=== PATIENT | female | born 1950 | race Caucasian/White ===

== ENCOUNTER 2018-02-02 15:39 | Emergency (ER) | payer MEDICARE, SELFPAY ==
[2018-02-02 15:49] VITALS: BP 154/82; PULSE 78; RESP 16; TEMP 37; O2SAT 98; BMI 29.5
--- NOTE | 2018-02-02 15:56 | DI.RAD.S_ITS ---
PROCEDURE: XR WRIST LT MIN 3V INDICATIONS: injury to left forearm TECHNIQUE: 3 views of the wrist were acquired. COMPARISON: None. FINDINGS: Bones: There is a lucency in the distal radial metaphysis. No dislocations. Severe triscaphe joint degeneration. No suspicious bony lesions. Scaphoid view: Scaphoid is intact. Soft tissues: No suspicious soft tissue calcifications. IMPRESSION: A lucency in the distal radial metaphysis may be displaced fracture or artifact. Dictated by: Roberto Lui M.D. on 02/02/2018 at 16:14 Approved by: Roberto Lui M.D. on 02/02/2018 at 16:17
--- NOTE | 2018-02-02 17:51 | ED.UPPEXIN ---
HPI - Extremity Injury (Upper) <ASHLIE Jewell - Last Filed: 02/02/18 23:13> General Chief Complaint: Extremity Injury, Upper Stated Complaint: ARM MAY BE BROKEN Time Seen by Provider: 02/02/18 17:51 Source: patient Mode of arrival: ambulatory Limitations: no limitations History of Present Illness HPI narrative: 59-year-old female here for complaint of pain into her left arm. She states she got her arm stuck between a open elevated and a railing earlier today. She complains of pain into her left wrist area. She reports increased pain with motion of the left wrist. She reports having slight swelling to the area. She denies any other injuries or concerns at this time. She reports holding her wrist still reduced pain. Related Data Home Medications Medication Instructions Recorded Confirmed CYANOCOBALAMIN (#VITAMIN B12) 25 mcg PO Q DAY #0 06/16/11 VITAMIN D (Vitamin D3) 1,000 unit PO QDAY #0 06/16/11 Previous Rx's Medication Instructions Recorded prednisone 10 mg PO SEE INSTRUCTIONS #30 tab 05/03/16 levothyroxine 12.5 mcg PO SEE INSTRUCTIONS #90 05/10/16 tab diazepam 5 mg PO Q8HP PRN #20 tab 06/08/16 hydrocodone-acetaminophen 1 tab PO Q6HP PRN #20 tab 06/08/16 hydrocodone-acetaminophen [[place]] 1 tab PO Q4-6H PRN #10 tab 02/02/18 Allergies Allergy/AdvReac Type Severity Reaction Status Date / Time fluoxetine [FLUOXETINE] Allergy Severe FACIAL Unverified 02/02/18 15:49 SWELLING sertraline [SERTRALINE] AdvReac Severe SHAKES Unverified 02/02/18 15:49 epinephrine [EPINEPHRINE] AdvReac Unknown SENSITIVE Unverified 02/02/18 15:49 Review of Systems <ASHLIE Jewell - Last Filed: 02/02/18 23:13> Constitutional Denies chills, Denies fever(s), Denies lethargy and Denies weakness Eyes Denies change in vision, Denies eye discharge, Denies irritation and Denies loss of vision ENT Ears, Nose, Mouth, and Throat: Denies change in voice, Denies neck pain and Denies sore throat Cardiovascular Denies chest pain, Denies irregular heart rhythm, Denies lightheadedness, Denies palpitations, Denies dyspnea, Denies dyspnea on exertion and Denies orthopnea Respiratory Denies cough, Denies dyspnea, Denies dyspnea on exertion and Denies wheezing Gastrointestinal Gastrointestinal: Denies abdominal pain, Denies change in bowel habits, Denies diarrhea, Denies nausea and Denies vomiting Genitourinary Denies hematuria, Denies flank pain, Denies urinary incontinence and Denies urinary urgency Musculoskeletal Denies neck pain Comments: Left wrist pain Neurologic Denies loss of vision and Denies weakness Endocrine Denies palpitations Allergic/Immunologic Denies wheezing Exam <ASHLIE Jewell - Last Filed: 02/02/18 23:13> Initial Vital Signs Initial Vital Signs: Vital Signs Temperature 98.6 F 02/02/18 15:49 Pulse Rate 78 02/02/18 15:49 Respiratory Rate 16 02/02/18 15:49 Blood Pressure 154/82 H 02/02/18 15:49 Pulse Oximetry 98 02/02/18 15:49 Const General: cooperative and well developed Nutritional Appearance: well nourished Orientation: alert, awake, oriented x3 and not confused [facility] Mouth: oral mucosae normal and moist mucous membranes Eyes Conjunctivae: conjunctivae normal Sclera: sclerae normal Pupils: PERRL EOM: EOM intact bilaterally Resp Effort & Inspection: normal respiratory effort, able to speak in complete sentences, no respiratory distress and no use of accessory muscles Auscultation: clear to auscultation bilaterally, no rales, no rhonchi and no wheezes Cardio Rate: regular rate Rhythm: regular rhythm Heart Sounds: no click, no gallops, no murmurs and no rubs Skin General: no rashes or lesions noted, No jaundice and No petechiae Neuro General: alert, oriented x3, gait normal and no focal motor deficits Speech: speech normal Extrem Other: Left wrist with no deformities. Slight amount of swelling. No ecchymosis. Distal sensation is intact. Distal range of motion is intact. Distal pulses are intact. <Evan Upton MD - Last Filed: 02/03/18 04:55> Initial Vital Signs Initial Vital Signs: Vital Signs Temperature 98.6 F 02/02/18 15:49 Pulse Rate 78 02/02/18 15:49 Respiratory Rate 16 02/02/18 15:49 Blood Pressure 154/82 H 02/02/18 15:49 Pulse Oximetry 98 02/02/18 15:49 Procedures <ASHLIE Jewell - Last Filed: 02/02/18 23:13> Orthopedic Splinting/Casting Injury #1: Side: left Upper Extremity Injury Location: wrist Upper Extremity Immobilizer: sugar tong splint Additional Comments: Sugar tong splint applied to left wrist by nursing staff. Applied appropriately. Distal CMS was intact after application. Course <ASHLIE Jewell - Last Filed: 02/02/18 23:13> Orders Ordered: Discontinued Medications Hydrocodone Bitart/Acetaminophen (Vicodin Prepack) 1 bottle MISC SEEINSTR ONE Stop: 02/02/18 19:22 Last Admin: 02/02/18 19:48 Dose: 1 bottle Vital Signs - 8 hr 02/02/18 15:49 02/02/18 19:56 Temperature 98.6 F 98.2 F Pulse Rate 78 99 H Respiratory Rate 16 16 Blood Pressure 154/82 H 144/68 H Pulse Oximetry 98 98 <Evan Upton MD - Last Filed: 02/03/18 04:55> Orders Ordered: Discontinued Medications Hydrocodone Bitart/Acetaminophen (Vicodin Prepack) 1 bottle MISC SEEINSTR ONE Stop: 02/02/18 19:22 Last Admin: 02/02/18 19:48 Dose: 1 bottle Vital Signs - 8 hr 02/02/18 15:49 02/02/18 19:56 Temperature 98.6 F 98.2 F Pulse Rate 78 99 H Respiratory Rate 16 16 Blood Pressure 154/82 H 144/68 H Pulse Oximetry 98 98 MDM - Extremity Injury (Upper) <ASHLIE Jewell - Last Filed: 02/02/18 23:13> Imaging Data wrist: Radiologist's impression: PROCEDURE: XR WRIST LT MIN 3V INDICATIONS: injury to left forearm TECHNIQUE: 3 views of the wrist were acquired. COMPARISON: None. FINDINGS: Bones: There is a lucency in the distal radial metaphysis. No dislocations. Severe triscaphe joint degeneration. No suspicious bony lesions. Scaphoid view: Scaphoid is intact. Soft tissues: No suspicious soft tissue calcifications. IMPRESSION: A lucency in the distal radial metaphysis may be non-displaced fracture or artifact. Dictated by: Roberto Lui M.D. on 02/02/2018 at 16:14 Approved by: Roberto Lui M.D. on 02/02/2018 at 16:17 ADDENDUM: Voice recognition errors corrected (underlined). Dictated by: Roberto Lui M.D. on 02/02/2018 at 16:18 Approved by: Roberto Lui M.D. on 02/02/2018 at 16:19 Addendum Dictated By: Brianna Lui M.D. Addendum Signed By: Addendum Cosigned By: DD/ /17/1620 TD/TT: 02/02/1810/17/1620 PROCEDURE: XR WRIST LT MIN 3V INDICATIONS: injury to left forearm TECHNIQUE: 3 views of the wrist were acquired. COMPARISON: None. FINDINGS: Bones: There is a lucency in the distal radial metaphysis. No dislocations. Severe triscaphe joint degeneration. No suspicious bony lesions. Scaphoid view: Scaphoid is intact. Soft tissues: No suspicious soft tissue calcifications. IMPRESSION: A lucency in the distal radial metaphysis may be displaced fracture or artifact. Dictated by: Roberto Lui M.D. on 02/02/2018 at 16:14 Approved by: Roberto Lui M.D. on 02/02/2018 at 16:17 [facility] Narrative Medical decision making narrative: X-ray the left wrist was obtained and shows possible lucency to the distal radius indicating possible fracture. She is placed in sugar-tong splint for comfort and support. [id number] Tylenol or Motrin as needed for any discomfort. Ice and elevation help with any swelling. Follow up with Orthopedics office call the number and number provided to schedule follow-up appointment. For any breakthrough pain not covered by Tylenol Motrin use [place] as prescribed return emergency room for any worsening symptoms. Discharge Plan Departure Patient Disposition: Home, Self-Care Clinical Impression: Fracture of wrist Discharge Date/Time: 02/02/18 19:57 Interventions: ED Discharge Assessment Last Done: 02/02/18 19:56 Instructions: DI for Wrist Fracture Activity Restrictions/Additional Instructions: X-ray the left wrist was obtained and shows possible fracture to the distal radius. You have been placed in a splint for comfort and support use as directed. [id number] Tylenol or Motrin as needed for any discomfort. Ice and elevation help with any swelling. Follow up with Orthopedics office call the number and number provided to schedule follow-up appointment. For any breakthrough pain not covered by Tylenol Motrin use [place] as prescribed return emergency room for any worsening symptoms. Prescriptions: New hydrocodone-acetaminophen [[place]] 5-325 mg tablet 1 tab PO Q4-6H PRN (Reason: pain) Qty: 10 RF: 0 No Action VITAMIN D (Vitamin D3) 1,000 unit PO QDAY Qty: 0 RF: 0 CYANOCOBALAMIN (#VITAMIN B12) 25 mcg PO Q DAY Qty: 0 RF: 0 prednisone 10 MG tablet 10 mg PO SEE INSTRUCTIONS Qty: 30 RF: 0 levothyroxine 25 MCG tablet 12.5 mcg PO SEE INSTRUCTIONS Qty: 90 RF: 4 hydrocodone-acetaminophen 5 MG/325 MG tablet 1 tab PO Q6HP PRNQty: 20 RF: 0 diazepam 5 MG tablet 5 mg PO Q8HP PRNQty: 20 RF: 0 Referrals: Trino Adhikari MD [Physician] - Khushboo Jenkins DO [Primary Care Provider] - <Evan Upton MD - Last Filed: 02/03/18 04:55> [facility] Att[facility]: I was available in the ER for verbal consultation, or to evaluate the patient directly if needed. I agree with the evaluation and the treatment plan.
--- NOTE | 2018-02-02 18:11 | ED_ITS ---
HPI - Extremity Injury (Upper) <ASHLIE Jewell - Last Filed: 02/02/18 23:13> General Chief Complaint: Extremity Injury, Upper Stated Complaint: ARM MAY BE BROKEN Time Seen by Provider: 02/02/18 17:51 Source: patient Mode of arrival: ambulatory Limitations: no limitations History of Present Illness HPI narrative: 59-year-old female here for complaint of pain into her left arm. She states she got her arm stuck between a open elevated and a railing earlier today. She complains of pain into her left wrist area. She reports increased pain with motion of the left wrist. She reports having slight swelling to the area. She denies any other injuries or concerns at this time. She reports holding her wrist still reduced pain. Related Data Home Medications Medication Instructions Recorded Confirmed CYANOCOBALAMIN (#VITAMIN B12) 25 mcg PO Q DAY #0 06/16/11 VITAMIN D (Vitamin D3) 1,000 unit PO QDAY #0 06/16/11 Previous Rx's Medication Instructions Recorded prednisone 10 mg PO SEE INSTRUCTIONS #30 tab 05/03/16 levothyroxine 12.5 mcg PO SEE INSTRUCTIONS #90 05/10/16 tab diazepam 5 mg PO Q8HP PRN #20 tab 06/08/16 hydrocodone-acetaminophen 1 tab PO Q6HP PRN #20 tab 06/08/16 hydrocodone-acetaminophen [[place]] 1 tab PO Q4-6H PRN #10 tab 02/02/18 Allergies Allergy/AdvReac Type Severity Reaction Status Date / Time fluoxetine [FLUOXETINE] Allergy Severe FACIAL Unverified 02/02/18 15:49 SWELLING sertraline [SERTRALINE] AdvReac Severe SHAKES Unverified 02/02/18 15:49 epinephrine [EPINEPHRINE] AdvReac Unknown SENSITIVE Unverified 02/02/18 15:49 Review of Systems <ASHLIE Jewell - Last Filed: 02/02/18 23:13> Constitutional Denies chills, Denies fever(s), Denies lethargy and Denies weakness Eyes Denies change in vision, Denies eye discharge, Denies irritation and Denies loss of vision ENT Ears, Nose, Mouth, and Throat: Denies change in voice, Denies neck pain and Denies sore throat Cardiovascular Denies chest pain, Denies irregular heart rhythm, Denies lightheadedness, Denies palpitations, Denies dyspnea, Denies dyspnea on exertion and Denies orthopnea Respiratory Denies cough, Denies dyspnea, Denies dyspnea on exertion and Denies wheezing Gastrointestinal Gastrointestinal: Denies abdominal pain, Denies change in bowel habits, Denies diarrhea, Denies nausea and Denies vomiting Genitourinary Denies hematuria, Denies flank pain, Denies urinary incontinence and Denies urinary urgency Musculoskeletal Denies neck pain Comments: Left wrist pain Neurologic Denies loss of vision and Denies weakness Endocrine Denies palpitations Allergic/Immunologic Denies wheezing Exam <ASHLIE Jewell - Last Filed: 02/02/18 23:13> Initial Vital Signs Initial Vital Signs: Vital Signs Temperature 98.6 F 02/02/18 15:49 Pulse Rate 78 02/02/18 15:49 Respiratory Rate 16 02/02/18 15:49 Blood Pressure 154/82 H 02/02/18 15:49 Pulse Oximetry 98 02/02/18 15:49 Const General: cooperative and well developed Nutritional Appearance: well nourished Orientation: alert, awake, oriented x3 and not confused [facility] Mouth: oral mucosae normal and moist mucous membranes Eyes Conjunctivae: conjunctivae normal Sclera: sclerae normal Pupils: PERRL EOM: EOM intact bilaterally Resp Effort & Inspection: normal respiratory effort, able to speak in complete sentences, no respiratory distress and no use of accessory muscles Auscultation: clear to auscultation bilaterally, no rales, no rhonchi and no wheezes Cardio Rate: regular rate Rhythm: regular rhythm Heart Sounds: no click, no gallops, no murmurs and no rubs Skin General: no rashes or lesions noted, No jaundice and No petechiae Neuro General: alert, oriented x3, gait normal and no focal motor deficits Speech: speech normal Extrem Other: Left wrist with no deformities. Slight amount of swelling. No ecchymosis. Distal sensation is intact. Distal range of motion is intact. Distal pulses are intact. <Evan Upton MD - Last Filed: 02/03/18 04:55> Initial Vital Signs Initial Vital Signs: Vital Signs Temperature 98.6 F 02/02/18 15:49 Pulse Rate 78 02/02/18 15:49 Respiratory Rate 16 02/02/18 15:49 Blood Pressure 154/82 H 02/02/18 15:49 Pulse Oximetry 98 02/02/18 15:49 Procedures <ASHLIE Jewell - Last Filed: 02/02/18 23:13> Orthopedic Splinting/Casting Injury #1: Side: left Upper Extremity Injury Location: wrist Upper Extremity Immobilizer: sugar tong splint Additional Comments: Sugar tong splint applied to left wrist by nursing staff. Applied appropriately. Distal CMS was intact after application. Course <ASHLIE Jewell - Last Filed: 02/02/18 23:13> Orders Ordered: Discontinued Medications Hydrocodone Bitart/Acetaminophen (Vicodin Prepack) 1 bottle MISC SEEINSTR ONE Stop: 02/02/18 19:22 Last Admin: 02/02/18 19:48 Dose: 1 bottle Vital Signs - 8 hr 02/02/18 15:49 02/02/18 19:56 Temperature 98.6 F 98.2 F Pulse Rate 78 99 H Respiratory Rate 16 16 Blood Pressure 154/82 H 144/68 H Pulse Oximetry 98 98 <Evan Upton MD - Last Filed: 02/03/18 04:55> Orders Ordered: Discontinued Medications Hydrocodone Bitart/Acetaminophen (Vicodin Prepack) 1 bottle MISC SEEINSTR ONE Stop: 02/02/18 19:22 Last Admin: 02/02/18 19:48 Dose: 1 bottle Vital Signs - 8 hr 02/02/18 15:49 02/02/18 19:56 Temperature 98.6 F 98.2 F Pulse Rate 78 99 H Respiratory Rate 16 16 Blood Pressure 154/82 H 144/68 H Pulse Oximetry 98 98 MDM - Extremity Injury (Upper) <ASHLIE Jewell - Last Filed: 02/02/18 23:13> Imaging Data wrist: Radiologist's impression: PROCEDURE: XR WRIST LT MIN 3V INDICATIONS: injury to left forearm TECHNIQUE: 3 views of the wrist were acquired. COMPARISON: None. FINDINGS: Bones: There is a lucency in the distal radial metaphysis. No dislocations. Severe triscaphe joint degeneration. No suspicious bony lesions. Scaphoid view: Scaphoid is intact. Soft tissues: No suspicious soft tissue calcifications. IMPRESSION: A lucency in the distal radial metaphysis may be non-displaced fracture or artifact. Dictated by: Roberto Lui M.D. on 02/02/2018 at 16:14 Approved by: Roberto Lui M.D. on 02/02/2018 at 16:17 ADDENDUM: Voice recognition errors corrected (underlined). Dictated by: Roberto Lui M.D. on 02/02/2018 at 16:18 Approved by: Roberto Lui M.D. on 02/02/2018 at 16:19 Addendum Dictated By: Brianna Lui M.D. Addendum Signed By: Addendum Cosigned By: DD/ /17/1620 TD/TT: 02/02/1810/17/1620 PROCEDURE: XR WRIST LT MIN 3V INDICATIONS: injury to left forearm TECHNIQUE: 3 views of the wrist were acquired. COMPARISON: None. FINDINGS: Bones: There is a lucency in the distal radial metaphysis. No dislocations. Severe triscaphe joint degeneration. No suspicious bony lesions. Scaphoid view: Scaphoid is intact. Soft tissues: No suspicious soft tissue calcifications. IMPRESSION: A lucency in the distal radial metaphysis may be displaced fracture or artifact. Dictated by: Roberto Lui M.D. on 02/02/2018 at 16:14 Approved by: Roberto Lui M.D. on 02/02/2018 at 16:17 [facility] Narrative Medical decision making narrative: X-ray the left wrist was obtained and shows possible lucency to the distal radius indicating possible fracture. She is placed in sugar-tong splint for comfort and support. Demn-[id number] Tylenol or Motrin as needed for any discomfort. Ice and elevation help with any swelling. Follow up with Orthopedics office call the number and number provided to schedule follow-up appointment. For any breakthrough pain not covered by Tylenol Motrin use [place] as prescribed return emergency room for any worsening symptoms. Discharge Plan Departure Patient Disposition: Home, Self-Care Clinical Impression: Fracture of wrist Discharge Date/Time: 02/02/18 19:57 Interventions: ED Discharge Assessment Last Done: 02/02/18 19:56 Instructions: DI for Wrist Fracture Activity Restrictions/Additional Instructions: X-ray the left wrist was obtained and shows possible fracture to the distal radius. You have been placed in a splint for comfort and support use as directed. [id number] Tylenol or Motrin as needed for any discomfort. Ice and elevation help with any swelling. Follow up with Orthopedics office call the number and number provided to schedule follow-up appointment. For any breakthrough pain not covered by Tylenol Motrin use [place] as prescribed return emergency room for any worsening symptoms. Prescriptions: New hydrocodone-acetaminophen [[place]] 5-325 mg tablet 1 tab PO Q4-6H PRN (Reason: pain) Qty: 10 RF: 0 No Action VITAMIN D (Vitamin D3) 1,000 unit PO QDAY Qty: 0 RF: 0 CYANOCOBALAMIN (#VITAMIN B12) 25 mcg PO Q DAY Qty: 0 RF: 0 prednisone 10 MG tablet 10 mg PO SEE INSTRUCTIONS Qty: 30 RF: 0 levothyroxine 25 MCG tablet 12.5 mcg PO SEE INSTRUCTIONS Qty: 90 RF: 4 hydrocodone-acetaminophen 5 MG/325 MG tablet 1 tab PO Q6HP PRNQty: 20 RF: 0 diazepam 5 MG tablet 5 mg PO Q8HP PRNQty: 20 RF: 0 Referrals: Trino Adhikari MD [Physician] - Khushboo Jenkins DO [Primary Care Provider] - <Evan Upton MD - Last Filed: 02/03/18 04:55> [facility]: I was available in the ER for verbal consultation, or to evaluate the patient directly if needed. I agree with the evaluation and the treatment plan.
[2018-02-02] MEDS: HYDROCODONE/ACET 5/325 PREPACK 1 BOTTLE MISC (19:48)
[2018-02-02 19:56] VITALS: BP 144/68; PULSE 99; RESP 16; TEMP 36.8; O2SAT 98
== END 2018-02-02 19:57 | disposition home or self-care (01) ==
PROVIDERS: Emergency Provider Nurse Practitioner Family; PCP Family Medicine
DX: S62.109A Fracture of unspecified carpal bone, unspecified wrist, initial encounter for closed fracture (principal); X58.XXXA Exposure to other specified factors, initial encounter
CPT/HCPCS: 29125; 29240; 73110; 99283

== ENCOUNTER 2018-04-25 14:30 | Outpatient (RCR) | payer MEDICARE, SELFPAY ==
--- NOTE | 2018-04-25 16:10 | OT.OP.EVAL ---
Visit Care Team Role Provider Type Khushboo Jenkins DO Primary Care Provider Physician Specialty: Family Practice Address: [address] [place] [address], [id number] Email: [email or web address] Sandra Sapp PA-C Attending Provider Physician Specialty: Orthopedic Surgery Address: [address] [place] [address], [phone] Fax: Email: Occupational Therapy Initial Evaluation OT Outpatient Adult Evaluation Start: 04/25/18 15:34 Freq: Status: Active Protocol: Document 04/17/18 15:37 AMS (Rec: 04/25/18 16:10 AMS [email or web address]) General Information Visit Start Time 15:30 Visit Stop Time 16:18 Total Visit Minutes 48 Visit Number 07/[id number] Plan of Care Dates 04/17/18-07/10/18 Insurance Information Medicare; g-codes required Treatment Setting Outpatient Care Note Type Initial Evaluation Referring Physician PATEL Hernandez Reason for Referral Closed fracture of distal end of left radius w/ routine healing Precautions Treatment description: Occupational therapist to evaluate and treat. Home exercise program. Range of motion. Strengthening exercises. Weight bearing status. Massage therapy. Protocol: ROM, strengthening, ultrasound , TENS, edema control for after left wrist fracture Identification Confirmed Yes: Medical chart Patient Goals Return to PLOF Medical History PMH: Medical History form completed and placed in paper chart. Significant for arthritis; back pain; PD Previous Therapy/Therapies N/A Therapy Pain Assessment When Pain Assessed pre-treat Pain Present Pain Reported Left Distal Arm Intensity 4 Scale Used Numeric (1 - 10) Patient Questionnaires Quick Dash UE Score 40 Quick Dash UE Impairment 40 to 59% Impaired (Score 40- 59) Observations Severity Mild Goals Treatment Instructed in HEP. Pt denied questions. Short Term Goals 1. Patient will be mod I with home edema program. 2. 4+/5 MMT L wrist UD. 3. 4+/[address] Assisted Goals 1. Patient will be mod I with home exercise program utilizing provided written and visual instructions. 2. Patient will be able to actively incorporate left upper extremity/hand in daily life without complaints of pain or discomfort, as evidenced by obtaining a score of <10.0 on the QuickDASH UE Outcome Measure. 3. Patient will be able to actively incorporate the left upper extremity/hand in daily life d/t reduction in pain and discomfort, as evidenced by indication of 1 or less out of 10 on the Pain Assessment Grid scale. Assessment/Plan Patient Response Good Rehabilitation Potential Good Impairments Identified Flexibility Functional Activities Motor Function Pain Weakness Range of Motion Recreational Activities Meaningful Activities Stiffness Tremors Swelling Soft Tissue Mobility Motor Planning Treatment Assessment Pt is a 67 year-old female referred to outpt OT for treatment following closed fracture of distal end of left radius w/ routine healing. Physician overseeing care provided the following treatment/protocol recommendations: Occupational therapist to dotty and maia. HEP. Range of motion. Strengthening exercises. Weight bearing status. Massage therapty. ROM, strengthening, ultrasound, TENS, edema control for after left wrist fracture. PMH: arthritis; back pain; parkinson's disease (pt reports L UE affected more than R UE). PLOF: mod I w/ basic and instrumental ADLS . Evaluation findings: R hand dominant female; report of Parkinson's disease affecting L UE > R UE; mild swelling; pain of distal R UE d/t fracture; decreased pain-free AROM; decreased distal L UE strength; decreased weight bearing tolerance; decreased functional abilities; increased reliance on R UE. Outpt OT is recommended to address these areas in order to maximize pt's functional independence and success w/ engagement in meaningful activities on daily basis w/ active incorporation of non- dominant L UE. Reviewed with Patient Home Exercise Program Patient Understanding Good Comment 12 weeks Treatment Frequency Twice a Week Therapeutic Contents Active Range of Motion Client Education Functional Activities Home Exercise Program Joint Protection Manual Therapy Education Neuromuscular Re-Education Self-Care Stretching/Flexibility Activities Therapeutic Activities Therapeutic Exercises Modalities Sensory Re-education Modalities As Needed As Prescribed Types of Modalities Contrast Bath E-Stim Ice Massage TENS Placement/Application Ultrasound Patient Instruction Home Exercise Program Plan of Care Questions/Concerns Occupational Therapy Assessment OT Outpatient Range of Motion Start: 04/25/18 15:34 Freq: Status: Active Protocol: Document 04/17/18 15:37 AMS (Rec: 04/25/18 16:10 AMS [email or web address]) ROM - Wrist Wrist Range of Motion Measured in Degrees Left ROM Testing Position Sitting Wrist Flex AROM (degrees) 55 Wrist Ext AROM Fingers Open (degrees) 70 Ulnar Deviation AROM (degrees) 30 Radial Deviation AROM (degrees) 15 Wrist ROM WFL No Right ROM Testing Position Sitting Wrist Flex AROM (degrees) 70 Wrist Ext AROM Fingers Open (degrees) 70 Ulnar Deviation AROM (degrees) 35 Radial Deviation AROM (degrees) 20 Wrist ROM WFL Yes ROM Limitations Wrist ROM Limitations Pain Swelling Other Occupational Therapy Assessment OT Outpatient Muscle Testing Start: 04/25/18 15:34 Freq: Status: Active Protocol: Document 04/17/18 15:37 AMS (Rec: 04/25/18 16:10 AMS [email or web address]) Wrist Strength Wrist Manual Muscle Testing Left Flexion (C7) 4+ Good+ Extension (C6) 4+ Good+ Ulnar Deviation 3+ Fair+ Radial Deviation 3+ Fair+ Right Flexion (C7) 5 Normal Extension (C6) 5 Normal Ulnar Deviation 5 Normal Radial Deviation 5 Normal Sorority Mother/Hand Strength Sorority Mother/Hand Strength Left Sorority Mother Dynamometer II 23.0 Lateral Pinch Strengh (lbs) 16.0 Right Sorority Mother Dynamometer II 28.7 Lateral Pinch Strengh (lbs) 16
--- NOTE | 2018-04-26 12:54 | OT.OP.TRT ---
Visit Care Team Role Provider Type Khushboo Jenkins DO Primary Care Provider Physician Specialty: Family Practice Address: [address] [place] [address], [phone] Email: [email or web address] Sandra Sapp PA-C Attending Provider Physician Specialty: Orthopedic Surgery Address: [address] [place] [address], [address] Fax: Email: Occupational Therapy Treatment Note OT Outpatient Treatment Note - Adult Start: 04/25/18 15:34 Freq: Status: Active Protocol: Document 04/25/18 15:30 AMS (Rec: 04/26/18 12:54 AMS [email or web address]) OT Outpatient Adult Treatment Note Session Time Visit Start Time 14:30 Visit Stop Time 15:18 Total Visit Minutes 48 Visit Information Visit Number 08/[id number] Plan of Care Dates 04/17/18-07/10/18 Insurance Information Medicare; g-codes required Setting Treatment Setting Outpatient Care Visit Type Note Type Treatment Note General Information General Information Pt is a 67 year-old female referred to outpt OT for treatment following closed fracture of distal end of left radius w/ routine healing. Physician overseeing care provided the following treatment/protocol recommendations: Occupational therapist to eval and treat. HEP. Range of motion. Strengthening exercises. Weight bearing status. Massage therapty. ROM, strengthening, ultrasound, TENS, edema control for after left wrist fracture. PMH: arthritis; back pain; parkinson's disease (pt reports L UE affected more than R UE). PLOF: mod I w/ basic and instrumental ADLS . - Subjective Identification Type Name Identification Reconciled With Medical Record Observations I did all the exercises per Hattie. Chief Complaint(s) Restricts Patient/Caregiver Compliance with Home Good Exercise Program - Objective Objective Measurements (+) investment in personal edema distal UE glove; discussed fit of glove d/t concerns verbalized by pt. Increasing julio for WB; able to execute prayer pose without c /o pain/discomfort. Short Term Goals 1. Patient will be mod I with home edema program. 2. 4+/5 MMT L wrist UD. 3. 4+/[address] Senior Care Goals 1. Patient will be mod I with home exercise program utilizing provided written and visual instructions. 2. Patient will be able to actively incorporate left upper extremity/hand in daily life without complaints of pain or discomfort, as evidenced by obtaining a score of <10.0 on the QuickDASH UE Outcome Measure. 3. Patient will be able to actively incorporate the left upper extremity/hand in daily life d/t reduction in pain and discomfort, as evidenced by indication of 1 or less out of 10 on the Pain Assessment Grid scale. - Exercises 4 Descriptor HEP. Pt denied need for written and/or visual instructions. Recommended circumduction circles of wrist in both directions w/ elbow extended; use of green theraputty w/ strengthening w/ education re: avoidance of compensatory patterns and/or abnormal movement patterns; modified WB seated and w/ use of wall. Complexity Upgraded 3 Descriptor ROM exercises Complexity Upgraded 2 Descriptor Thumb strengthening Green theraputty Complexity Upgraded 1 Descriptor Weight bearing Progression to seated WB (L, R , forward, back) Progression to WB wall as tolerated Complexity Upgraded - Assessment Patient Response to Treatment Good Rehab Potential Good Impairments Identified ADLs Coordination/Dexterity Flexibility Functional Activities Motor Function Pain Weakness Range of Motion Recreational Activities Meaningful Activities Stiffness Tremors Swelling Soft Tissue Mobility Motor Planning Eye-Hand Coordination Assessment of Overall Progress Improving Assessment of Improvement Improving tolerance for weight bearing activities; improving pain-free active range of motion of wrist. Improving self-management of edema in the home (invested in personal edema glove); however, fit may be too large. Recommended contacting vision impaired teacher if it was originally too large vs. swelling reduction. Pt however , continues to present w/ decreased strength of the distal UE and decreased ability to actively engage in meaningful activities on daily basis w/ inclusion of non- dominant L hand. Thus, continued outpt OT recommended . Home Exercise Program Please refer to treatment section of note for specific details. Reviewed with Patient/Caregiver Goals Progress Being Made Home Exercise Program - Plan Therapy Recommendations Continue with Current Program Advance per Rehabilitation Protocol Occupational Therapy Assessment OT Outpatient Modality Start: 04/25/18 15:34 Freq: Status: Active Protocol: Document 04/25/18 15:30 AMS (Rec: 04/26/18 12:54 AMS [email or web address]) OT Outpatient Modality Treatment Left Forearm Name of Modality Ultrasound Duration (Minutes) 10 Body Position Sitting Parameters 20% duty cycle; 2.0 w/cm2 Comments Skin intact pre- and post- ultrasound treatment.
--- NOTE | 2018-06-05 12:49 | OT.OP.DC ---
Visit Care Team Role Provider Type Khushboo Jenkins DO Primary Care Provider Physician Address: [address] [place] [address], [address] Email: [email or web address] Sandra Sapp PA-C Attending Provider Physician Address: [address] [place] [address], [phone] Fax: Email: OT Outpatient OT Outpatient Adult Evaluation Start: 04/25/18 15:34 Freq: Status: Active Protocol: Document 04/17/18 15:37 AMS (Rec: 04/25/18 16:10 AMS [email or web address]) General Information Session Time Visit Start Time 15:30 Visit Stop Time 16:18 Total Visit Minutes 48 Visit Information Visit Number 07/11 Plan of Care Dates 04/17/18-07/10/18 Insurance Information Medicare; g-codes required Setting Treatment Setting Outpatient Care Visit Type Note Type Initial Evaluation Referral Referring Physician PATEL Hernandez Reason for Referral Closed fracture of distal end of left radius w/ routine healing Precautions Treatment description: Occupational therapist to evaluate and treat. Home exercise program. Range of motion. Strengthening exercises. Weight bearing status. Massage therapy. Protocol: ROM, strengthening, ultrasound , TENS, edema control for after left wrist fracture Identification Identification Confirmed Yes: Medical chart Patient Patient Goals Return to PLOF Medical Information Medical History PMH: Medical History form completed and placed in paper chart. Significant for arthritis; back pain; PD Previous Therapy Previous Therapy/Therapies N/A Therapy Pain Assessment Pain When Pain Assessed pre-treat Pain Present Pain Present Pain Reported Location Left Distal Arm Intensity 4 Scale Used Numeric (1 - 10) Patient Questionnaires Quick Dash- Upper Extremity Quick Dash UE Score 40 Quick Dash UE Impairment 40 to 59% Impaired (Score 40- 59) Observations Swelling Severity Mild Goals Treatment Treatment Instructed in HEP. Pt denied questions. Short Term Goals Short Term Goals 1. Patient will be mod I with home edema program. 2. 4+/5 MMT L wrist UD. 3. 4+/[address] Helpdesk Analyst Goals Helpdesk Analyst Goals 1. Patient will be mod I with home exercise program utilizing provided written and visual instructions. 2. Patient will be able to actively incorporate left upper extremity/hand in daily life without complaints of pain or discomfort, as evidenced by obtaining a score of <10.0 on the QuickDASH UE Outcome Measure. 3. Patient will be able to actively incorporate the left upper extremity/hand in daily life d/t reduction in pain and discomfort, as evidenced by indication of 1 or less out of 10 on the Pain Assessment Grid scale. Assessment/Plan Assessment Patient Response Good Rehabilitation Potential Good Impairments Identified Flexibility Functional Activities Motor Function Pain Weakness Range of Motion Recreational Activities Meaningful Activities Stiffness Tremors Swelling Soft Tissue Mobility Motor Planning Treatment Assessment Pt is a 67 year-old female referred to outpt OT for treatment following closed fracture of distal end of left radius w/ routine healing. Physician overseeing care provided the following treatment/protocol recommendations: Occupational therapist to eval and trat. HEP. Range of motion. Strengthening exercises. Weight bearing status. Massage therapty. ROM, strengthening, ultrasound, TENS, edema control for after left wrist fracture. PMH: arthritis; back pain; parkinson's disease (pt reports L UE affected more than R UE). PLOF: mod I w/ basic and instrumental ADLS . Evaluation findings: R hand dominant female; report of Parkinson's disease affecting L UE > R UE; mild swelling; pain of distal R UE d/t fracture; decreased pain-free AROM; decreased distal L UE strength; decreased weight bearing tolerance; decreased functional abilities; increased reliance on R UE. Outpt OT is recommended to address these areas in order to maximize pt's functional independence and success w/ engagement in meaningful activities on daily basis w/ active incorporation of non- dominant L UE. Reviewed with Patient Home Exercise Program Patient Understanding Good Plan Comment 12 weeks Treatment Frequency Twice a Week Therapeutic Contents Active Range of Motion Client Education Functional Activities Home Exercise Program Joint Protection Manual Therapy Education Neuromuscular Re-Education Self-Care Stretching/Flexibility Activities Therapeutic Activities Therapeutic Exercises Modalities Sensory Re-education Modalities As Needed As Prescribed Types of Modalities Contrast Bath E-Stim Ice Massage TENS Placement/Application Ultrasound Patient Instruction Home Exercise Program Plan of Care Questions/Concerns Sensory Assessment Sensory Profile2 Functional Wrist/Hand Scan Hand Side OT Outpatient Muscle Testing Start: 04/25/18 15:34 Freq: Status: Active Protocol: Document 04/25/18 15:30 AMS (Rec: 04/26/18 12:54 AMS [email or web address]) Wrist Strength Wrist Manual Muscle Testing Left Flexion (C7) 4+ Good+ Extension (C6) 4+ Good+ Ulnar Deviation 3+ Fair+ Radial Deviation 3+ Fair+ Right Flexion (C7) 5 Normal Extension (C6) 5 Normal Ulnar Deviation 5 Normal Radial Deviation 5 Normal Dope Heater/Hand Strength Dope Heater/Hand Strength Left Dope Heater Dynamometer II 23.0 Lateral Pinch Strengh (lbs) 16.0 Right Dope Heater Dynamometer II 28.7 Lateral Pinch Strengh (lbs) 16 OT Outpatient Range of Motion Start: 04/25/18 15:34 Freq: Status: Active Protocol: Document 04/25/18 15:30 AMS (Rec: 04/26/18 12:54 AMS [email or web address]) ROM - Wrist Wrist Range of Motion Measured in Degrees Left ROM Testing Position Sitting Wrist Flex AROM (degrees) 55 Wrist Ext AROM Fingers Open (degrees) 70 Ulnar Deviation AROM (degrees) 30 Radial Deviation AROM (degrees) 15 Wrist ROM WFL No Right ROM Testing Position Sitting Wrist Flex AROM (degrees) 70 Wrist Ext AROM Fingers Open (degrees) 70 Ulnar Deviation AROM (degrees) 35 Radial Deviation AROM (degrees) 20 Wrist ROM WFL Yes ROM Limitations Wrist ROM Limitations Pain Swelling Other OT Outpatient Treatment Note - Adult Start: 04/25/18 15:34 Freq: Status: Active Protocol: Document 06/05/18 12:47 AMS (Rec: 06/05/18 12:49 AMS [email or web address]) OT Outpatient Adult Treatment Note Visit Information Visit Number 08/11 Plan of Care Dates 04/17/18-07/10/18 Insurance Information Medicare; g-codes required Setting Treatment Setting Outpatient Care Visit Type Note Type Discharge Summary General Information General Information Pt is a 67 year-old female referred to outpt OT for treatment following closed fracture of distal end of left radius w/ routine healing. Physician overseeing care provided the following treatment/protocol recommendations: Occupational therapist to eval and treat. HEP. Range of motion. Strengthening exercises. Weight bearing status. Massage therapty. ROM, strengthening, ultrasound, TENS, edema control for after left wrist fracture. PMH: arthritis; back pain; parkinson's disease (pt reports L UE affected more than R UE). PLOF: mod I w/ basic and instrumental ADLS . - Subjective Observations Hattie has not been seen by outpt OT since April 25, 2018. Thus, patient to be discharged from outpatient OT at this time. - Objective Short Term Goals ALL GOALS DISCHARGED OF 06/05/18 1. Patient will be mod I with home edema program. 2. 4+/5 MMT L wrist UD. 3. 4+/[address] Helpdesk Analyst Goals ALL GOALS DISCHARGED OF 06/05/18 1. Patient will be mod I with home exercise program utilizing provided written and visual instructions. 2. Patient will be able to actively incorporate left upper extremity/hand in daily life without complaints of pain or discomfort, as evidenced by obtaining a score of <10.0 on the QuickDASH UE Outcome Measure. 3. Patient will be able to actively incorporate the left upper extremity/hand in daily life d/t reduction in pain and discomfort, as evidenced by indication of 1 or less out of 10 on the Pain Assessment Grid scale. - - Assessment Assessment of Improvement Hattie has not been seen by outpt OT since April 25, 2018. Thus, patient to be discharged from outpatient OT at this time. - Plan Therapy Recommendations Discharge from Occupational Therapy
== END 2018-06-27 11:47 ==
LOC: OT 14:30
PROVIDERS: PCP Family Medicine; Visit Provider Physician Assistant
DX: S52.502D Unspecified fracture of the lower end of left radius, subsequent encounter for closed fracture with routine healing (principal)
CPT/HCPCS: 97035; 97110; 97140; 97165

== ENCOUNTER 2018-05-28 12:12 | Day surgery (SDC) | payer MEDICARE, SELFPAY ==
[2018-05-28] MEDS: PROPARACAINE 0.5% OPHTH SOL 2 DROPS EYE-OP (13:25)
[2018-05-28 13:26] VITALS: BP 140/72; PULSE 67; RESP 16; TEMP 36.2; O2SAT 99; BMI 29.5
[2018-05-28] MEDS: CATARACT EYE COMPOUND (10 DROPS/SYRINGE) 3 DROPS EYE-OP (13:42)
--- NOTE | 2018-05-28 14:02 | PM.PREOP ---
Pre-operative Note Interval Note Changes: No
--- NOTE | 2018-05-28 14:03 | P.OP.PRE_ITS ---
Pre-operative Note Interval Note Changes: No
--- NOTE | 2018-05-28 14:03 | PM.OP.1 ---
Operative Date/Time/Diagnoses Pre-op diagnosis: Nuclear cataract right eye Procedure & Clinicians Procedure: Cataract Surgery Same procedure as scheduled: Yes Surgeon: Wili Diego Anesthesia Type: MAC +/- and Sedation Operative Notes Procedure in detail: Patient brought to the operating suite. Tetracaine drops placed in the right eye. The marking instrument was used to chicho the vertical and horizontal meridians. Patient was prepped and draped in sterile manner. Wire lid speculum was placed in the eye. Marking instrument was used to chicho the 80 degree meridian. Betadine drops were placed on the eye. This was irrigated. Lidocaine jelly was placed on the eye. A paracentesis port was created with a side-port blade. 0.1 mL 1% preservative free lidocaine was injected into the anterior chamber. The anterior chamber was deepened with viscoelastic. 2.6 mm keratome was used to create a temporal clear corneal incision. Cystotome and Utrata forceps were used to create continuous tear capsulorrhexis. Balanced salt solution was used to hydro dissect the nucleus. The phacoemulsification handpiece was inserted and the nucleus was removed using the stop and chop technique. The irrigation aspiration handpiece was inserted and the remaining cortex was removed. Anterior chamber was deepened with viscoelastic. An Baeza [id number] intraocular lens with a power of 20.5 was injected into the capsular bag. Irrigation aspiration handpiece was inserted and the remaining viscoelastic was removed. The lens was rotated to the 80 degree meridian. Incision was hydrated with balanced salt solution and found to be leak free with pressure with Weck-Carla sponges. 0.1 mL Vigamox injected anterior chamber. 0.3 mL Kenalog 10 mg was injected subconjunctivally. Lid speculum was removed. The patient left the operating room in excellent condition. Complications: none Condition: stable Disposition: same day surgery
[2018-05-28] MEDS: CHONDROIDTIN/SOD HYALURONATE 1.05 ML SYRINGE INTRAOCULA (14:15)
[2018-05-28] MEDS: PHENYLEPHRINE/LIDOCAINE VIAL (OR) 0.2 ML EYE-OP (14:15)
[2018-05-28] MEDS: MOXIFLOXACIN OPHTH DROPS 3 ML BOTTLE 2 DROPS INJ (14:15)
[2018-05-28] MEDS: TRIAMCINOLONE 50 MG/5 ML VIAL INJ (14:15)
[2018-05-28] MEDS: BALANCED SALT IRRIG SOLN NO.2 500 ML, EPINEPHrine 1 MG IRR (14:16)
[2018-05-28] MEDS: TETRACAINE 0.5% OPHTH DROPS 15 ML 2 DROPS EYE-RIGHT (14:16)
[2018-05-28] MEDS: LIDOCAINE JELLY 2% 5 ML 1 APPLIC TOP (14:17)
[2018-05-28 14:29] VITALS: BP 127/70; PULSE 67; RESP 16; TEMP 37.1; O2SAT 98
--- NOTE | 2018-05-28 14:51 | SUR.PHASEII ---
1449: Pt d\c'd from Phase in stable condition. D/C paperwork reviewed, IV out, Pt back to baseline and is driving her home. No questions at this time.
--- NOTE | 2018-05-28 14:53 | SUR.PHASEII ---
Anesthesia End time as [id number]
== END 2018-05-28 14:49 | disposition home or self-care (01) ==
PROVIDERS: PCP Family Medicine; Visit Provider Ophthalmology
DX: H25.11 Age-related nuclear cataract, right eye (principal); G20 Parkinson's disease; G43.909 Migraine, unspecified, not intractable, without status migrainosus
CPT/HCPCS: J0171; J2250; J3010; J3301; V2787

== ENCOUNTER 2018-06-11 10:43 | Day surgery (SDC) | payer MEDICARE, SELFPAY ==
[2018-06-11 11:06] VITALS: BP 141/74; PULSE 67; RESP 16; TEMP 36.5; O2SAT 98; BMI 29.5
[2018-06-11] MEDS: PROPARACAINE 0.5% OPHTH SOL 2 DROPS EYE-OP (11:21)
[2018-06-11] MEDS: CATARACT EYE COMPOUND (10 DROPS/SYRINGE) 3 DROPS EYE-OP (11:24)
--- NOTE | 2018-06-11 12:28 | P.OP.PRE_ITS ---
Pre-operative Note Interval Note Changes: No
--- NOTE | 2018-06-11 12:28 | PM.PREOP ---
Pre-operative Note Interval Note Changes: No
--- NOTE | 2018-06-11 12:28 | PM.OP.1 ---
Operative Date/Time/Diagnoses Pre-op diagnosis: Nuclear Cataract Left eye Post-op diagnosis: same Procedure & Clinicians Surgeon: Wili Diego Anesthesia Type: MAC +/- and Sedation Operative Notes Procedure in detail: Patient brought to the operating suite. Tetracaine drops placed in the left eye. Marking instrument was used to chicho the vertical and horizontal meridian. Patient was prepped and draped in sterile manner. Wire lid speculum was placed in the eye. Marking instrument was used to chicho the 100 degree meridian. Betadine drops were placed on the eye. This was irrigated. Lidocaine jelly was placed on the eye. A paracentesis port was created with a side-port blade. 0.1 mL 1% preservative free lidocaine was injected into the anterior chamber. The anterior chamber was deepened with viscoelastic. 2.6 mm keratome was used to create a temporal clear corneal incision. Cystotome and Utrata forceps were used to create continuous tear capsulorrhexis. Balanced salt solution was used to hydro dissect the nucleus. The phacoemulsification handpiece was inserted and the nucleus was removed using the stop and chop technique. The irrigation aspiration handpiece was inserted and the remaining cortex was removed. Anterior chamber was deepened with viscoelastic. An Baeza [id number] intraocular lens with a power of 21.0 was injected into the capsular bag. Irrigation aspiration handpiece was inserted and the remaining viscoelastic was removed. The lens was rotated to the 100 degree meridian. Incision was hydrated with balanced salt solution and found to be leak free with pressure with Weck-Carla sponges. 0.1 mL Vigamox injected anterior chamber. 0.3 mL Kenalog 10 mg was injected subconjunctivally. Lid speculum was removed. The patient left the operating room in excellent condition. Complications: none Condition: stable Disposition: same day surgery
[2018-06-11] MEDS: PHENYLEPHRINE/LIDOCAINE VIAL (OR) 0.2 ML EYE-OP (12:42)
[2018-06-11] MEDS: MOXIFLOXACIN OPHTH DROPS 3 ML BOTTLE 2 DROPS INJ (12:45)
[2018-06-11] MEDS: TRIAMCINOLONE 50 MG/5 ML VIAL INJ (12:46)
[2018-06-11] MEDS: CHONDROIDTIN/SOD HYALURONATE 1.05 ML SYRINGE INTRAOCULA (12:46)
[2018-06-11] MEDS: LIDOCAINE JELLY 2% 5 ML 1 APPLIC TOP (12:46)
[2018-06-11] MEDS: TETRACAINE 0.5% OPHTH DROPS 15 ML 2 DROPS EYE-LEFT (12:47)
[2018-06-11] MEDS: BALANCED SALT IRRIG SOLN NO.2 500 ML, EPINEPHrine 1 MG IRR (12:47)
[2018-06-11 13:03] VITALS: BP 152/76; PULSE 63; RESP 16; TEMP 36.2; O2SAT 97
--- NOTE | 2018-06-11 13:13 | SUR.PHASEII ---
delayed by errands, pt ready to go but needs to wait for to return, due to neck pain pt more comfortable laying than sitting so placed on stretcher, call light tin reach.
--- NOTE | 2018-06-11 13:21 | SUR.PHASEII ---
returned pt ready to go. left in stable condition.
== END 2018-06-11 13:21 ==
PROVIDERS: PCP Family Medicine; Visit Provider Ophthalmology
DX: H25.12 Age-related nuclear cataract, left eye (principal); G20 Parkinson's disease
CPT/HCPCS: J0171; J2250; J3010; J3301; V2787

== ENCOUNTER 2018-07-08 10:49 | Emergency (ER) | payer MEDICARE, SELFPAY ==
[2018-07-08 11:00] VITALS: BP 156/83; PULSE 75; RESP 16; TEMP 36.6; O2SAT 99; BMI 29.5
--- NOTE | 2018-07-08 12:39 | ED.NECK ---
HPI - Neck Pain/Injury <Zunilda Khoury PA-C - Last Filed: 07/08/18 21:57> General Chief Complaint: Neck Pain/Injury Stated Complaint: PINCHED NERVE IN NECK Time Seen by Provider: 07/08/18 12:39 Source: patient Mode of arrival: ambulatory Limitations: no limitations History of Present Illness HPI Narrative: This 67-year-old female complains of exacerbation of chronic neck pain. She states that this started over the holidays just due to decorating, shopping, etc, and has gotten progressively worse. Pain radiates from her neck down into the right shoulder and arm. She denies any acute weakness in her extremities, no paresthesia. She states that this is the typical pattern of her pain, exacerbated sometimes by the caller that she wears when it flares up because it puts pressure on the side of her neck and shoulder. She has a history of degenerative disc disease, and HNP as well as cervical fusion (level unknown). She states that typically her spine surgeon prescribed a Medrol Dosepak which works really well for her. She states she came here because unable to get an appointment with her PCP and would not prescribe this for her. She states that she had a couple of Davenport left from 2 years ago at home and took this but caused her to vomit. She has taken it before with some relief, but steroids work better. She states that she is unable to get in to see her surgeon without a current MRI because it has been a couple of years. She denies any acute injury, falls, or new qualities to her pain. Related Data Home Medications Medication Instructions Recorded Confirmed carbidopa-levodopa 1 tab PO Q12H 05/28/18 07/10/18 Previous Rx's Medication Instructions Recorded methylprednisolone [Medrol (Alistair)] See Label Instructions PO PER PKG 07/08/18 DIR #21 each ondansetron 4 mg PO Q6-8H PRN #10 tab 07/08/18 hydrocodone 5 mg-acetaminophen 325 1 tab PO Q4-6H PRN #30 tab 07/10/18 mg tablet Allergies Allergy/AdvReac Type Severity Reaction Status Date / Time fluoxetine [FLUOXETINE] Allergy Severe FACIAL Verified 07/10/18 13:28 SWELLING sertraline [SERTRALINE] AdvReac Severe SHAKES Verified 07/10/18 13:28 epinephrine [EPINEPHRINE] AdvReac Unknown SENSITIVE Verified 07/10/18 13:28 Review of Systems <Zunilda Khoury PA-C - Last Filed: 07/08/18 21:57> Review of Systems All systems reviewed & are unremarkable except as noted in HPI and below Exam <Zunilda Khoury PA-C - Last Filed: 07/08/18 21:57> Narrative Exam Narrative: GENERAL APPEARANCE: Patient appears somewhat uncomfortable, in NAD LUNGS: Clear to auscultation bilaterally. HEART: Rate and rhythm regular without murmur, normal S1 and S2, no S3 or S4. NEUROLOGIC: Patient is alert and oriented, sensation grossly intact through the upper extremity, head tremor noted MUSCULOSKELETAL: No cervical or upper thoracic spinal point tenderness. Some tenderness over the right lateral cervical musculature and upper traps. Reduced right lateral bend and rotation secondary to tenderness. Biceps, shoulder, wall cleaner strength 5/5 bilaterally Initial Vital Signs Initial Vital Signs: Vital Signs Temperature 97.9 F 07/08/18 11:00 Pulse Rate 75 07/08/18 11:00 Respiratory Rate 16 07/08/18 11:00 Blood Pressure 156/83 H 07/08/18 11:00 Pulse Oximetry 99 07/08/18 11:00 <Anel Weinstein DO - Last Filed: 07/12/18 08:05> Initial Vital Signs Initial Vital Signs: Vital Signs Temperature 97.9 F 07/08/18 11:00 Pulse Rate 75 07/08/18 11:00 Respiratory Rate 16 07/08/18 11:00 Blood Pressure 156/83 H 07/08/18 11:00 Pulse Oximetry 99 07/08/18 11:00 Course <Zunilda Khoury PA-C - Last Filed: 07/08/18 21:57> Additional Information: Orders Ordered: Discontinued Medications Hydrocodone Bitart/Acetaminophen (Davenport 5/325) 1 tab PO NOW ONE Stop: 07/08/18 12:55 Last Admin: 07/08/18 13:13 Dose: 1 tab Ondansetron HCl (Zofran Odt) 4 mg PO NOW ONE Stop: 07/08/18 12:55 Last Admin: 07/08/18 13:09 Dose: 4 mg Vital Signs - 8 hr 07/08/18 11:00 Temperature 97.9 F Pulse Rate 75 Respiratory Rate 16 Blood Pressure 156/83 H Pulse Oximetry 99 <Anel Botnick, DO - Last Filed: 07/12/18 08:05> Orders Ordered: Discontinued Medications Hydrocodone Bitart/Acetaminophen (Davenport 5/325) 1 tab PO NOW ONE Stop: 07/08/18 12:55 Last Admin: 07/08/18 13:13 Dose: 1 tab Ondansetron HCl (Zofran Odt) 4 mg PO NOW ONE Stop: 07/08/18 12:55 Last Admin: 07/08/18 13:09 Dose: 4 mg Vital Signs - 8 hr 07/08/18 11:00 Temperature 97.9 F Pulse Rate 75 Respiratory Rate 16 Blood Pressure 156/83 H Pulse Oximetry 99 Discharge Plan Departure Patient Disposition: Home Clinical Impression: Cervical radicular pain Discharge Date/Time: 07/08/18 13:26 Interventions: ED Discharge Assessment Last Done: 07/08/18 13:25 Instructions: DI for Cervical Radiculopathy Activity Restrictions/Additional Instructions: Please return if you have acute changes such as weakness in your arm or abrupt increase in your pain. Otherwise, please call your PCP office today to schedule a follow-up appointment. You may be able to see someone else in the office. Talk with them about scheduling an MRI for you or giving you an order so that you can get this done and follow up with your surgeon (you may need insurance authorization). In the interim, you can start the steroids again since they have helped you in the past. I have prescribed a few hydrocodone/acetaminophen with nausea pills for you to use while the steroids are starting to take effect if needed. Remember not to drive as those could make you sleepy. Prescriptions: New methylprednisolone [Medrol (Alistair)] 4 mg tablets,dose pack See Label Instructions PO PER PKG DIR Qty: 21 RF: 0 ondansetron 4 mg tablet,disintegrating 4 mg PO Q6-8H PRN (Reason: nausea with pain meds) Qty: 10 RF: 0 No Action hydrocodone-acetaminophen [Davenport] 5-325 mg tablet 1 tab PO Q4-6H PRN (Reason: acute neck pain) Qty: 30 RF: 0 carbidopa-levodopa 50-200 mg Tablet Extended Release 1 tab PO Q12H RF: 0 Referrals: Khushboo Jenkins DO [Primary Care Provider] - <Anel Weinstein DO - Last Filed: 07/12/18 08:05> Cosign ED Attending Cosmaverickature Attestation: I was immediately available in the department for consultation. Documentation has been reviewed. I agree with assessment and plan.
[2018-07-08] MEDS: ONDANSETRON 4 MG ODT PO (13:09)
[2018-07-08] MEDS: HYDROCODONE/ACET 5/325 TABLET 1 TAB PO (13:13)
[2018-07-08 13:25] VITALS: BP 140/72; PULSE 80; RESP 14; O2SAT 98
== END 2018-07-08 13:26 | disposition home or self-care (01) ==
PROVIDERS: Emergency Provider Internal Medicine; PCP Family Medicine
DX: M54.12 Radiculopathy, cervical region (principal)
CPT/HCPCS: 99282; 99283

== ENCOUNTER → 2020-07-27 10:40 | Outpatient (CLI) | payer MEDICARE, SELFPAY ==
--- NOTE | 2020-07-27 10:42 | DI.RAD.S_ITS ---
PROCEDURE: XR CHEST 2V INDICATIONS: upper back pain with chronic cough x2 yrs, worsening TECHNIQUE: 2 views of the chest were acquired. COMPARISON: [facility], , CHEST 2 VIEW, 11/19/2008, 9:57. FINDINGS: Surgical changes and devices: None. Lungs and pleura: Lungs are clear. No pleural effusions or pneumothorax. Mediastinum: Mediastinal contours are normal. Heart size is normal. Bones and chest wall: No suspicious bony abnormalities. Soft tissues appear unremarkable. IMPRESSION: No acute cardiopulmonary disease. Dictated by: Roberto Lui M.D. on 07/27/2020 at 11:03 Approved by: Roberto Lui M.D. on 07/27/2020 at 11:03
--- NOTE | 2020-07-27 10:42 | DI.RAD.S_ITS ---
PROCEDURE: XR THORACIC SPINE 3V INDICATIONS: upper back pain with chronic cough x2 yrs, worsening TECHNIQUE: 3 views of the thoracic spine were acquired. COMPARISON: [facility], [facility], CHEST 2 VIEW, 11/19/2008, 9:57. [facility], [facility], XR CHEST 2V, 07/27/2020, 10:48. FINDINGS: Bones: No fractures or dislocations. No suspicious bony lesions. 12 pairs of ribs are noted, and appear intact where visualized. The 12th pair of ribs are rudimentary. There is moderate degenerative disc disease in thoracic and upper lumbar spine. Note is made of fusion of C4-C5. Soft tissues: No paravertebral stripe thickening. IMPRESSION: Moderate degenerative disc disease in thoracic and upper lumbar spine. Dictated by: Roberto Lui M.D. on 07/27/2020 at 11:04 Approved by: Roberto Lui M.D. on 07/27/2020 at 11:08
== END ==
PROVIDERS: PCP Family Medicine; Referring Provider Physician Assistant; Visit Provider Physician Assistant
DX: R05 Cough (principal); M54.6 Pain in thoracic spine; M47.814 Spondylosis without myelopathy or radiculopathy, thoracic region; M47.816 Spondylosis without myelopathy or radiculopathy, lumbar region; Z98.1 Arthrodesis status
CPT/HCPCS: 71046; 72072

== ENCOUNTER → 2020-08-19 12:06 | Outpatient (CLI) | payer MEDICARE, SELFPAY ==
--- NOTE | 2020-08-19 12:07 | DI.CT.S_ITS ---
PROCEDURE: CT CHEST WO CON INDICATIONS: cough, long standing h/o second hand smoke TECHNIQUE: Noncontrast 5 mm thick sections acquired from the pulmonary apices to the posterior costophrenic angles. 1 mm lung window, 5 mm thick coronal and sagittal and 7 mm axial MIP reformats were then acquired. For radiation dose reduction, the following was used: automated exposure control, adjustment of mA and/or kV according to patient size. COMPARISON: None. FINDINGS: Image quality: Excellent. Lungs and pleura: No acute air space opacities. No pleural effusions or pneumothorax. Central and peripheral airways are patent and normal in caliber. Mediastinum: Heart size is normal. No pericardial effusion. No mediastinal adenopathy by size criteria. Thoracic aorta and central pulmonary arteries are normal in size. Esophagus is normal in caliber. No hiatal hernia. Bones and chest wall: No suspicious bony lesions. No vertebral body compression fractures. No axillary or supraclavicular adenopathy by size criteria. Thyroid gland is not well seen by this noncontrast technique. . Abdomen: Visualized upper abdominal solid organs and bowel loops appear normal in the absence of contrast. IMPRESSION: No pneumonia or neoplasm found. Source of persistent cough is not identified. No mediastinal or hilar adenopathy is seen. Dictated by: Manoj Lozano M.D. on 08/19/2020 at 13:53 Approved by: Manoj Lozano M.D. on 08/19/2020 at 13:54
== END ==
PROVIDERS: PCP Family Medicine; Referring Provider Family Medicine; Visit Provider Family Medicine
DX: R05 Cough (principal)
CPT/HCPCS: 71250

== ENCOUNTER → 2020-08-20 08:23 | Outpatient (CLI) | payer MEDICARE, SELFPAY ==
[2020-08-20 10:17] LABS: Cholesterol 220 mg/dL (140-199); HDL Cholesterol 72 mg/dL (40-60); LDL Cholesterol Calculated 126 mg/dL (<100); Triglycerides 108 mg/dL (35-150)
[2020-08-20 10:47] LABS: TSH w/ Reflex to FT4 0.69 uIU/mL (0.47-4.68)
== END ==
PROVIDERS: PCP Family Medicine; Referring Provider Family Medicine; Visit Provider Family Medicine
DX: E78.5 Hyperlipidemia, unspecified (principal)
CPT/HCPCS: 36415; 80061; 84443

== ENCOUNTER 2020-10-14 11:15 | Outpatient (RCR) | payer MEDICARE, SELFPAY ==
--- NOTE | 2020-09-24 12:27 | PT.OIE ---
Current Diagnoses Pain in thoracic spine (09/24/20) Muscle weakness (generalized) (09/24/20) Abnormal posture (09/24/20) Past Medical History (Last Updated 07/27/20 @ 10:32 by Kell Santiago PA-C) Back pain Cervical radiculopathy Chronic cough Depression (03/24/11) Herniated cervical disc Parkinson's disease (06/18/14) Seasonal allergies Past Surgical History (Last Reviewed 07/13/18 @ 12:05 by Khushboo Jenkins DO) S/P cervical spinal fusion Status post lumbar spinal fusion Visit Care Team Role Provider Type Khushboo Jenkins DO Attending Provider Physician Family Provider Primary Care Provider Referring Provider Specialty: [facility] Practice Address: [address] [place] [address], [address], [facility] Email: [email or web address] Physical Therapy Initial Evaluation PT-OP-A Visit Information Start: 09/17/20 18:56 Freq: Status: Active Protocol: Document 09/24/20 08:17 LRN (Rec: 09/24/20 11:16 LRN [id number]) Out-Patient Physical Therapy Visit Information Visit Information Visit Type Initial Evaluation Visit Start Time 08:17 Visit Stop Time 09:08 Total Visit Minutes 51 Visit Number 1 Evaluation Information Evaluation Date 09/24/20 Precautions Precautions C4-C5 and possibly other locations of neck fusion 3 lower back surgeries for discectomy. Parkinson's PT-OP-B Current Condition Start: 09/17/20 18:56 Freq: Status: Active Protocol: Document 09/24/20 08:17 LRN (Rec: 09/24/20 11:16 LRN [id number]) Current Condition History of Current Condition Onset Date 6 months ago Current Complaints Constant mid>upper thoracic region pain. History of Current Condition Pt has had pain for ~ 5 yrs that has worsened in the past 6 months. Has upper back constant burn, searing pain. Denies sharp jabbing pain. Neck doesn't hurt, but wears a collar around neck because it takes the weight of the head off the neck, relieving the back pain. Wears neck collar when she feels she needs it, sometimes all day, sometimes an hour. Wears driving and when on computer. Spouse carries groceries. She carries laundry and it causes back irritation. Does self traction of the neck ( towel roll behind the neck). Prior Treatments and Tests X-rays 07/27/20: DDD C. fusion of C4-C5, in 1992. Per pt intake form she reports 3 disc fusion. She states she had physical therapy before surgery. Back surgery 1989, 1992, 2002 for discectomy of lower back, at [facility] (Dr. Mikey Chin). Had therapy before the surgeries, but it made things worse. Does the exercises on occasion. Treatment Goals Patient/Caregiver Goals Pt goal is to avoid surgery, stretch out discs and back, take away the pain. Personal Factors Other Personal Factors That May Effect Parkinson's, fusion C5, C6 Therapy/Recovery PT-OP-C Subjective Start: 09/17/20 18:56 Freq: Status: Active Protocol: Document 09/24/20 08:17 LRN (Rec: 09/24/20 11:16 LRN [id number]) Patient Questionnaires Quick Dash- Upper Extremity Quick Dash UE Score 36.36 Quick Dash UE Impairment 20 to 39% Impaired (Score 20- 39) OP-PT Pain Assessment Pain Assessment Grid Paper Pain Assessment Grid Completed Yes Location Neck Pain Location Details Posterior lower neck to upper shoulders Intensity 6 Scale Used Numeric (0 - 10) Description Burning Frequency Intermittent Other Pain Aggravating Factors Neck collar. Pain Alleviating Factors Heat T/S Pain Location Details Mid back is the center, also entire upper back/posterior shoulders Intensity 6 Scale Used Numeric (0 - 10) Description Burning Frequency Constant Pain Alleviating Factors Heat,Medication Other Pain Alleviating Factors Neck collar. Comments Pain Comments Med - IBP, 800 mg 3x/day, for years. PT-OP-H Neuro Start: 09/17/20 18:56 Freq: Status: Active Protocol: Document 09/24/20 08:17 LRN (Rec: 09/24/20 11:16 LRN [id number]) Sensation Evaluation Gross Sensation Gross Sensation Left UE Impaired PT-OP-J Posture/Palpation/Skin Start: 09/17/20 18:56 Freq: Status: Active Protocol: Document 09/24/20 08:17 LRN (Rec: 09/24/20 11:16 LRN [id number]) Posture Evaluation Position Standing Head/C-Spine Posture Forward Head Shoulder Posture (L) Rounded,(R) Rounded,(L) Forward,(R) Forward Scapula Posture (R) Protracted,(L) Retracted,( R) Rotated Down,(L) Winged Arm Posture (L) Internally Rotated,(R) Internally Rotated Knee Posture (L) Genu Valgus,(R) Genu Valgus Palpation Assessment Location T/S Palpation Location Upper>Mid thoracic region Palpation Details R Rhomboids & Paraspinals are atrophied. Pain is not palpable in muscles. PA glide of T/S and pressure at facet joints, reproduces her burning pain with greatest area of pain at C7-T1, T1-T2. PT-OP-K Range of Motion Start: 09/17/20 18:56 Freq: Status: Active Protocol: Document 09/24/20 08:17 LRN (Rec: 09/24/20 11:16 LRN [id number]) Cervical Spine Range of Motion Cervical Spine Active Degrees Testing Position Sitting Flexion 33 Extension 25 Rotation Left 65 Rotation Right 65 Lateral Flexion Left 27 Lateral Flexion Right 24 ROM Limitations Soft Tissue Tightness Shoulder Goniometric Range of Motion Shoulder Right Active Shoulder ROM WFL No Testing Position Sitting Flexion 131 Abduction 105 Left Active Shoulder ROM WFL No Testing Position Sitting Flexion 137 Abduction 110 PT-OP-M Strength Start: 09/17/20 18:56 Freq: Status: Active Protocol: Document 09/24/20 08:17 LRN (Rec: 09/24/20 11:16 LRN [id number]) Cervical Spine Strength Cervical Spine Manual Muscle Testing Comments Generally 3/5 with pt able to move against gravity for short periods with transfers. Shoulder Strength Shoulder Manual Muscle Testing Right Comments Generally 5/5. Left Adduction 4- Good- External Rotation 4- Good- Internal Rotation 4- Good- Comments Generally 5/5 except as indicated above. PT-OP-Q Treatments Start: 09/17/20 18:56 Freq: Status: Active Protocol: Document 09/24/20 08:17 LRN (Rec: 09/24/20 11:16 LRN [id number]) Self-Care/Home Management Treatment Education Other Education Discussed results of evaluation, goals, plan of care, with pt agreeable. Activities Self-Care/Home Management Activities Pt I/S in supine chin tuck with gentle scapular pinches for HEP. PT-OP-T Assessment and Plan Start: 09/17/20 18:56 Freq: Status: Active Protocol: Document 09/24/20 08:17 LRN (Rec: 09/24/20 11:16 LRN [id number]) Physical Therapy Assessment Rehab Potential Rehabilitation Potential Excellent Evaluation Complexity Number of Personal Factors/Comorbidities 0 Impairments Impairments Activity Tolerance Goals Four Impairment Poor posture Short Term Goal (STG) Pt will be educated in strategies to improve posture of head on shoulder and upper back(dowagers hump) via improved postural awareness and external factors. STG Duration 10/08/20 Care Home Goal (LTG) Pt will demonstrate improved head on shoulders posturing. LTG Duration 12/23/20 Three Impairment Weakness of neck requiring use of cervical collar for pain management Short Term Goal (STG) Pt will be educated in isometric cervical strengthening ex's for HEP. STG Duration 10/08/20 Care Home Goal (LTG) Pt will be able to drive for distances in town and sit without her her cervical collar to use computer for short periods of 15-30' or less without onset of burning pain. LTG Duration 12/23/20 Two Impairment Constant burning pain in thoracic region. Short Term Goal (STG) Pt pain will be intermittent in nature. STG Duration 10/22/20 Inflated Pad Buffer Goal (LTG) Decrease pain intensity 50% with intermittent onset with use of UE's LTG Duration 12/23/20 One Impairment Pt lacks appropriate self care HEP. Short Term Goal (STG) Pt will be independent in a gentle HEP of thoracic and scapular ROM exercises. STG Duration 10/15/20 Inflated Pad Buffer Goal (LTG) Pt will be independent in a self care progressive HEP. LTG Duration 12/23/20 Assessment Summary Assessment Pt is a 70 yo female who presents with chronic upper thoracic pain radiating to neck/shoulders with arm use, weakness of neck ms & shoulders/scapular stabilizers , and decreased thoracic mobility due to pain. Pt fusion at C4-C5 will hinder her progress due to mobility limitations/restrictions at the neck resulting in increased strain at C7-T1, where most of her palpable pain appears to emanate from. The pt has general soreness with PA of the thoracic spine and general stiffness of spine . Pt will benefit from PT, over and extended period of time for her rehabilitation to promote improved painfree thoracic and neck mobility, improved thoracic region/neck/ shoulder strength and stability and improved functional ability. Physical Therapy Plan Frequency and Duration Frequency of Treatment 2x/Week Plan of Care Start Date 09/24/20 Plan of Care End Date 12/23/20 Therapeutic Interventions Therapeutic Interventions Aquatic Therapy,Home Exercise Program,Joint Mobilizations, Manual Therapy,Neuromuscular Re-education,Patient/Caregiver Education,Self-Care/Home Management,Soft Tissue Mobilization,Taping, Therapeutic Activities, Therapeutic Exercises Modalities Cold Pack/Ice Massage,Electric Stimulation,Hot Packs Next Visit Focus/Plan Next Note Type Treatment Note Next Visit Plan Review HEP: supine scapular pinches with chin tucked. GENTLE UE shoulder ROM to promote GENTLE thoracic ext, tio in upper thoracic spine ( sidelie, supine, sit: thoracic rotation), Pec stretches. Standing with toes on incline (recommend Earth shoes). Isometric neck strengthening. End with ice/IFES in upper thoracic spine, (reassess for contraindications to ESTIM - metal stays/rods, etc)
--- NOTE | 2020-09-24 12:28 | PT.OPPOC ---
Physical, Occupational & Speech Therapy [facility] Current Diagnoses Pain in thoracic spine (09/24/20) Muscle weakness (generalized) (09/24/20) Abnormal posture (09/24/20) Visit Care Team Role Provider Type Khushboo Jenkins DO Attending Provider Physician Family Provider Primary Care Provider Referring Provider Specialty: Family Practice Address: [address] [place] [address], [address], [facility] Email: [email or web address] Plan Of Care PT-OP-T Assessment and Plan Start: 09/17/20 18:56 Freq: Status: Active Protocol: Document 09/24/20 08:17 LRN (Rec: 09/24/20 11:16 LRN [id number]) Physical Therapy Assessment Rehab Potential Rehabilitation Potential Excellent Evaluation Complexity Number of Personal Factors/Comorbidities 0 Impairments Impairments Activity Tolerance Goals Four Impairment Poor posture Short Term Goal (STG) Pt will be educated in strategies to improve posture of head on shoulder and upper back(dowagers hump) via improved postural awareness and external factors. STG Duration 10/08/20 Area Plant Manager Goal (LTG) Pt will demonstrate improved head on shoulders posturing. LTG Duration 12/23/20 Three Impairment Weakness of neck requiring use of cervical collar for pain management Short Term Goal (STG) Pt will be educated in isometric cervical strengthening ex's for HEP. STG Duration 10/08/20 Detention Goal (LTG) Pt will be able to drive for distances in town and sit without her her cervical collar to use computer for short periods of 15-30' or less without onset of burning pain. LTG Duration 12/23/20 Two Impairment Constant burning pain in thoracic region. Short Term Goal (STG) Pt pain will be intermittent in nature. STG Duration 10/22/20 Detention Goal (LTG) Decrease pain intensity 50% with intermittent onset with use of UE's LTG Duration 12/23/20 One Impairment Pt lacks appropriate self care HEP. Short Term Goal (STG) Pt will be independent in a gentle HEP of thoracic and scapular ROM exercises. STG Duration 10/15/20 Area Plant Manager Goal (LTG) Pt will be independent in a self care progressive HEP. LTG Duration 12/23/20 Assessment Summary Assessment Pt is a 70 yo female who presents with chronic upper thoracic pain radiating to neck/shoulders with arm use, weakness of neck ms & shoulders/scapular stabilizers , and decreased thoracic mobility due to pain. Pt fusion at C4-C5 will hinder her progress due to mobility limitations/restrictions at the neck resulting in increased strain at C7-T1, where most of her palpable pain appears to emanate from. The pt has general soreness with PA of the thoracic spine and general stiffness of spine . Pt will benefit from PT, over and extended period of time for her rehabilitation to promote improved painfree thoracic and neck mobility, improved thoracic region/neck/ shoulder strength and stability and improved functional ability. Physical Therapy Plan Frequency and Duration Frequency of Treatment 2x/Week Plan of Care Start Date 09/24/20 Plan of Care End Date 12/23/20 Therapeutic Interventions Therapeutic Interventions Aquatic Therapy,Home Exercise Program,Joint Mobilizations, Manual Therapy,Neuromuscular Re-education,Patient/Caregiver Education,Self-Care/Home Management,Soft Tissue Mobilization,Taping, Therapeutic Activities, Therapeutic Exercises Modalities Cold Pack/Ice Massage,Electric Stimulation,Hot Packs Next Visit Focus/Plan Next Note Type Treatment Note Next Visit Plan Review HEP: supine scapular pinches with chin tucked. GENTLE UE shoulder ROM to promote GENTLE thoracic ext, tio in upper thoracic spine ( sidelie, supine, sit: thoracic rotation), Pec stretches. Standing with toes on incline (recommend Earth shoes). Isometric neck strengthening. End with ice/IFES in upper thoracic spine, (reassess for contraindications to ESTIM - metal stays/rods, etc) Plan of Care Dates Plan of Care Start Date 09/24/20 Plan of Care End Date 12/23/20 Electronically Signed by: Deya Navarro, PT 09/24/20 [id number] Please Sign and Return: I have reviewed this Plan of Care and certify that the skilled therapy services above are required to meet the patient?s needs. Physician Signature Date Printed Name and Credentials Clinical Instructor Signature Printed Name and Credentials
--- NOTE | 2020-09-24 12:30 | PT.OIE ---
Current Diagnoses Pain in thoracic spine (09/24/20) Muscle weakness (generalized) (09/24/20) Abnormal posture (09/24/20) Past Medical History (Last Updated 07/27/20 @ 10:32 by Kell Santiago PA-C) Back pain Cervical radiculopathy Chronic cough Depression (03/24/11) Herniated cervical disc Parkinson's disease (06/18/14) Seasonal allergies Past Surgical History (Last Reviewed 07/13/18 @ 12:05 by Khushboo Jenkins DO) S/P cervical spinal fusion Status post lumbar spinal fusion Visit Care Team Role Provider Type Khushboo Jenkins DO Attending Provider Physician Family Provider Primary Care Provider Referring Provider Specialty: [facility] Practice Address: [address] [place] [address], [address], [facility] Email: [email or web address] Physical Therapy Initial Evaluation PT-OP-A Visit Information Start: 09/17/20 18:56 Freq: Status: Active Protocol: Document 09/24/20 08:17 LRN (Rec: 09/24/20 11:16 LRN [id number]) Out-Patient Physical Therapy Visit Information Visit Information Visit Type Initial Evaluation Visit Start Time 08:17 Visit Stop Time 09:08 Total Visit Minutes 51 Visit Number 1 Evaluation Information Evaluation Date 09/24/20 Precautions Precautions C4-C5 and possibly other locations of neck fusion 3 lower back surgeries for discectomy. Parkinson's PT-OP-B Current Condition Start: 09/17/20 18:56 Freq: Status: Active Protocol: Document 09/24/20 08:17 LRN (Rec: 09/24/20 11:16 LRN [id number]) Current Condition History of Current Condition Onset Date 6 months ago Current Complaints Constant mid>upper thoracic region pain. History of Current Condition Pt has had pain for ~ 5 yrs that has worsened in the past 6 months. Has upper back constant burn, searing pain. Denies sharp jabbing pain. Neck doesn't hurt, but wears a collar around neck because it takes the weight of the head off the neck, relieving the back pain. Wears neck collar when she feels she needs it, sometimes all day, sometimes an hour. Wears driving and when on computer. Spouse carries groceries. She carries laundry and it causes back irritation. Does self traction of the neck ( towel roll behind the neck). Prior Treatments and Tests X-rays 07/27/20: DDD C. fusion of C4-C5, in 1992. Per pt intake form she reports 3 disc fusion. She states she had physical therapy before surgery. Back surgery 1989, 1992, 2002 for discectomy of lower back, at [facility] (Dr. Mikey Chin). Had therapy before the surgeries, but it made things worse. Does the exercises on occasion. Treatment Goals Patient/Caregiver Goals Pt goal is to avoid surgery, stretch out discs and back, take away the pain. Personal Factors Other Personal Factors That May Effect Parkinson's, fusion C5, C6 Therapy/Recovery PT-OP-C Subjective Start: 09/17/20 18:56 Freq: Status: Active Protocol: Document 09/24/20 08:17 LRN (Rec: 09/24/20 11:16 LRN [id number]) Patient Questionnaires Quick Dash- Upper Extremity Quick Dash UE Score 36.36 Quick Dash UE Impairment 20 to 39% Impaired (Score 20- 39) OP-PT Pain Assessment Pain Assessment Grid Paper Pain Assessment Grid Completed Yes Location Neck Pain Location Details Posterior lower neck to upper shoulders Intensity 6 Scale Used Numeric (0 - 10) Description Burning Frequency Intermittent Other Pain Aggravating Factors Neck collar. Pain Alleviating Factors Heat T/S Pain Location Details Mid back is the center, also entire upper back/posterior shoulders Intensity 6 Scale Used Numeric (0 - 10) Description Burning Frequency Constant Pain Alleviating Factors Heat,Medication Other Pain Alleviating Factors Neck collar. Comments Pain Comments Med - IBP, 800 mg 3x/day, for years. PT-OP-H Neuro Start: 09/17/20 18:56 Freq: Status: Active Protocol: Document 09/24/20 08:17 LRN (Rec: 09/24/20 11:16 LRN [id number]) Sensation Evaluation Gross Sensation Gross Sensation Left UE Impaired PT-OP-J Posture/Palpation/Skin Start: 09/17/20 18:56 Freq: Status: Active Protocol: Document 09/24/20 08:17 LRN (Rec: 09/24/20 11:16 LRN [id number]) Posture Evaluation Position Standing Head/C-Spine Posture Forward Head Shoulder Posture (L) Rounded,(R) Rounded,(L) Forward,(R) Forward Scapula Posture (R) Protracted,(L) Retracted,( R) Rotated Down,(L) Winged Arm Posture (L) Internally Rotated,(R) Internally Rotated Knee Posture (L) Genu Valgus,(R) Genu Valgus Palpation Assessment Location T/S Palpation Location Upper>Mid thoracic region Palpation Details R Rhomboids & Paraspinals are atrophied. Pain is not palpable in muscles. PA glide of T/S and pressure at facet joints, reproduces her burning pain with greatest area of pain at C7-T1, T1-T2. PT-OP-K Range of Motion Start: 09/17/20 18:56 Freq: Status: Active Protocol: Document 09/24/20 08:17 LRN (Rec: 09/24/20 11:16 LRN [id number]) Cervical Spine Range of Motion Cervical Spine Active Degrees Testing Position Sitting Flexion 33 Extension 25 Rotation Left 65 Rotation Right 65 Lateral Flexion Left 27 Lateral Flexion Right 24 ROM Limitations Soft Tissue Tightness Shoulder Goniometric Range of Motion Shoulder Right Active Shoulder ROM WFL No Testing Position Sitting Flexion 131 Abduction 105 Left Active Shoulder ROM WFL No Testing Position Sitting Flexion 137 Abduction 110 PT-OP-M Strength Start: 09/17/20 18:56 Freq: Status: Active Protocol: Document 09/24/20 08:17 LRN (Rec: 09/24/20 11:16 LRN [id number]) Cervical Spine Strength Cervical Spine Manual Muscle Testing Comments Generally 3/5 with pt able to move against gravity for short periods with transfers. Shoulder Strength Shoulder Manual Muscle Testing Right Comments Generally 5/5. Left Adduction 4- Good- External Rotation 4- Good- Internal Rotation 4- Good- Comments Generally 5/5 except as indicated above. PT-OP-Q Treatments Start: 09/17/20 18:56 Freq: Status: Active Protocol: Document 09/24/20 08:17 LRN (Rec: 09/24/20 11:16 LRN [id number]) Self-Care/Home Management Treatment Education Other Education Discussed results of evaluation, goals, plan of care, with pt agreeable. Activities Self-Care/Home Management Activities Pt I/S in supine chin tuck with gentle scapular pinches for HEP. PT-OP-T Assessment and Plan Start: 09/17/20 18:56 Freq: Status: Active Protocol: Document 09/24/20 08:17 LRN (Rec: 09/24/20 11:16 LRN [id number]) Physical Therapy Assessment Rehab Potential Rehabilitation Potential Good Evaluation Complexity Number of Personal Factors/Comorbidities 1-2 Number of Body Systems Impaired 4 or More Clinical Presentation at Evaluation Evolving Impairments Impairments Activity Tolerance,Pain, Posture,ROM,Soft Tissue Mobility,Strength Goals Four Impairment Poor posture Short Term Goal (STG) Pt will be educated in strategies to improve posture of head on shoulder and upper back(dowagers hump) via improved postural awareness and external factors. STG Duration 10/08/20 Fpc Goal (LTG) Pt will demonstrate improved head on shoulders posturing. LTG Duration 12/23/20 Three Impairment Weakness of neck requiring use of cervical collar for pain management Short Term Goal (STG) Pt will be educated in isometric cervical strengthening ex's for HEP. STG Duration 10/08/20 Musical Instrument Mechanic Goal (LTG) Pt will be able to drive for distances in town and sit without her her cervical collar to use computer for short periods of 15-30' or less without onset of burning pain. LTG Duration 12/23/20 Two Impairment Constant burning pain in thoracic region. Short Term Goal (STG) Pt pain will be intermittent in nature. STG Duration 10/22/20 Musical Instrument Mechanic Goal (LTG) Decrease pain intensity 50% with intermittent onset with use of UE's LTG Duration 12/23/20 One Impairment Pt lacks appropriate self care HEP. Short Term Goal (STG) Pt will be independent in a gentle HEP of thoracic and scapular ROM exercises. STG Duration 10/15/20 Musical Instrument Mechanic Goal (LTG) Pt will be independent in a self care progressive HEP. LTG Duration 12/23/20 Assessment Summary Assessment Pt is a 70 yo female who presents with chronic upper thoracic pain radiating to neck/shoulders with arm use, weakness of neck ms & shoulders/scapular stabilizers , and decreased thoracic mobility due to pain. Pt fusion at C4-C5 will hinder her progress due to mobility limitations/restrictions at the neck resulting in increased strain at C7-T1, where most of her palpable pain appears to emanate from. The pt has general soreness with PA of the thoracic spine and general stiffness of spine . Pt will benefit from PT, over and extended period of time for her rehabilitation to promote improved painfree thoracic and neck mobility, improved thoracic region/neck/ shoulder strength and stability and improved functional ability. Physical Therapy Plan Frequency and Duration Frequency of Treatment 2x/Week Plan of Care Start Date 09/24/20 Plan of Care End Date 12/23/20 Therapeutic Interventions Therapeutic Interventions Aquatic Therapy,Home Exercise Program,Joint Mobilizations, Manual Therapy,Neuromuscular Re-education,Patient/Caregiver Education,Self-Care/Home Management,Soft Tissue Mobilization,Taping, Therapeutic Activities, Therapeutic Exercises Modalities Cold Pack/Ice Massage,Electric Stimulation,Hot Packs Next Visit Focus/Plan Next Note Type Treatment Note Next Visit Plan Review HEP: supine scapular pinches with chin tucked. GENTLE UE shoulder ROM to promote GENTLE thoracic ext, tio in upper thoracic spine ( sidelie, supine, sit: thoracic rotation), Pec stretches. Standing with toes on incline (recommend Earth shoes). Isometric neck strengthening. End with ice/IFES in upper thoracic spine, (reassess for contraindications to ESTIM - metal stays/rods, etc)
--- NOTE | 2020-09-24 12:31 | PT.OPPOC ---
Physical, Occupational & Speech Therapy At [facility] Current Diagnoses Pain in thoracic spine (09/24/20) Muscle weakness (generalized) (09/24/20) Abnormal posture (09/24/20) Visit Care Team Role Provider Type Khushboo Jenkins DO Attending Provider Physician Family Provider Primary Care Provider Referring Provider Specialty: Family Practice Address: [address] [place] [address], [address], [facility] Email: [email or web address] Plan Of Care PT-OP-T Assessment and Plan Start: 09/17/20 18:56 Freq: Status: Active Protocol: Document 09/24/20 08:17 LRN (Rec: 09/24/20 11:16 LRN [id number]) Physical Therapy Assessment Rehab Potential Rehabilitation Potential Good Evaluation Complexity Number of Personal Factors/Comorbidities 1-2 Number of Body Systems Impaired 4 or More Clinical Presentation at Evaluation Evolving Impairments Impairments Activity Tolerance,Pain, Posture,ROM,Soft Tissue Mobility,Strength Goals Four Impairment Poor posture Short Term Goal (STG) Pt will be educated in strategies to improve posture of head on shoulder and upper back(dowagers hump) via improved postural awareness and external factors. STG Duration 10/08/20 Frame Straightener Goal (LTG) Pt will demonstrate improved head on shoulders posturing. LTG Duration 12/23/20 Three Impairment Weakness of neck requiring use of cervical collar for pain management Short Term Goal (STG) Pt will be educated in isometric cervical strengthening ex's for HEP. STG Duration 10/08/20 Frame Straightener Goal (LTG) Pt will be able to drive for distances in town and sit without her her cervical collar to use computer for short periods of 15-30' or less without onset of burning pain. LTG Duration 12/23/20 Two Impairment Constant burning pain in thoracic region. Short Term Goal (STG) Pt pain will be intermittent in nature. STG Duration 10/22/20 Usp Goal (LTG) Decrease pain intensity 50% with intermittent onset with use of UE's LTG Duration 12/23/20 One Impairment Pt lacks appropriate self care HEP. Short Term Goal (STG) Pt will be independent in a gentle HEP of thoracic and scapular ROM exercises. STG Duration 10/15/20 Usp Goal (LTG) Pt will be independent in a self care progressive HEP. LTG Duration 12/23/20 Assessment Summary Assessment Pt is a 70 yo female who presents with chronic upper thoracic pain radiating to neck/shoulders with arm use, weakness of neck ms & shoulders/scapular stabilizers , and decreased thoracic mobility due to pain. Pt fusion at C4-C5 will hinder her progress due to mobility limitations/restrictions at the neck resulting in increased strain at C7-T1, where most of her palpable pain appears to emanate from. The pt has general soreness with PA of the thoracic spine and general stiffness of spine . Pt will benefit from PT, over and extended period of time for her rehabilitation to promote improved painfree thoracic and neck mobility, improved thoracic region/neck/ shoulder strength and stability and improved functional ability. Physical Therapy Plan Frequency and Duration Frequency of Treatment 2x/Week Plan of Care Start Date 09/24/20 Plan of Care End Date 12/23/20 Therapeutic Interventions Therapeutic Interventions Aquatic Therapy,Home Exercise Program,Joint Mobilizations, Manual Therapy,Neuromuscular Re-education,Patient/Caregiver Education,Self-Care/Home Management,Soft Tissue Mobilization,Taping, Therapeutic Activities, Therapeutic Exercises Modalities Cold Pack/Ice Massage,Electric Stimulation,Hot Packs Next Visit Focus/Plan Next Note Type Treatment Note Next Visit Plan Review HEP: supine scapular pinches with chin tucked. GENTLE UE shoulder ROM to promote GENTLE thoracic ext, tio in upper thoracic spine ( sidelie, supine, sit: thoracic rotation), Pec stretches. Standing with toes on incline (recommend Earth shoes). Isometric neck strengthening. End with ice/IFES in upper thoracic spine, (reassess for contraindications to ESTIM - metal stays/rods, etc) Plan of Care Dates Plan of Care Start Date 09/24/20 Plan of Care End Date 12/23/20 Electronically Signed by: Deya Navarro, PT 09/24/20 [id number] Please Sign and Return: I have reviewed this Plan of Care and certify that the skilled therapy services above are required to meet the patient?s needs. Physician Signature Date Printed Name and Credentials Clinical Instructor Signature Printed Name and Credentials
--- NOTE | 2020-09-28 12:17 | PT.OTN ---
Current Diagnoses Pain in thoracic spine (09/28/20) Muscle weakness (generalized) (09/28/20) Abnormal posture (09/28/20) Physical Therapy Treatment Note PT-OP-A Visit Information Start: 09/17/20 18:56 Freq: Status: Active Protocol: Document 09/28/20 11:17 LRN (Rec: 09/28/20 12:16 LRN [id number]) Out-Patient Physical Therapy Visit Information Visit Information Visit Type Treatment Note Visit Start Time 11:18 Visit Stop Time 12:06 Total Visit Minutes 48 Visit Number 2 Evaluation Information Evaluation Date 09/24/20 Precautions Precautions C4-C5 and possibly other locations of neck fusion 3 lower back surgeries for discectomy. Parkinson's PT-OP-B Current Condition Start: 09/17/20 18:56 Freq: Status: Active Protocol: Document 09/24/20 08:17 LRN (Rec: 09/24/20 11:16 LRN [id number]) Current Condition History of Current Condition Onset Date 6 months ago Current Complaints Constant mid>upper thoracic region pain. History of Current Condition Pt has had pain for ~ 5 yrs that has worsened in the past 6 months. Has upper back constant burn, searing pain. Denies sharp jabbing pain. Neck doesn't hurt, but wears a collar around neck because it takes the weight of the head off the neck, relieving the back pain. Wears neck collar when she feels she needs it, sometimes all day, sometimes an hour. Wears driving and when on computer. Spouse carries groceries. She carries laundry and it causes back irritation. Does self traction of the neck ( towel roll behind the neck). Prior Treatments and Tests X-rays 07/27/20: DDD C. fusion of C4-C5, in 1992. Per pt intake form she reports 3 disc fusion. She states she had physical therapy before surgery. Back surgery 1989, 1992, 2002 for discectomy of lower back, at [facility] (Dr. Mikey Chin). Had therapy before the surgeries, but it made things worse. Does the exercises on occasion. Treatment Goals Patient/Caregiver Goals Pt goal is to avoid surgery, stretch out discs and back, take away the pain. Personal Factors Other Personal Factors That May Effect Parkinson's, fusion C5, C6 Therapy/Recovery PT-OP-C Subjective Start: 09/17/20 18:56 Freq: Status: Active Protocol: Document 09/28/20 11:17 LRN (Rec: 09/28/20 12:16 LRN [id number]) OP-PT Subjective Patient Comments Patient Comments States her head tremor may be part of the head/neck problem because it tremors all the time. Today states, most of the pain goes down the R shoulder blade and the pain in the middle of the back seems less. Fusion only in the neck, used a donor bone, in the back it was a discectomy (6 lumbar vertebrae) at L4-L5, L5-L6, and L6-S1. PT-OP-H Neuro Start: 09/17/20 18:56 Freq: Status: Active Protocol: Document 09/24/20 08:17 LRN (Rec: 09/24/20 11:16 LRN [id number]) Sensation Evaluation Gross Sensation Gross Sensation Left UE Impaired PT-OP-J Posture/Palpation/Skin Start: 09/17/20 18:56 Freq: Status: Active Protocol: Document 09/24/20 08:17 LRN (Rec: 09/24/20 11:16 LRN [id number]) Posture Evaluation Position Standing Head/C-Spine Posture Forward Head Shoulder Posture (L) Rounded,(R) Rounded,(L) Forward,(R) Forward Scapula Posture (R) Protracted,(L) Retracted,( R) Rotated Down,(L) Winged Arm Posture (L) Internally Rotated,(R) Internally Rotated Knee Posture (L) Genu Valgus,(R) Genu Valgus Palpation Assessment Location T/S Palpation Location Upper>Mid thoracic region Palpation Details R Rhomboids & Paraspinals are atrophied. Pain is not palpable in muscles. PA glide of T/S and pressure at facet joints, reproduces her burning pain with greatest area of pain at C7-T1, T1-T2. PT-OP-K Range of Motion Start: 09/17/20 18:56 Freq: Status: Active Protocol: Document 09/24/20 08:17 LRN (Rec: 09/24/20 11:16 LRN [id number]) Cervical Spine Range of Motion Cervical Spine Active Degrees Testing Position Sitting Flexion 33 Extension 25 Rotation Left 65 Rotation Right 65 Lateral Flexion Left 27 Lateral Flexion Right 24 ROM Limitations Soft Tissue Tightness Shoulder Goniometric Range of Motion Shoulder Right Active Shoulder ROM WFL No Testing Position Sitting Flexion 131 Abduction 105 Left Active Shoulder ROM WFL No Testing Position Sitting Flexion 137 Abduction 110 PT-OP-M Strength Start: 09/17/20 18:56 Freq: Status: Active Protocol: Document 09/24/20 08:17 LRN (Rec: 09/24/20 11:16 LRN [id number]) Cervical Spine Strength Cervical Spine Manual Muscle Testing Comments Generally 3/5 with pt able to move against gravity for short periods with transfers. Shoulder Strength Shoulder Manual Muscle Testing Right Comments Generally 5/5. Left Adduction 4- Good- External Rotation 4- Good- Internal Rotation 4- Good- Comments Generally 5/5 except as indicated above. PT-OP-Q Treatments Start: 09/17/20 18:56 Freq: Status: Active Protocol: Document 09/28/20 11:17 LRN (Rec: 09/28/20 12:16 LRN [id number]) Therapeutic Exercises Sidelying Exercises Upper Trunk Rot Sidelying Exercise Name Arms fwd, Rotation of upper trunk, head follows hand Side bilateral Reps/Minutes 5x each, 5 Hold Comments Extra time taken for training, phys/v cuing needed. Sitting Exercises Cervical Jordyn Sitting Exercise Name Ext & SB Side bilateral Resistance Manual - self resist Reps/Minutes 5 hold x 5 Comments Extra time for training Trunk rot Sitting Exercise Name Trunk Rot stretch Side bilateral Reps/Minutes 10x 3 sec hold Comments Extra time for training Scapular Pinches w/chin tuck Sitting Exercise Name Scapular Pinch with chin tuck Side bilateral Reps/Minutes 5 hold x 10 Comments Extra time for training, verbal cuing needed. Shoulder rolls Sitting Exercise Name Shoulder rolls fwd/backward Side bilateral Reps/Minutes 10x each way Self-Care/Home Management Treatment Education Patient Education Home Exercise Program Activities Self-Care/Home Management Activities Issued & reviewed HEP: AROM upper T/S rotation in sidelie & sitting; Cervical Isometrics for Ext & SB. PT-OP-R Modalities Start: 09/17/20 18:56 Freq: Status: Active Protocol: Document 09/28/20 11:17 LRN (Rec: 09/28/20 12:16 LRN [id number]) Electric Stimulation Electric Stimulation Interferential Current (IFC) Body Location Pads: UT/Mid Intrascapular [ C7-T1] Duration (Minutes) 12 Intensity 12 Target/Sweep Sweep Patient Position Hooklying Combined With Heat/Cold Hot Pack Hot Pack/Cold Pack Treatment Hot Pack Location Upper/Lower back Patient Position Hooklying Treatment Duration (minutes) 12 Patient Tolerance Good Comments Bolster under knees PT-OP-T Assessment and Plan Start: 09/17/20 18:56 Freq: Status: Active Protocol: Document 09/28/20 11:17 LRN (Rec: 09/28/20 12:16 LRN [id number]) Physical Therapy Assessment Goals Four Impairment Poor posture Short Term Goal (STG) Pt will be educated in strategies to improve posture of head on shoulder and upper back(dowagers hump) via improved postural awareness and external factors. STG Duration 10/08/20 [facility] Goal (LTG) Pt will demonstrate improved head on shoulders posturing. LTG Duration 12/23/20 Three Impairment Weakness of neck requiring use of cervical collar for pain management Short Term Goal (STG) Pt will be educated in isometric cervical strengthening ex's for HEP. (09/28/20: Added C/S ext & SB jordyn strengthening ex to HEP) STG Duration 10/08/20 (09/28/20: Progressing ) Deep Submergence Vehicle Crewmember Goal (LTG) Pt will be able to drive for distances in town and sit without her her cervical collar to use computer for short periods of 15-30' or less without onset of burning pain. LTG Duration 12/23/20 Two Impairment Constant burning pain in thoracic region. Short Term Goal (STG) Pt pain will be intermittent in nature. STG Duration 10/22/20 [facility] Goal (LTG) Decrease pain intensity 50% with intermittent onset with use of UE's LTG Duration 12/23/20 One Impairment Pt lacks appropriate self care HEP. Short Term Goal (STG) Pt will be independent in a gentle HEP of thoracic and scapular ROM exercises. (09/28/20: Added T/S ROM ex to HEP) STG Duration 10/15/20 (09/28/20: Progressed ) Deep Submergence Vehicle Crewmember Goal (LTG) Pt will be independent in a self care progressive HEP. LTG Duration 12/23/20 Progress Towards Goals Progress Comments Progressed self care HEP. Added some C/S jordyn strengthening & T/S ROM ex to HEP. Assessment Summary Assessment Pt is a 70 yo female with chronic upper T/S pain radiating to neck/shoulders with arm use, weakness of neck , shoulders/scapular stabilizers, and decreased T/S mobility. No problems noted with review of contraindications to ESTIM ( metal stays/rods). Pt able to perform exercises without pain. Physical Therapy Plan Frequency and Duration Frequency of Treatment 2x/Week Plan of Care Start Date 09/24/20 Plan of Care End Date 12/23/20 Next Visit Focus/Plan Next Note Type Treatment Note Next Visit Plan Review HEP issued and assess response to E-Stim. Add GENTLE UE shoulder ROM in supine to promote GENTLE thoracic ext, tio in upper thoracic spine, and add scapular ROM ex's. Add Isometric cerivcal neck flexors and rotation strengthening. Start Pec stretches. Try pt standing with toes on incline ( recommend Earth shoes if appropriate). End with ice or MH/IFES in upper thoracic spine
--- NOTE | 2020-09-30 12:15 | PT.OTN ---
Current Diagnoses Pain in thoracic spine (09/30/20) Muscle weakness (generalized) (09/30/20) Abnormal posture (09/30/20) Physical Therapy Treatment Note PT-OP-A Visit Information Start: 09/17/20 18:56 Freq: Status: Active Protocol: Document 09/30/20 10:28 LRN (Rec: 09/30/20 11:18 LRN [id number]) Out-Patient Physical Therapy Visit Information Visit Information Visit Type Treatment Note Visit Start Time 10:28 Visit Stop Time 11:28 Total Visit Minutes 56 Visit Number 3 Evaluation Information Evaluation Date 09/24/20 Precautions Precautions C4-C5 and possibly other locations of neck fusion 3 lower back surgeries for discectomy. Parkinson's PT-OP-B Current Condition Start: 09/17/20 18:56 Freq: Status: Active Protocol: Document 09/24/20 08:17 LRN (Rec: 09/24/20 11:16 LRN [id number]) Current Condition History of Current Condition Onset Date 6 months ago Current Complaints Constant mid>upper thoracic region pain. History of Current Condition Pt has had pain for ~ 5 yrs that has worsened in the past 6 months. Has upper back constant burn, searing pain. Denies sharp jabbing pain. Neck doesn't hurt, but wears a collar around neck because it takes the weight of the head off the neck, relieving the back pain. Wears neck collar when she feels she needs it, sometimes all day, sometimes an hour. Wears driving and when on computer. Spouse carries groceries. She carries laundry and it causes back irritation. Does self traction of the neck ( towel roll behind the neck). Prior Treatments and Tests X-rays 07/27/20: DDD C. fusion of C4-C5, in 1992. Per pt intake form she reports 3 disc fusion. She states she had physical therapy before surgery. Back surgery 1989, 1992, 2002 for discectomy of lower back, at [facility] (Dr. Mikey Chin). Had therapy before the surgeries, but it made things worse. Does the exercises on occasion. Treatment Goals Patient/Caregiver Goals Pt goal is to avoid surgery, stretch out discs and back, take away the pain. Personal Factors Other Personal Factors That May Effect Parkinson's, fusion C5, C6 Therapy/Recovery PT-OP-C Subjective Start: 09/17/20 18:56 Freq: Status: Active Protocol: Document 09/30/20 10:28 LRN (Rec: 09/30/20 11:18 LRN [id number]) OP-PT Subjective Patient Comments Patient Comments [place] better after the last session and doesn't feel terrible, but states she went to [employer] and had to lift items into the chart, so more sore today (scapular pain goes lower). Iced 2x yesterday. She will plan on icing and walking this weekend and will do no lifting. PT-OP-H Neuro Start: 09/17/20 18:56 Freq: Status: Active Protocol: Document 09/24/20 08:17 LRN (Rec: 09/24/20 11:16 LRN [id number]) Sensation Evaluation Gross Sensation Gross Sensation Left UE Impaired PT-OP-J Posture/Palpation/Skin Start: 09/17/20 18:56 Freq: Status: Active Protocol: Document 09/24/20 08:17 LRN (Rec: 09/24/20 11:16 LRN [id number]) Posture Evaluation Position Standing Head/C-Spine Posture Forward Head Shoulder Posture (L) Rounded,(R) Rounded,(L) Forward,(R) Forward Scapula Posture (R) Protracted,(L) Retracted,( R) Rotated Down,(L) Winged Arm Posture (L) Internally Rotated,(R) Internally Rotated Knee Posture (L) Genu Valgus,(R) Genu Valgus Palpation Assessment Location T/S Palpation Location Upper>Mid thoracic region Palpation Details R Rhomboids & Paraspinals are atrophied. Pain is not palpable in muscles. PA glide of T/S and pressure at facet joints, reproduces her burning pain with greatest area of pain at C7-T1, T1-T2. PT-OP-K Range of Motion Start: 09/17/20 18:56 Freq: Status: Active Protocol: Document 09/24/20 08:17 LRN (Rec: 09/24/20 11:16 LRN [id number]) Cervical Spine Range of Motion Cervical Spine Active Degrees Testing Position Sitting Flexion 33 Extension 25 Rotation Left 65 Rotation Right 65 Lateral Flexion Left 27 Lateral Flexion Right 24 ROM Limitations Soft Tissue Tightness Shoulder Goniometric Range of Motion Shoulder Right Active Shoulder ROM WFL No Testing Position Sitting Flexion 131 Abduction 105 Left Active Shoulder ROM WFL No Testing Position Sitting Flexion 137 Abduction 110 PT-OP-M Strength Start: 09/17/20 18:56 Freq: Status: Active Protocol: Document 09/24/20 08:17 LRN (Rec: 09/24/20 11:16 LRN [id number]) Cervical Spine Strength Cervical Spine Manual Muscle Testing Comments Generally 3/5 with pt able to move against gravity for short periods with transfers. Shoulder Strength Shoulder Manual Muscle Testing Right Comments Generally 5/5. Left Adduction 4- Good- External Rotation 4- Good- Internal Rotation 4- Good- Comments Generally 5/5 except as indicated above. PT-OP-Q Treatments Start: 09/17/20 18:56 Freq: Status: Active Protocol: Document 09/30/20 10:28 LRN (Rec: 09/30/20 11:18 LRN [id number]) Therapeutic Exercises Sidelying Exercises Upper Trunk Rot Sidelying Exercise Name Arms fwd, Rotation of upper trunk, head follows hand Side bilateral Reps/Minutes 10' Comments Phys/v cuing and practice needed to stretch for proper 5 . Sitting Exercises Cervical Jordyn Sitting Exercise Name Ext & SB Side bilateral Resistance Manual - self resist & use of ball Reps/Minutes 5' Comments Extra time for training with use of ball Trunk rot Sitting Exercise Name Trunk Rot stretch Side bilateral Reps/Minutes 6' Comments Extra time for training Standing Exercises Cervical Jordyn Standing Exercise Name Cervical SB & ext Reps/Minutes 10' Other Exercises Semi-reclined Pec stretch Other Exercise Name Pec stretch Side bilateral Reps/Minutes 30 holds Semi-reclined Deep Cervical Neck Flexors Other Exercise Name Deep Cervical Neck Flexor strengthening Reps/Minutes 10' Comments Extra time for proper positioning and training Self-Care/Home Management Treatment Education Patient Education Home Exercise Program Activities Self-Care/Home Management Activities Issued & reviewed HEP: deep cervical neck flex ex. & Pec stretch. PT-OP-R Modalities Start: 09/17/20 18:56 Freq: Status: Active Protocol: Document 09/30/20 10:28 LRN (Rec: 09/30/20 11:18 LRN [id number]) Electric Stimulation Electric Stimulation Interferential Current (IFC) Body Location Pads: UT/Mid Intrascapular [ C7-T1] Duration (Minutes) 10 Intensity 12 Target/Sweep Sweep Patient Position Hooklying Combined With Heat/Cold Hot Pack Hot Pack/Cold Pack Treatment Hot Pack Location Upper/Lower back Patient Position Hooklying Treatment Duration (minutes) 10 Patient Tolerance Good Comments Bolster under knees PT-OP-T Assessment and Plan Start: 09/17/20 18:56 Freq: Status: Active Protocol: Document 09/30/20 10:28 LRN (Rec: 09/30/20 11:18 LRN [id number]) Physical Therapy Assessment Goals Four Impairment Poor posture Short Term Goal (STG) Pt will be educated in strategies to improve posture of head on shoulder and upper back(dowagers hump) via improved postural awareness and external factors. STG Duration 10/08/20 [facility] Goal (LTG) Pt will demonstrate improved head on shoulders posturing. LTG Duration 12/23/20 Three Impairment Weakness of neck requiring use of cervical collar for pain management Short Term Goal (STG) Pt will be educated in isometric cervical strengthening ex's for HEP. (09/28/20: Added C/S ext & SB jordyn strengthening ex to HEP) STG Duration 10/08/20 (09/28/20: Progressing ) Consumer Relations Specialist Goal (LTG) Pt will be able to drive for distances in town and sit without her her cervical collar to use computer for short periods of 15-30' or less without onset of burning pain. LTG Duration 12/23/20 Two Impairment Constant burning pain in thoracic region. Short Term Goal (STG) Pt pain will be intermittent in nature. STG Duration 10/22/20 [facility] Goal (LTG) Decrease pain intensity 50% with intermittent onset with use of UE's LTG Duration 12/23/20 One Impairment Pt lacks appropriate self care HEP. Short Term Goal (STG) Pt will be independent in a gentle HEP of thoracic and scapular ROM exercises. (09/28/20: Added T/S ROM ex to HEP) STG Duration 10/15/20 (09/28/20: Progressed ) Consumer Relations Specialist Goal (LTG) Pt will be independent in a self care progressive HEP. LTG Duration 12/23/20 (10/01/19: Progressing) Progress Towards Goals Progress Comments Progressed HEP: added deep cervical neck flex ex. & Pec stretch. Assessment Summary Assessment Pt presents today with increased soreness from shopping at [employer]. Standing with negative heel effect appears to be beneficial in improving pt posture. Pt hand shaking made doing isometric neck ex's seem strange to the pt; therefore use of a ball to push head into from a wall worked better for the patient. Fairly good performance of HEP except pt doesn't hold stretches long enough and needed cuing to do properly. Pt may need second review. Physical Therapy Plan Frequency and Duration Frequency of Treatment 2x/Week Plan of Care Start Date 09/24/20 Plan of Care End Date 12/23/20 Next Visit Focus/Plan Next Note Type Treatment Note Next Visit Plan Review HEP issued, progress neck strengthening. Add GENTLE UE shoulder ROM in supine to promote GENTLE thoracic ext, tio in upper thoracic spine, and add scapular ROM ex's. Add Isometric cervical neck rotation strengthening. Cont pec stretching. End with ice or MH/IFES in upper thoracic spine. Recommend shoes to improve posture.
--- NOTE | 2020-10-05 10:34 | PT.OTN ---
Current Diagnoses Pain in thoracic spine (10/05/20) Muscle weakness (generalized) (10/05/20) Abnormal posture (10/05/20) Physical Therapy Treatment Note PT-OP-A Visit Information Start: 09/17/20 18:56 Freq: Status: Active Protocol: Document 10/05/20 09:52 SP (Rec: 10/05/20 11:35 SP [id number]) Out-Patient Physical Therapy Visit Information Visit Information Visit Type Treatment Note Visit Note SUPERVISOR [employer]ONE brought pt back 7 min late Visit Start Time 09:52 Visit Stop Time 10:34 Total Visit Minutes 42 Visit Number 4 Number of SUPERVISOR STONE Visits 1 Evaluation Information Evaluation Date 09/24/20 Precautions Precautions C4-C5 and possibly other locations of neck fusion 3 lower back surgeries for discectomy. Parkinson's PT-OP-B Current Condition Start: 09/17/20 18:56 Freq: Status: Active Protocol: Document 09/24/20 08:17 LRN (Rec: 09/24/20 11:16 LRN [id number]) Current Condition History of Current Condition Onset Date 6 months ago Current Complaints Constant mid>upper thoracic region pain. History of Current Condition Pt has had pain for ~ 5 yrs that has worsened in the past 6 months. Has upper back constant burn, searing pain. Denies sharp jabbing pain. Neck doesn't hurt, but wears a collar around neck because it takes the weight of the head off the neck, relieving the back pain. Wears neck collar when she feels she needs it, sometimes all day, sometimes an hour. Wears driving and when on computer. Spouse carries groceries. She carries laundry and it causes back irritation. Does self traction of the neck ( towel roll behind the neck). Prior Treatments and Tests X-rays 07/27/20: DDD C. fusion of C4-C5, in 1992. Per pt intake form she reports 3 disc fusion. She states she had physical therapy before surgery. Back surgery 1989, 1992, 2002 for discectomy of lower back, at [facility] (Dr. Mikey Chin). Had therapy before the surgeries, but it made things worse. Does the exercises on occasion. Treatment Goals Patient/Caregiver Goals Pt goal is to avoid surgery, stretch out discs and back, take away the pain. Personal Factors Other Personal Factors That May Effect Parkinson's, fusion C5, C6 Therapy/Recovery PT-OP-C Subjective Start: 09/17/20 18:56 Freq: Status: Active Protocol: Document 10/05/20 09:52 SP (Rec: 10/05/20 11:35 SP [id number]) OP-PT Subjective Patient Comments Patient Comments Pt stated felt ok after leaving last tx, compliant with HEP but neck pain increased using BUE to hold ball still presses into wall. Yesterday had to use CP/ MHP contrast through the day to feel better. Hovering about 2/ 10 today and 7/10 when was in pain over the weekend. PT-OP-H Neuro Start: 09/17/20 18:56 Freq: Status: Active Protocol: Document 09/24/20 08:17 LRN (Rec: 09/24/20 11:16 LRN [id number]) Sensation Evaluation Gross Sensation Gross Sensation Left UE Impaired PT-OP-J Posture/Palpation/Skin Start: 09/17/20 18:56 Freq: Status: Active Protocol: Document 09/24/20 08:17 LRN (Rec: 09/24/20 11:16 LRN [id number]) Posture Evaluation Position Standing Head/C-Spine Posture Forward Head Shoulder Posture (L) Rounded,(R) Rounded,(L) Forward,(R) Forward Scapula Posture (R) Protracted,(L) Retracted,( R) Rotated Down,(L) Winged Arm Posture (L) Internally Rotated,(R) Internally Rotated Knee Posture (L) Genu Valgus,(R) Genu Valgus Palpation Assessment Location T/S Palpation Location Upper>Mid thoracic region Palpation Details R Rhomboids & Paraspinals are atrophied. Pain is not palpable in muscles. PA glide of T/S and pressure at facet joints, reproduces her burning pain with greatest area of pain at C7-T1, T1-T2. PT-OP-K Range of Motion Start: 09/17/20 18:56 Freq: Status: Active Protocol: Document 09/24/20 08:17 LRN (Rec: 09/24/20 11:16 LRN [id number]) Cervical Spine Range of Motion Cervical Spine Active Degrees Testing Position Sitting Flexion 33 Extension 25 Rotation Left 65 Rotation Right 65 Lateral Flexion Left 27 Lateral Flexion Right 24 ROM Limitations Soft Tissue Tightness Shoulder Goniometric Range of Motion Shoulder Right Active Shoulder ROM WFL No Testing Position Sitting Flexion 131 Abduction 105 Left Active Shoulder ROM WFL No Testing Position Sitting Flexion 137 Abduction 110 PT-OP-M Strength Start: 09/17/20 18:56 Freq: Status: Active Protocol: Document 09/24/20 08:17 LRN (Rec: 09/24/20 11:16 LRN [id number]) Cervical Spine Strength Cervical Spine Manual Muscle Testing Comments Generally 3/5 with pt able to move against gravity for short periods with transfers. Shoulder Strength Shoulder Manual Muscle Testing Right Comments Generally 5/5. Left Adduction 4- Good- External Rotation 4- Good- Internal Rotation 4- Good- Comments Generally 5/5 except as indicated above. PT-OP-Q Treatments Start: 09/17/20 18:56 Freq: Status: Active Protocol: Document 10/05/20 09:52 SP (Rec: 10/05/20 11:35 SP [id number]) Therapeutic Exercises Sidelying Exercises Upper Trunk Rot Sidelying Exercise Name Arms fwd, Rotation of upper trunk, head follows hand Side bilateral Reps/Minutes 5 sec hold x5 Comments Phys/v cuing and practice needed to stretch for proper 5 . Sitting Exercises Trunk rot Sitting Exercise Name Trunk Rot stretch Side bilateral Reps/Minutes 5 x3 sec hold Comments occasional cuing for tall posture and scap relaxed depress awareness Standing Exercises Cervical Jordyn Standing Exercise Name Cervical SB w/ ball & ext w/ rolled towel Side bilateral Resistance meet the ball/towel not win Reps/Minutes 3 x5 each Comments cued for slow press into meeting object and not over pressure arms at side Other Exercises Semi-reclined Pec stretch Other Exercise Name Pec stretch Side bilateral Reps/Minutes 30 holds Comments Home: lays on coffee table with cushion under and relaxing BUE out to side Semi-reclined Deep Cervical Neck Flexors Other Exercise Name Deep Cervical Neck Flexor strengthening Reps/Minutes 5sec hold x10 Comments home multiple locations, in PT supine chin nod Manual Therapy Treatment Soft Tissue Mobilization STMs Body Location suboccipitals,UT, suboccipital release Body Position Hooklying Comments 10' Manual Traction CS elongation Body Position Hooklying Reps/Duration 2 min Comments gentle manual traction then cued breath out w/ relaxing mm . PT-OP-R Modalities Start: 09/17/20 18:56 Freq: Status: Active Protocol: Document 09/30/20 10:28 LRN (Rec: 09/30/20 11:18 LRN [id number]) Electric Stimulation Electric Stimulation Interferential Current (IFC) Body Location Pads: UT/Mid Intrascapular [ C7-T1] Duration (Minutes) 10 Intensity 12 Target/Sweep Sweep Patient Position Hooklying Combined With Heat/Cold Hot Pack Hot Pack/Cold Pack Treatment Hot Pack Location Upper/Lower back Patient Position Hooklying Treatment Duration (minutes) 10 Patient Tolerance Good Comments Bolster under knees PT-OP-T Assessment and Plan Start: 09/17/20 18:56 Freq: Status: Active Protocol: Document 10/05/20 09:52 SP (Rec: 10/05/20 11:35 SP [id number]) Physical Therapy Assessment Goals Four Impairment Poor posture Short Term Goal (STG) Pt will be educated in strategies to improve posture of head on shoulder and upper back(dowagers hump) via improved postural awareness and external factors. 10/05/20: progressing in awareness of tall CS DNF chin nod alignment, still using neck collar at times for support needed during the day. STG Duration 10/08/20 [facility] Goal (LTG) Pt will demonstrate improved head on shoulders posturing. LTG Duration 12/23/20 Three Impairment Weakness of neck requiring use of cervical collar for pain management Short Term Goal (STG) Pt will be educated in isometric cervical strengthening ex's for HEP. (10/05/20: C/S ext & SB jordyn strengthening ex to HEP w/ cuing for gentle meeting object arms at side better tolerance today) STG Duration 10/08/20 (09/28/20: Progressing ) Senior Care Goal (LTG) Pt will be able to drive for distances in town and sit without her her cervical collar to use computer for short periods of 15-30' or less without onset of burning pain. LTG Duration 12/23/20 Two Impairment Constant burning pain in thoracic region. Short Term Goal (STG) Pt pain will be intermittent in nature. 10/05/20: over weekend post ex 7 /10 but today stayed at 2/10 no increase/ decrease from when arrived. STG Duration 10/22/20 Industrial Relations Commissioner Goal (LTG) Decrease pain intensity 50% with intermittent onset with use of UE's LTG Duration 12/23/20 One Impairment Pt lacks appropriate self care HEP. Short Term Goal (STG) Pt will be independent in a gentle HEP of thoracic and scapular ROM exercises. (10/05/20: Reviewed T/S ROM ex seated and side.) STG Duration 10/15/20 (09/28/20: Progressed ) Industrial Relations Commissioner Goal (LTG) Pt will be independent in a self care progressive HEP. LTG Duration 12/23/20 (10/01/19: Progressing) Progress Towards Goals Progress Towards Goals Progressing Toward Goals,Slow Progress due to Activity Tolerance Progress Comments Reviewed HEP: reviewed deep cervical neck flex ex, Pec stretch and TS rotation. Cuing required for scap depression awareness. Assessment Summary Assessment Pt responded well to manual, sensitive to pressure post neck but more broad MFR welcomend. Pt reported w/ increase neck pain over the weekend post CS isometric exercises hold ball at wall and pressing excessively, improved post cuing for arms at sides and rolled towel behind head retro press and meeting the object no over pressure w/ awarness of relaxed shlds. Pt stated felt better about her HEP exercises end of tx. Pt stated will apply MHP at home later, declined modalities today, maybe will do next tx at end. Physical Therapy Plan Frequency and Duration Frequency of Treatment 2x/Week Plan of Care Start Date 09/24/20 Plan of Care End Date 12/23/20 Therapeutic Interventions Therapeutic Interventions Aquatic Therapy,Home Exercise Program,Joint Mobilizations, Manual Therapy,Neuromuscular Re-education,Patient/Caregiver Education,Self-Care/Home Management,Soft Tissue Mobilization,Taping, Therapeutic Activities, Therapeutic Exercises Modalities Cold Pack/Ice Massage,Electric Stimulation,Hot Packs Next Visit Focus/Plan Next Note Type Treatment Note Next Visit Plan Continued to review HEP with previous neck strengthening. If responded well to last tx: Add GENTLE UE shoulder ROM in supine to promote GENTLE thoracic ext, tio in upper thoracic spine, and add scapular ROM ex's. Add Isometric cervical neck rotation strengthening. Cont pec stretching. End with ice or MH/IFES in upper thoracic spine. Recommend shoes to improve posture.
--- NOTE | 2020-10-08 12:23 | PT.OTN ---
Current Diagnoses Pain in thoracic spine (10/08/20) Muscle weakness (generalized) (10/08/20) Abnormal posture (10/08/20) Physical Therapy Treatment Note PT-OP-A Visit Information Start: 09/17/20 18:56 Freq: Status: Active Protocol: Document 10/08/20 11:30 LRN (Rec: 10/08/20 12:21 LRN [id number]) Out-Patient Physical Therapy Visit Information Visit Information Visit Type Treatment Note Visit Start Time 11:30 Visit Stop Time 12:12 Total Visit Minutes 42 Visit Number 5 Evaluation Information Evaluation Date 09/24/20 Precautions Precautions C4-C5 and possibly other locations of neck fusion 3 lower back surgeries for discectomy. Parkinson's PT-OP-B Current Condition Start: 09/17/20 18:56 Freq: Status: Active Protocol: Document 09/24/20 08:17 LRN (Rec: 09/24/20 11:16 LRN [id number]) Current Condition History of Current Condition Onset Date 6 months ago Current Complaints Constant mid>upper thoracic region pain. History of Current Condition Pt has had pain for ~ 5 yrs that has worsened in the past 6 months. Has upper back constant burn, searing pain. Denies sharp jabbing pain. Neck doesn't hurt, but wears a collar around neck because it takes the weight of the head off the neck, relieving the back pain. Wears neck collar when she feels she needs it, sometimes all day, sometimes an hour. Wears driving and when on computer. Spouse carries groceries. She carries laundry and it causes back irritation. Does self traction of the neck ( towel roll behind the neck). Prior Treatments and Tests X-rays 07/27/20: DDD C. fusion of C4-C5, in 1992. Per pt intake form she reports 3 disc fusion. She states she had physical therapy before surgery. Back surgery 1989, 1992, 2002 for discectomy of lower back, at [facility] (Dr. Mikey Chin). Had therapy before the surgeries, but it made things worse. Does the exercises on occasion. Treatment Goals Patient/Caregiver Goals Pt goal is to avoid surgery, stretch out discs and back, take away the pain. Personal Factors Other Personal Factors That May Effect Parkinson's, fusion C5, C6 Therapy/Recovery PT-OP-C Subjective Start: 09/17/20 18:56 Freq: Status: Active Protocol: Document 10/08/20 11:30 LRN (Rec: 10/08/20 12:21 LRN [id number]) OP-PT Subjective Patient Comments Patient Comments Thinks doing a little better because when starts to hurt she moves and it really helps. Using heat/ice for pain and not using collar. States she would like to do therapy 1x/ week and she now can do her ex 's on her own and can self relieve the pain. Gardened yesterday and didn't have to stop due to pain, no pain. States her helps her with laundry and putting dishes away and carrying groceries. PT-OP-H Neuro Start: 09/17/20 18:56 Freq: Status: Active Protocol: Document 09/24/20 08:17 LRN (Rec: 09/24/20 11:16 LRN [id number]) Sensation Evaluation Gross Sensation Gross Sensation Left UE Impaired PT-OP-J Posture/Palpation/Skin Start: 09/17/20 18:56 Freq: Status: Active Protocol: Document 09/24/20 08:17 LRN (Rec: 09/24/20 11:16 LRN [id number]) Posture Evaluation Position Standing Head/C-Spine Posture Forward Head Shoulder Posture (L) Rounded,(R) Rounded,(L) Forward,(R) Forward Scapula Posture (R) Protracted,(L) Retracted,( R) Rotated Down,(L) Winged Arm Posture (L) Internally Rotated,(R) Internally Rotated Knee Posture (L) Genu Valgus,(R) Genu Valgus Palpation Assessment Location T/S Palpation Location Upper>Mid thoracic region Palpation Details R Rhomboids & Paraspinals are atrophied. Pain is not palpable in muscles. PA glide of T/S and pressure at facet joints, reproduces her burning pain with greatest area of pain at C7-T1, T1-T2. PT-OP-K Range of Motion Start: 09/17/20 18:56 Freq: Status: Active Protocol: Document 09/24/20 08:17 LRN (Rec: 09/24/20 11:16 LRN [id number]) Cervical Spine Range of Motion Cervical Spine Active Degrees Testing Position Sitting Flexion 33 Extension 25 Rotation Left 65 Rotation Right 65 Lateral Flexion Left 27 Lateral Flexion Right 24 ROM Limitations Soft Tissue Tightness Shoulder Goniometric Range of Motion Shoulder Right Active Shoulder ROM WFL No Testing Position Sitting Flexion 131 Abduction 105 Left Active Shoulder ROM WFL No Testing Position Sitting Flexion 137 Abduction 110 PT-OP-M Strength Start: 09/17/20 18:56 Freq: Status: Active Protocol: Document 09/24/20 08:17 LRN (Rec: 09/24/20 11:16 LRN [id number]) Cervical Spine Strength Cervical Spine Manual Muscle Testing Comments Generally 3/5 with pt able to move against gravity for short periods with transfers. Shoulder Strength Shoulder Manual Muscle Testing Right Comments Generally 5/5. Left Adduction 4- Good- External Rotation 4- Good- Internal Rotation 4- Good- Comments Generally 5/5 except as indicated above. PT-OP-Q Treatments Start: 09/17/20 18:56 Freq: Status: Active Protocol: Document 10/08/20 11:30 LRN (Rec: 10/08/20 12:21 LRN [id number]) Therapeutic Exercises Supine Exercises Horiz AB/AD arms Supine Exercise Name Horiz AB/AD arms w/scapular pinches Side bilateral Reps/Minutes 15x Alternate Arm lifts Supine Exercise Name Alternate arm lifts Side bilateral Reps/Minutes 15x Cervical Ext Supine Exercise Name C. Ext pusing into pilllow Reps/Minutes 5 x 5 C. Jordyn Supine Exercise Name Ext, Deep Cervical Neck Flexors. Reps/Minutes 5 hold x 5 Sidelying Exercises Upper Trunk Rot Sidelying Exercise Name Arms fwd, Rotation of upper trunk, head follows hand Side bilateral Reps/Minutes 5 sec hold x5 Comments Initial Phys/v cuing and practice needed to stretch for proper 5. Sitting Exercises Cervical Jordyn Sitting Exercise Name Ext, SB, ROT Side bilateral Resistance Manual - self resist & use of ball Reps/Minutes 6' Comments Extra time for training with use of ball Trunk rot Sitting Exercise Name Trunk Rot stretch Side bilateral Reps/Minutes 5 x3 sec hold Comments occasional cuing for tall posture and scap relaxed depress awareness Self-Care/Home Management Treatment Education Patient Education Home Exercise Program Activities Self-Care/Home Management Activities Issued & reviewed HEP: Cervical Jordyn ext in supine, Thoracic/Neck strengthening: alternate arm lifts & horiz AB /AD w/ending in shoulder pinch . PT-OP-R Modalities Start: 09/17/20 18:56 Freq: Status: Active Protocol: Document 09/30/20 10:28 LRN (Rec: 09/30/20 11:18 LRN [id number]) Electric Stimulation Electric Stimulation Interferential Current (IFC) Body Location Pads: UT/Mid Intrascapular [ C7-T1] Duration (Minutes) 10 Intensity 12 Target/Sweep Sweep Patient Position Hooklying Combined With Heat/Cold Hot Pack Hot Pack/Cold Pack Treatment Hot Pack Location Upper/Lower back Patient Position Hooklying Treatment Duration (minutes) 10 Patient Tolerance Good Comments Bolster under knees PT-OP-T Assessment and Plan Start: 09/17/20 18:56 Freq: Status: Active Protocol: Document 10/08/20 11:30 LRN (Rec: 10/08/20 12:21 LRN [id number]) Physical Therapy Assessment Goals Four Impairment Poor posture Short Term Goal (STG) Pt will be educated in strategies to improve posture of head on shoulder and upper back(dowagers hump) via improved postural awareness and external factors. (10/08/20: Pt requires occasional cuing for posturing ). STG Duration 10/08/20 Shelter Goal (LTG) Pt will demonstrate improved head on shoulders posturing. LTG Duration 12/23/20 (10/08/20: MET GOAL) Three Impairment Weakness of neck requiring use of cervical collar for pain management Short Term Goal (STG) Pt will be educated in isometric cervical strengthening ex's for HEP. (10/08/20: C/S ext, SB, rot jordyn strengthening ex ) STG Duration 10/08/20 (10/08/20: MET GOAL) Supervisor Assembly Room Goal (LTG) Pt will be able to drive for distances in town and sit without her her cervical collar to use computer for short periods of 15-30' or less without onset of burning pain. LTG Duration 12/23/20 Two Impairment Constant burning pain in thoracic region. Short Term Goal (STG) Pt pain will be intermittent in nature. (10/08/20: Gardened yesterday and didn't have pain.) STG Duration 10/22/20 (10/08/20: MET GOAL) Supervisor Assembly Room Goal (LTG) Decrease pain intensity 50% with intermittent onset with use of UE's (10/08/20: Pt reports pain is now 50% less with UE's for one acitivity to date. Spouse is helping to do laundry and dishes) LTG Duration 12/23/20 One Impairment Pt lacks appropriate self care HEP. Short Term Goal (STG) Pt will be independent in a gentle HEP of thoracic and scapular ROM exercises. (10/05/20: Reviewed T/S ROM ex seated and side.) STG Duration 10/15/20 (09/28/20: Progressed ) Shelter Goal (LTG) Pt will be independent in a self care progressive HEP. LTG Duration 12/23/20 (10/09/19: Progressing) Progress Towards Goals Progress Comments STG #2 & #3: MET. Goal #4: STG: Progressing. LTG: MET. Advanced HEP. Assessment Summary Assessment Pt did not have complaints of pain with ex's. Physical Therapy Plan Frequency and Duration Frequency of Treatment 2x/Week Plan of Care Start Date 09/24/20 Plan of Care End Date 12/23/20 Next Visit Focus/Plan Next Note Type Treatment Note Next Visit Plan Continued to review HEP ( Isometric cervical rotation strengthening with Ball against wall or finger tip pressure). Review GENTLE UE shoulder ROM in supine. Add GENTLE thoracic ext, tio in upper thoracic spine, and add scapular ROM ex's. Cont pec stretching. If needed end modalities (ice) in upper thoracic spine.
--- NOTE | 2020-10-14 13:57 | PT.OTN ---
Current Diagnoses Pain in thoracic spine (10/14/20) Muscle weakness (generalized) (10/14/20) Abnormal posture (10/14/20) Physical Therapy Treatment Note PT-OP-A Visit Information Start: 09/17/20 18:56 Freq: Status: Active Protocol: Document 10/14/20 11:18 LRN (Rec: 10/14/20 12:03 LRN [id number]) Out-Patient Physical Therapy Visit Information Visit Information Visit Type Treatment Note Visit Start Time 11:18 Visit Stop Time 12:03 Total Visit Minutes 45 Visit Number 6 Evaluation Information Evaluation Date 09/24/20 Precautions Precautions C4-C5 and possibly other locations of neck fusion 3 lower back surgeries for discectomy. Parkinson's PT-OP-B Current Condition Start: 09/17/20 18:56 Freq: Status: Active Protocol: Document 09/24/20 08:17 LRN (Rec: 09/24/20 11:16 LRN [id number]) Current Condition History of Current Condition Onset Date 6 months ago Current Complaints Constant mid>upper thoracic region pain. History of Current Condition Pt has had pain for ~ 5 yrs that has worsened in the past 6 months. Has upper back constant burn, searing pain. Denies sharp jabbing pain. Neck doesn't hurt, but wears a collar around neck because it takes the weight of the head off the neck, relieving the back pain. Wears neck collar when she feels she needs it, sometimes all day, sometimes an hour. Wears driving and when on computer. Spouse carries groceries. She carries laundry and it causes back irritation. Does self traction of the neck ( towel roll behind the neck). Prior Treatments and Tests X-rays 07/27/20: DDD C. fusion of C4-C5, in 1992. Per pt intake form she reports 3 disc fusion. She states she had physical therapy before surgery. Back surgery 1989, 1992, 2002 for discectomy of lower back, at [facility] (Dr. Mikey Chin). Had therapy before the surgeries, but it made things worse. Does the exercises on occasion. Treatment Goals Patient/Caregiver Goals Pt goal is to avoid surgery, stretch out discs and back, take away the pain. Personal Factors Other Personal Factors That May Effect Parkinson's, fusion C5, C6 Therapy/Recovery PT-OP-C Subjective Start: 09/17/20 18:56 Freq: Status: Active Protocol: Document 10/14/20 11:18 LRN (Rec: 10/14/20 12:03 LRN [id number]) OP-PT Subjective Patient Comments Patient Comments Doing good mostly, thinks she is ready for discharge to her HEP. She is having trouble getting neck in comfortable position during sleep. Might be due to Parkinson's, when initially lying down she is tense but when relaxed the neck sinks in too far (sleeps on side). Pt reports she is always aware of her posture. Patient Questionnaires Quick Dash- Upper Extremity Quick Dash UE Score 29.54 Quick Dash UE Impairment 20 to 39% Impaired (Score 20- 39) PT-OP-H Neuro Start: 09/17/20 18:56 Freq: Status: Active Protocol: Document 09/24/20 08:17 LRN (Rec: 09/24/20 11:16 LRN [id number]) Sensation Evaluation Gross Sensation Gross Sensation Left UE Impaired PT-OP-J Posture/Palpation/Skin Start: 09/17/20 18:56 Freq: Status: Active Protocol: Document 09/24/20 08:17 LRN (Rec: 09/24/20 11:16 LRN [id number]) Posture Evaluation Position Standing Head/C-Spine Posture Forward Head Shoulder Posture (L) Rounded,(R) Rounded,(L) Forward,(R) Forward Scapula Posture (R) Protracted,(L) Retracted,( R) Rotated Down,(L) Winged Arm Posture (L) Internally Rotated,(R) Internally Rotated Knee Posture (L) Genu Valgus,(R) Genu Valgus Palpation Assessment Location T/S Palpation Location Upper>Mid thoracic region Palpation Details R Rhomboids & Paraspinals are atrophied. Pain is not palpable in muscles. PA glide of T/S and pressure at facet joints, reproduces her burning pain with greatest area of pain at C7-T1, T1-T2. PT-OP-K Range of Motion Start: 09/17/20 18:56 Freq: Status: Active Protocol: Document 09/24/20 08:17 LRN (Rec: 09/24/20 11:16 LRN [id number]) Cervical Spine Range of Motion Cervical Spine Active Degrees Testing Position Sitting Flexion 33 Extension 25 Rotation Left 65 Rotation Right 65 Lateral Flexion Left 27 Lateral Flexion Right 24 ROM Limitations Soft Tissue Tightness Shoulder Goniometric Range of Motion Shoulder Right Active Shoulder ROM WFL No Testing Position Sitting Flexion 131 Abduction 105 Left Active Shoulder ROM WFL No Testing Position Sitting Flexion 137 Abduction 110 PT-OP-M Strength Start: 09/17/20 18:56 Freq: Status: Active Protocol: Document 09/24/20 08:17 LRN (Rec: 09/24/20 11:16 LRN [id number]) Cervical Spine Strength Cervical Spine Manual Muscle Testing Comments Generally 3/5 with pt able to move against gravity for short periods with transfers. Shoulder Strength Shoulder Manual Muscle Testing Right Comments Generally 5/5. Left Adduction 4- Good- External Rotation 4- Good- Internal Rotation 4- Good- Comments Generally 5/5 except as indicated above. PT-OP-Q Treatments Start: 09/17/20 18:56 Freq: Status: Active Protocol: Document 10/14/20 11:18 LRN (Rec: 10/14/20 12:03 LRN [id number]) Therapeutic Exercises Supine Exercises Shoulder ER/IR Supine Exercise Name Shoulder ER/IR in 90/90 position Side bilateral Reps/Minutes 3 Horiz AB/AD with cane Supine Exercise Name Side to side in horiz AB/AD position with cane Side bilateral Resistance 1# Equipment Used cane Reps/Minutes 10x 2 Arm lifts w/cane Supine Exercise Name Arm lifts w/cane Side bilateral Equipment Used cane Reps/Minutes 30x Horiz AB/AD arms Supine Exercise Name Horiz AB/AD arms w/scapular pinches Side bilateral Reps/Minutes 30x Alternate Arm lifts Supine Exercise Name Alternate arm lifts Side bilateral Reps/Minutes 30x Sitting Exercises Scapular Depression Sitting Exercise Name Scapular Depression Side bilateral Reps/Minutes 6' Comments Extra time needed for training Trunk rot Sitting Exercise Name Trunk rotation Side bilateral Reps/Minutes 10x each Scapular Pinches w/chin tuck Sitting Exercise Name Scapular Pinch with chin tuck Side bilateral Reps/Minutes 15x Shoulder rolls Sitting Exercise Name Shoulder rolls fwd/bkwd Side bilateral Reps/Minutes 15x Standing Exercises Shoulder end-range flex Standing Exercise Name Shoulder End-range flexion w/ balloon on wall. Side bilateral Equipment Used Balloon Reps/Minutes 3' Self-Care/Home Management Treatment Education Other Education Discussed posturing with functional activities ( gardening, dishes, making dinner), Discussed gardening activities . Discussed car driving and computer work tolerance and strategies for pain management by resting when needed. Discussed strategies to improve posture of head on shoulders and upper back with pt indicating improved postural awareness with multiple activities. Discussed initial nighttime positioning to improve comfort with sleeping, to include having a little more support under head than needed to start. Pt will vary hgt of head support. Discussed/reviewed goals and plan of care and discharge. Activities Self-Care/Home Management Activities Issued & reviewed HEP: Gentle neck/shoulder & scapular strengthening. PT-OP-R Modalities Start: 09/17/20 18:56 Freq: Status: Active Protocol: Document 09/30/20 10:28 LRN (Rec: 09/30/20 11:18 LRN [id number]) Electric Stimulation Electric Stimulation Interferential Current (IFC) Body Location Pads: UT/Mid Intrascapular [ C7-T1] Duration (Minutes) 10 Intensity 12 Target/Sweep Sweep Patient Position Hooklying Combined With Heat/Cold Hot Pack Hot Pack/Cold Pack Treatment Hot Pack Location Upper/Lower back Patient Position Hooklying Treatment Duration (minutes) 10 Patient Tolerance Good Comments Bolster under knees PT-OP-T Assessment and Plan Start: 09/17/20 18:56 Freq: Status: Active Protocol: Document 10/14/20 11:18 LRN (Rec: 10/14/20 12:03 LRN [id number]) Physical Therapy Assessment Goals Four Impairment Poor posture Short Term Goal (STG) Pt will be educated in strategies to improve posture of head on shoulder and upper back(dowagers hump) via improved postural awareness and external factors. (10/08/20: Pt requires occasional cuing for posturing ). STG Duration 10/08/20 (10/14/20: MET GOAL) Senior Living Goal (LTG) Pt will demonstrate improved head on shoulders posturing. LTG Duration 12/23/20 (10/08/20: MET GOAL) Three Impairment Weakness of neck requiring use of cervical collar for pain management Short Term Goal (STG) Pt will be educated in isometric cervical strengthening ex's for HEP. (10/08/20: C/S ext, SB, rot jaime strengthening ex ) STG Duration 10/08/20 (10/08/20: MET GOAL) Specimen Boss Goal (LTG) Pt will be able to drive for distances in town and sit without her her cervical collar to use computer for short periods of 15-30' or less without onset of burning pain. (10/14/20: Not having burning pain with activities of driving and 15' on computer). LTG Duration 12/23/20 (10/14/20: MET GOAL) Two Impairment Constant burning pain in thoracic region. Short Term Goal (STG) Pt pain will be intermittent in nature. (10/08/20: Gardened yesterday and didn't have pain.) STG Duration 10/22/20 (10/08/20: MET GOAL) Senior Living Goal (LTG) Decrease pain intensity 50% with intermittent onset with use of UE's (10/14/20: Pt reports pain is now 50% less with UE's. Thoracic pain is rated 2-4/10 with gardening, washes and puts dishes in public relations specialist, dinner done in stages. States she knows how to get the pain down when present). LTG Duration 12/23/20 (10/14/20: MET GOAL) One Impairment Pt lacks appropriate self care HEP. Short Term Goal (STG) Pt will be independent in a gentle HEP of thoracic and scapular ROM exercises. STG Duration 10/15/20 (10/14/20: MET GOAL) Senior Living Goal (LTG) Pt will be independent in a self care progressive HEP. LTG Duration 12/23/20 (10/14/20: MET GOAL) Progress Towards Goals Progress Comments All Goals MET. Assessment Summary Assessment L shoulder had poor tolerance to shoulder ER/IR & pec stretch due to tremors in shoulders after previous exercises, pt reporting fatigue. The pt has done very well with therapy and is now ready to be discharged to her independent self care HEP. Physical Therapy Plan Discharge Physical Therapy Discharge Reasons Goals Met Discharge Comments Pt is not painfree but she feels she is capable of continuing on her self care HEP. Pt is satisfied with her progress thus far. Thank you for your referral.
== END 2020-10-15 08:04 | disposition home or self-care (01) ==
LOC: PHYS 11:15
PROVIDERS: Family Provider Family Medicine; PCP Family Medicine; Referring Provider Family Medicine; Visit Provider Family Medicine
DX: M54.6 Pain in thoracic spine (principal); M62.81 Muscle weakness (generalized); R29.3 Abnormal posture
CPT/HCPCS: 97032; 97110; 97140; 97162; 97535

== ENCOUNTER → 2021-01-12 15:26 | Outpatient (CLI) | payer MEDICARE, SELFPAY ==
--- NOTE | 2021-01-12 15:28 | DI.MRI.S_ITS ---
PROCEDURE: MR CERVICAL SPINE WO CON INDICATIONS: left sided neck pain with paresthesias, h/o prior fusion TECHNIQUE: Noncontrast sagittal T1 spin echo and T2 fast spin echo, sagittal STIR, foraminal oblique sagittal T2 fast spin echo, and axial gradient echo or T2 fast spin echo through the cervical spine. COMPARISON: [facility], CERVICAL SPINE 2 OR 3 VIEWS, 07/22/2014, 16:09. FINDINGS: Image quality: Excellent. Alignment and Curvature: There is normal bony alignment. Bones: C4 and C5 vertebral bodies are fused.. Reactive endplate changes noted adjacent to the C3-C4, C5-C6 and C6-C7 discs. Marrow demonstrates normal overall signal. Spinal Cord: Visualized spinal cord has normal size and signal. No cerebellar tonsillar herniation. Paraspinous Soft Tissues: No paravertebral masses. Prevertebral soft tissues are normal in thickness. C2-C3: Loss of disc signal. No central stenosis. No neural foraminal narrowing. No neural compression. C3-C4: Loss of disc signal and height. Moderate, diffuse disc bulge. Moderate narrowing of the central canal. Mild bilateral facet hypertrophy. Mild bilateral uncovertebral joint hypertrophy. Moderate right and severe left neural foraminal narrowing with compression of the exiting left C4 nerve root. C4-C5: Complete absence of disc substance with complete fusion of the C4 and C5 vertebral bodies. Mild bilateral facet hypertrophy. Moderate bilateral neural foraminal narrowing. No neural compression. C5-C6: Loss of disc signal and height. Moderate, diffuse disc bulge. Severe narrowing of the central canal with compression of the cervical spinal cord. Mild bilateral facet hypertrophy. Moderate bilateral uncovertebral joint hypertrophy. Severe bilateral neural foraminal narrowing with compression of the exiting C6 nerve roots. C6-C7: Loss of disc signal and height. Moderate, diffuse disc bulge. Severe narrowing of the central canal with compression of the cervical spinal cord. Mild bilateral facet hypertrophy. Mild bilateral uncovertebral joint hypertrophy. Severe bilateral neural foraminal narrowing with compression of the exiting C7 nerve roots. C7-T1: Loss of disc signal. No central stenosis. No neural foraminal narrowing. No neural compression IMPRESSION: 1. Multilevel degenerative disc disease. 2. Multilevel facet and uncovertebral arthropathy. 3. Severe C5-C6 and C6-C7 central canal narrowing with compression of the cervical spinal cord. 4. Severe left C3-C4 neural foraminal narrowing with compression of the exiting left C4 nerve root. Severe bilateral C5-C6 and C6-C7 neural foraminal narrowing with compression of the exiting bilateral C6 nerve roots and the exiting bilateral C7 nerve roots. Dictated by: Melani Ashby MD, PhD on 01/12/2021 at 17:51 Approved by: Melani Ashby MD, PhD on 01/12/2021 at 17:59
== END ==
PROVIDERS: Family Provider Family Medicine; PCP Family Medicine; Referring Provider Family Medicine; Visit Provider Family Medicine
DX: M50.31 Other cervical disc degeneration, high cervical region (principal); M48.02 Spinal stenosis, cervical region; R20.2 Paresthesia of skin; M47.812 Spondylosis without myelopathy or radiculopathy, cervical region; Z98.1 Arthrodesis status
CPT/HCPCS: 72141

== ENCOUNTER → 2021-02-10 08:49 | Outpatient (CLI) | payer MEDICARE, SELFPAY ==
[2021-02-10 10:01] LABS: Add Manual Diff / Slide Review NO; Basophils Absolute Auto 100 /uL (0-100); Basophils Percent Auto 0.9 % (0-2); Eosinophils Absolute Auto 100 /uL (0-450); Hematocrit 40.8 % (36-46); Hemoglobin 13.9 g/dL (12.0-16.0); Lymphocytes Absolute Auto 1900 /uL (1100-4500); Lymphocytes Percent Auto 32.2 % (25-40); Mean Corpuscular HGB Conc 34.1 % (30-36); Mean Corpuscular Hemoglobin 30.1 PG (26-34); Mean Corpuscular Volume 88.4 fL (80-100); Monocytes Absolute Auto 600 /uL (0-900); Monocytes Percent Auto 9.5 % (3-14); Neutrophils Absolute Auto 3300 /uL (1500-7000); Neutrophils Percent Auto 55.4 % (50-75); Platelet Count 243 X10^3/uL (150-400); Red Blood Cell Count 4.61 X10^6/uL (4.0-5.2); Red Cell Distribution Width 12.8 % (11.6-14.8)
== END ==
PROVIDERS: Family Provider Family Medicine; PCP Family Medicine; Referring Provider Neurological Surgery; Visit Provider Neurological Surgery
DX: M48.02 Spinal stenosis, cervical region (principal); Z92.89 Personal history of other medical treatment; M54.12 Radiculopathy, cervical region; Z01.810 Encounter for preprocedural cardiovascular examination
CPT/HCPCS: 36415; 85025; 93005

== ENCOUNTER → 2021-02-21 10:22 | Outpatient (CLI) | payer MEDICARE, SELFPAY ==
[2021-02-21 12:28] LABS: COVID-19 CEPHEID PCR (VTM/NP) Negative (Negative)
== END ==
PROVIDERS: Family Provider Family Medicine; PCP Family Medicine; Visit Provider Nurse Practitioner
DX: Z20.822 Contact with and (suspected) exposure to COVID-19 (principal)
CPT/HCPCS: C9803; U0003

== ENCOUNTER → 2021-04-15 10:14 | Outpatient (CLI) | payer MEDICARE, SELFPAY ==
--- NOTE | 2021-04-15 10:16 | DI.RAD.S_ITS ---
PROCEDURE: XR DEXA AXIAL SKELETON INDICATIONS: Encounter for screening for osteoporosis COMPARISON: [facility], CR, DEXA AXIAL SKELETON, 04/13/2016, 13:55. FINDINGS: This blank DEXA report has been sent in error by the PACS system. The correct and complete report will be forthcoming in 1-2 days. Thank you for your patience and understanding. Dictated by: Benjamín Gamez M.D. on 04/15/2021 at 11:32 Approved by: Benjamín Gamez M.D. on 04/15/2021 at 11:33
== END ==
PROVIDERS: Family Provider Family Medicine; PCP Family Medicine; Referring Provider Family Medicine; Visit Provider Family Medicine
DX: Z78.0 Asymptomatic menopausal state (principal); Z13.820 Encounter for screening for osteoporosis; M85.852 Other specified disorders of bone density and structure, left thigh
CPT/HCPCS: 77080

== ENCOUNTER 2021-05-24 13:45 | Outpatient (RCR) | payer MEDICARE, SELFPAY ==
--- NOTE | 2021-03-23 17:40 | PT.OIE ---
Current Diagnoses Stiffness of right shoulder, not elsewhere classified (03/23/21) Stiffness of left shoulder, not elsewhere classified (03/23/21) Spinal stenosis, cervical region (03/23/21) Radiculopathy, cervical region (03/23/21) Muscle weakness (generalized) (03/23/21) Past Medical History (Last Updated 07/27/20 @ 10:32 by Kell Santiago PA-C) Back pain Cervical radiculopathy Chronic cough Depression (03/24/11) Herniated cervical disc Parkinson's disease (06/18/14) S/P cervical spinal fusion Seasonal allergies Status post lumbar spinal fusion Past Surgical History (Last Reviewed 07/13/18 @ 12:05 by Khushboo Jenkins DO) S/P cervical spinal fusion Status post lumbar spinal fusion Visit Care Team Role Provider Type Khushboo Jenkins DO Family Provider Physician Primary Care Provider Specialty: Family Practice Address: [address] [place] [address] [address], [address] Email: [email or web address] [email or web address] Beck PA-C Attending Provider Non-Staff Referring Provider Specialty: Medical Address: [address] [place] [address] [address], [place], [address] Email: Physical Therapy Initial Evaluation PT-OP-A Visit Information Start: 03/23/21 12:44 Freq: Status: Active Protocol: Document 03/23/21 12:00 DCW (Rec: 03/23/21 14:58 [facility] [id number]) Out-Patient Physical Therapy Visit Information Visit Information Visit Type Initial Evaluation Visit Start Time 12:00 Visit Stop Time 12:40 Total Visit Minutes 40 Visit Number 1 Number of FOOT TENDER Visits 0 Evaluation Information Evaluation Date 03/23/21 PT-OP-B Current Condition Start: 03/23/21 12:44 Freq: Status: Active Protocol: Document 03/23/21 12:00 DCW (Rec: 03/23/21 14:58 [facility] [id number]) Current Condition History of Current Condition Onset Date 02/23/21 Current Complaints s/p C5-6/6-7 anterior cervical discectomy with arthrodesis History of Current Condition Pt is a 70 year old female presenting one month s/p anterior cervical discectomy and fusion. Pt had been experiencing severe radicular pain and weakness, L>R, with history of unsuccessful conservative treatment. Pt notes that she has been having difficulty since surgery, but admits that she has been seeing improvement. Pt's history is complicated by Parkinson's disease. Notes since she had surgery, she has had increased difficulty swallowing, but since she previously had speech therapy for Parkinson's, she knows a lot of tricks to help this. Notes continued fuzziness along left median nerve pathway into left thumb, index , and middle fingers. Main complaint at this time is feeling of severe UE weakness. Notes she was able to do her hair for the first time today, she has been having getting her arms back behind her head. Has difficulty donning her pants, feels she does not have the strength to pull them up. Admits to be very hesitant to even try most activities, as she is worried about causing damage to her neck. Treatment Goals Patient/Caregiver Goals Pt wants to be able to do more in the kitchen, states that she tried to make eggs the other day, could not even lift guan with left hand to dump eggs on her plate. Personal Factors Other Personal Factors That May Effect Parkinson's disease Therapy/Recovery PT-OP-C Subjective Start: 03/23/21 12:44 Freq: Status: Active Protocol: Document 03/23/21 12:00 DCW (Rec: 03/23/21 14:58 DCW [id number]) OP-PT Subjective Patient Comments Patient Comments This has been a really tough recovery. I had a similar neck surgery 28 years ago, and I just bounced right back. Patient Reported Progress Improving Patient Questionnaires Neck Disability Index NDI Score 26/50 = 52% Neck Disability Index Impairment 40 to 59% Impaired (Score 20- 29) Quick Dash- Upper Extremity Quick Dash UE Score 88.64% Quick Dash UE Impairment 80 to 99% Impaired (Score 80- 99) OP-PT Pain Assessment Pain Assessment Grid Paper Pain Assessment Grid Completed Yes: See scan PT-OP-K Range of Motion Start: 03/23/21 12:44 Freq: Status: Active Protocol: Document 03/23/21 12:00 DCW (Rec: 03/23/21 15:05 DCW [id number]) Cervical Spine Range of Motion Cervical Spine Active Degrees Testing Position Sitting Flexion 45 Extension 15 Rotation Left 53 Rotation Right 54 Lateral Flexion Left 15 Lateral Flexion Right 25 ROM Limitations Soft Tissue Tightness,Bony Restriction Shoulder Goniometric Range of Motion Shoulder Right Active Shoulder ROM WFL No Testing Position Sitting Flexion 90 Abduction 105 External Rotation at 0 degrees Abduction 52 Internal Rotation Behind Back (text) T8 Left Active Shoulder ROM WFL No Testing Position Sitting Flexion 84 Abduction 80 External Rotation at 0 degrees Abduction 39 Internal Rotation Behind Back (text) T10 Shoulder ROM Limitations Shoulder ROM Limitations Muscle Weakness PT-OP-M Strength Start: 03/23/21 12:44 Freq: Status: Active Protocol: Document 03/23/21 12:00 DCW (Rec: 03/23/21 15:05 [facility] [id number]) Shoulder Strength Shoulder Manual Muscle Testing Right Flexion 3- Fair- Abduction (C5) 3- Fair- External Rotation 3 Fair Internal Rotation 3- Fair- Left Flexion 2+ Poor+ Abduction (C5) 3- Fair- External Rotation 3- Fair- Internal Rotation 3- Fair- Hand Junior Sales Representative/Pinch Strength Hand Dominance Hand Dominance Right Hand Strength Left Junior Sales Representative (lbs) 5 Comments 3-trial average (5 lbs, 5 lbs, 5 lbs) Right Junior Sales Representative (lbs) 31.67 Comments 3-trial average (35 lbs, 35 lbs, 25 lbs) PT-OP-Q Treatments Start: 03/23/21 12:44 Freq: Status: Active Protocol: Document 03/23/21 12:00 DCW (Rec: 03/23/21 15:05 [facility] [id number]) Therapeutic Exercises Sitting Exercises 1 Sitting Exercise Name Junior Sales Representative strengthening Side bilateral Resistance Yellow Equipment Used T-putty Comments Full inspector health care facilities, individual finger, finger extension PT-OP-T Assessment and Plan Start: 03/23/21 12:44 Freq: Status: Active Protocol: Document 03/23/21 12:00 DCW (Rec: 03/23/21 17:40 DC [id number]) Physical Therapy Assessment Rehab Potential Rehabilitation Potential Good Evaluation Complexity Number of Personal Factors/Comorbidities 3 or More Number of Body Systems Impaired 3 Clinical Presentation at Evaluation Stable Impairments Impairments Activity Tolerance,Functional Activities,Functional Mobility ,Pain,ROM,Soft Tissue Mobility ,Strength Goals Three Impairment Significant weakness in bilateral upper extremities ( less than 3/5) Lehr Stripper Goal (LTG) Pt to increase bilateral upper extremity strength to at least 4-/5 in all planes to improve AROM of GH joints and allow pt to return to cooking in her kitchen without assistance. LTG Duration 06/22/21 Two Impairment Pt scores a significant disability of 88.64% on the QuickDASH Longterm Goal (LTG) Pt to score <50% disability on QuickDASH to show improved UE function LTG Duration 06/22/21 One Impairment Pt does not have an appropriate home exercise program Short Term Goal (STG) Pt to be independent and compliant with an appropriate HEP STG Duration 04/22/21 Assessment Summary Assessment Pt presents with significant weakness and dysfunction in her bilateral upper extremities s/p C5-7 discectomy and fusion. Pt's pain levels have declined since surgery, and she feels she is improving overall, but her hand and arm function has not returned as well as she had hoped following her discectomy. Pt should benefit from skilled therapy focusing on UE strengthening, including shoulders, wrists, and inspector health care facilities, as well as shoulder and ( gentle) cervical ROM. Pt's diagnosis of Parkinson's will clearly influence pt's course of rehab, however she should continue to progress as she is further removed from surgery. Physical Therapy Plan Frequency and Duration Frequency of Treatment 2x/Week Duration of Treatment Three months Plan of Care Start Date 03/23/21 Plan of Care End Date 06/22/21 Therapeutic Interventions Therapeutic Interventions Home Exercise Program,Manual Therapy,Neuromuscular Re- education,Patient/Caregiver Education,Self-Care/Home Management,Soft Tissue Mobilization,Therapeutic Activities,Therapeutic Exercises Modalities Cold Pack/Ice Massage,Electric Stimulation,Hot Packs, Ultrasound Next Visit Focus/Plan Next Note Type Treatment Note Next Visit Plan Shoulder, inspector health care facilities, and wrist strengthening and ROM, gentle cervical ROM/strengthening
--- NOTE | 2021-03-23 17:41 | PT.OPPOC ---
Physical, Occupational & Speech Therapy At [facility] Current Diagnoses Stiffness of right shoulder, not elsewhere classified (03/23/21) Stiffness of left shoulder, not elsewhere classified (03/23/21) Spinal stenosis, cervical region (03/23/21) Radiculopathy, cervical region (03/23/21) Muscle weakness (generalized) (03/23/21) Visit Care Team Role Provider Type Khushboo Jenkins DO Family Provider Physician Primary Care Provider Specialty: Family Practice Address: [address] [place] [address], [address], [address] Email: [email or web address] Yordy Beck PA-C Attending Provider Non-Staff Referring Provider Specialty: Medical Address: [address] [place] [address], [address], [address] Email: Plan Of Care PT-OP-T Assessment and Plan Start: 03/23/21 12:44 Freq: Status: Active Protocol: Document 03/23/21 12:00 DCW (Rec: 03/23/21 17:40 DCW [id number]) Physical Therapy Assessment Rehab Potential Rehabilitation Potential Good Evaluation Complexity Number of Personal Factors/Comorbidities 3 or More Number of Body Systems Impaired 3 Clinical Presentation at Evaluation Stable Impairments Impairments Activity Tolerance,Functional Activities,Functional Mobility ,Pain,ROM,Soft Tissue Mobility ,Strength Goals Three Impairment Significant weakness in bilateral upper extremities ( less than 3/5) Long-Term Goal (LTG) Pt to increase bilateral upper extremity strength to at least 4-/5 in all planes to improve AROM of GH joints and allow pt to return to cooking in her kitchen without assistance. LTG Duration 06/22/21 Two Impairment Pt scores a significant disability of 88.64% on the QuickDASH Registered Nurse Bone Marrow Transplant Goal (LTG) Pt to score <50% disability on QuickDASH to show improved UE function LTG Duration 06/22/21 One Impairment Pt does not have an appropriate home exercise program Short Term Goal (STG) Pt to be independent and compliant with an appropriate HEP STG Duration 04/22/21 Assessment Summary Assessment Pt presents with significant weakness and dysfunction in her bilateral upper extremities s/p C5-7 discectomy and fusion. Pt's pain levels have declined since surgery, and she feels she is improving overall, but her hand and arm function has not returned as well as she had hoped following her discectomy. Pt should benefit from skilled therapy focusing on UE strengthening, including shoulders, wrists, and cardiac exercise physiologist, as well as shoulder and ( gentle) cervical ROM. Pt's diagnosis of Parkinson's will clearly influence pt's course of rehab, however she should continue to progress as she is further removed from surgery. Physical Therapy Plan Frequency and Duration Frequency of Treatment 2x/Week Duration of Treatment Three months Plan of Care Start Date 03/23/21 Plan of Care End Date 06/22/21 Therapeutic Interventions Therapeutic Interventions Home Exercise Program,Manual Therapy,Neuromuscular Re- education,Patient/Caregiver Education,Self-Care/Home Management,Soft Tissue Mobilization,Therapeutic Activities,Therapeutic Exercises Modalities Cold Pack/Ice Massage,Electric Stimulation,Hot Packs, Ultrasound Next Visit Focus/Plan Next Note Type Treatment Note Next Visit Plan Shoulder, cardiac exercise physiologist, and wrist strengthening and ROM, gentle cervical ROM/strengthening Plan of Care Dates Plan of Care Start Date 03/23/21 Plan of Care End Date 06/22/21 Electronically Signed by: Neil Laird, PT 03/23/21 1497 Please Sign and Return: I have reviewed this Plan of Care and certify that the skilled therapy services above are required to meet the patient?s needs. Physician Signature Date Printed Name and Credentials Clinical Instructor Signature Printed Name and Credentials
--- NOTE | 2021-03-25 12:48 | PT.OTN ---
Current Diagnoses Stiffness of right shoulder, not elsewhere classified (03/25/21) Stiffness of left shoulder, not elsewhere classified (03/25/21) Spinal stenosis, cervical region (03/25/21) Radiculopathy, cervical region (03/25/21) Muscle weakness (generalized) (03/25/21) Physical Therapy Treatment Note PT-OP-A Visit Information Start: 03/23/21 12:44 Freq: Status: Active Protocol: Document 03/25/21 12:00 DCW (Rec: 03/25/21 12:47 DCW [id number]) Out-Patient Physical Therapy Visit Information Visit Information Visit Type Treatment Note Visit Start Time 12:00 Visit Stop Time 12:50 Total Visit Minutes 50 Visit Number 2 Number of CHANGE CONTROL ANALYST Visits 0 Evaluation Information Evaluation Date 03/23/21 PT-OP-B Current Condition Start: 03/23/21 12:44 Freq: Status: Active Protocol: Document 03/23/21 12:00 DCW (Rec: 03/23/21 14:58 DCW [id number]) Current Condition History of Current Condition Onset Date 02/23/21 Current Complaints s/p C5-6/6-7 anterior cervical discectomy with arthrodesis History of Current Condition Pt is a 70 year old female presenting one month s/p anterior cervical discectomy and fusion. Pt had been experiencing severe radicular pain and weakness, L>R, with history of unsuccessful conservative treatment. Pt notes that she has been having difficulty since surgery, but admits that she has been seeing improvement. Pt's history is complicated by Parkinson's disease. Notes since she had surgery, she has had increased difficulty swallowing, but since she previously had speech therapy for Parkinson's, she knows a lot of tricks tto help this. Notes continued fuzziness along left median nerve pathway into left thumb, index , and middle fingers. Main complaint at this time is feeling of severe UE weakness. Notes she was able to do her hair for the first time today, she has been having getting her arms back behind her head. Has difficulty donning her pants, feels she does not have the strength to pull them up. Admits to be very hesitant to even try most activities, as she is worried about causing damage to her neck. Treatment Goals Patient/Caregiver Goals Pt wants to be able to do more in the kitchen, states that she tried to make eggs the other day, could not even lift guan with left hand to dump eggs on her plate. Personal Factors Other Personal Factors That May Effect Parkinson's disease Therapy/Recovery PT-OP-C Subjective Start: 03/23/21 12:44 Freq: Status: Active Protocol: Document 03/25/21 12:00 DCW (Rec: 03/25/21 12:47 DCW [id number]) OP-PT Subjective Patient Comments Patient Comments I'm just really sore after that evaluation. My hands hurt from all the squeezing, and my shoulders are sore. I really had to fight with myself to come in today, PT-OP-K Range of Motion Start: 03/23/21 12:44 Freq: Status: Active Protocol: Document 03/23/21 12:00 DCW (Rec: 03/23/21 15:05 DCW [id number]) Cervical Spine Range of Motion Cervical Spine Active Degrees Testing Position Sitting Flexion 45 Extension 15 Rotation Left 53 Rotation Right 54 Lateral Flexion Left 15 Lateral Flexion Right 25 ROM Limitations Soft Tissue Tightness,Bony Restriction Shoulder Goniometric Range of Motion Shoulder Right Active Shoulder ROM WFL No Testing Position Sitting Flexion 90 Abduction 105 External Rotation at 0 degrees Abduction 52 Internal Rotation Behind Back (text) T8 Left Active Shoulder ROM WFL No Testing Position Sitting Flexion 84 Abduction 80 External Rotation at 0 degrees Abduction 39 Internal Rotation Behind Back (text) T10 Shoulder ROM Limitations Shoulder ROM Limitations Muscle Weakness PT-OP-M Strength Start: 03/23/21 12:44 Freq: Status: Active Protocol: Document 03/23/21 12:00 DCW (Rec: 03/23/21 15:05 DCW [id number]) Shoulder Strength Shoulder Manual Muscle Testing Right Flexion 3- Fair- Abduction (C5) 3- Fair- External Rotation 3 Fair Internal Rotation 3- Fair- Left Flexion 2+ Poor+ Abduction (C5) 3- Fair- External Rotation 3- Fair- Internal Rotation 3- Fair- Hand Shop Clerk/Pinch Strength Hand Dominance Hand Dominance Right Hand Strength Left Shop Clerk (lbs) 5 Comments 3-trial average (5 lbs, 5 lbs, 5 lbs) Right Shop Clerk (lbs) 31.67 Comments 3-trial average (35 lbs, 35 lbs, 25 lbs) PT-OP-Q Treatments Start: 03/23/21 12:44 Freq: Status: Active Protocol: Document 03/25/21 12:00 DCW (Rec: 03/25/21 12:47 DCW [id number]) Cardio Equipment Upper Body Ergometer (UBE) Duration (Minutes) 5 RPM 60 Seat Position 13 Height 2.5 Therapeutic Exercises Supine Exercises 4 Supine Exercise Name UE PNF D1/D2 flexion Side bilateral 3 Supine Exercise Name Horizontal Adduction Side bilateral 2 Supine Exercise Name Serratus punch Side bilateral 1 Supine Exercise Name Supine Flexion /c PVC Side bilateral Sitting Exercises 2 Sitting Exercise Name PROM Pulleys - Flexion, Abduction Side bilateral Standing Exercises 2 Standing Exercise Name AROM - Abduction /c PVC 1 Standing Exercise Name AROM - Flexion /c PVC PT-OP-R Modalities Start: 03/25/21 12:47 Freq: Status: Active Protocol: Document 03/25/21 12:00 DCW (Rec: 03/25/21 12:48 DCW [id number]) Hot Pack/Cold Pack Treatment Hot Pack Location Bilateral shoulders Patient Position Hooklying Treatment Duration (minutes) 10 PT-OP-T Assessment and Plan Start: 03/23/21 12:44 Freq: Status: Active Protocol: Document 03/25/21 12:00 DCW (Rec: 03/25/21 12:47 DCW [id number]) Physical Therapy Assessment Impairments Impairments Activity Tolerance,Functional Activities,Functional Mobility ,Pain,ROM,Soft Tissue Mobility ,Strength Goals Three Impairment Significant weakness in bilateral upper extremities ( less than 3/5) Manager Of Corporate Goal (LTG) Pt to increase bilateral upper extremity strength to at least 4-/5 in all planes to improve AROM of GH joints and allow pt to return to cooking in her kitchen without assistance. LTG Duration 06/22/21 Two Impairment Pt scores a significant disability of 88.64% on the QuickDASH Manager Of Corporate Goal (LTG) Pt to score <50% disability on QuickDASH to show improved UE function LTG Duration 06/22/21 One Impairment Pt does not have an appropriate home exercise program Short Term Goal (STG) Pt to be independent and compliant with an appropriate HEP STG Duration 04/22/21 Assessment Summary Assessment Pt fatigued very quickly during therapy, required multiple rest breaks. Physical Therapy Plan Frequency and Duration Frequency of Treatment 2x/Week Duration of Treatment Three months Plan of Care Start Date 03/23/21 Plan of Care End Date 06/22/21 Therapeutic Interventions Therapeutic Interventions Home Exercise Program,Manual Therapy,Neuromuscular Re- education,Patient/Caregiver Education,Self-Care/Home Management,Soft Tissue Mobilization,Therapeutic Activities,Therapeutic Exercises Modalities Cold Pack/Ice Massage,Electric Stimulation,Hot Packs, Ultrasound Next Visit Focus/Plan Next Note Type Treatment Note Next Visit Plan Shoulder, logging operations inspector, and wrist strengthening and ROM, gentle cervical ROM/strengthening
--- NOTE | 2021-04-28 15:41 | PT.OTN ---
Current Diagnoses Stiffness of right shoulder, not elsewhere classified (04/28/21) Stiffness of left shoulder, not elsewhere classified (04/28/21) Spinal stenosis, cervical region (04/28/21) Radiculopathy, cervical region (04/28/21) Muscle weakness (generalized) (04/28/21) Physical Therapy Treatment Note PT-OP-A Visit Information Start: 03/23/21 12:44 Freq: Status: Active Protocol: Document 04/28/21 12:52 (Rec: 04/28/21 13:56 [id number]) Out-Patient Physical Therapy Visit Information Visit Information Visit Type Treatment Note Visit Note Pt saw surgeon 2 weeks and pleased with the result. Visit Start Time 13:00 Visit Stop Time 13:45 Total Visit Minutes 55 Visit Number 3 Number of CORE COMPOSER FEEDER Visits 0 PT-OP-B Current Condition Start: 03/23/21 12:44 Freq: Status: Active Protocol: Document 03/23/21 12:00 DCW (Rec: 03/23/21 14:58 DCW [id number]) Current Condition History of Current Condition Onset Date 02/23/21 Current Complaints s/p C5-6/6-7 anterior cervical discectomy with arthrodesis History of Current Condition Pt is a 70 year old female presenting one month s/p anterior cervical discectomy and fusion. Pt had been experiencing severe radicular pain and weakness, L>R, with history of unsuccessful conservative treatment. Pt notes that she has been having difficulty since surgery, but admits that she has been seeing improvement. Pt's history is complicated by Parkinson's disease. Notes since she had surgery, she has had increased difficulty swallowing, but since she previously had speech therapy for Parkinson's, she knows a lot of tricks tto help this. Notes continued fuzziness along left median nerve pathway into left thumb, index , and middle fingers. Main complaint at this time is feeling of severe UE weakness. Notes she was able to do her hair for the first time today, she has been having getting her arms back behind her head. Has difficulty donning her pants, feels she does not have the strength to pull them up. Admits to be very hesitant to even try most activities, as she is worried about causing damage to her neck. Treatment Goals Patient/Caregiver Goals Pt wants to be able to do more in the kitchen, states that she tried to make eggs the other day, could not even lift guan with left hand to dump eggs on her plate. Personal Factors Other Personal Factors That May Effect Parkinson's disease Therapy/Recovery PT-OP-C Subjective Start: 03/23/21 12:44 Freq: Status: Active Protocol: Document 04/28/21 12:52 HH (Rec: 04/28/21 13:56 HH [id number]) OP-PT Subjective Patient Comments Patient Comments My biggest discomfort is sleeping. It wakes me up every 3-4 hours and i have to take ibuprofen. I usually get really bad headache. The first 3 fingers still have some numbness and occasional lighting sensation at the wrist. My wrist strength is getting better. I started doing laundry and folding clothes. PT-OP-K Range of Motion Start: 03/23/21 12:44 Freq: Status: Active Protocol: Document 03/23/21 12:00 DCW (Rec: 03/23/21 15:05 DCW [id number]) Cervical Spine Range of Motion Cervical Spine Active Degrees Testing Position Sitting Flexion 45 Extension 15 Rotation Left 53 Rotation Right 54 Lateral Flexion Left 15 Lateral Flexion Right 25 ROM Limitations Soft Tissue Tightness,Bony Restriction Shoulder Goniometric Range of Motion Shoulder Right Active Shoulder ROM WFL No Testing Position Sitting Flexion 90 Abduction 105 External Rotation at 0 degrees Abduction 52 Internal Rotation Behind Back (text) T8 Left Active Shoulder ROM WFL No Testing Position Sitting Flexion 84 Abduction 80 External Rotation at 0 degrees Abduction 39 Internal Rotation Behind Back (text) T10 Shoulder ROM Limitations Shoulder ROM Limitations Muscle Weakness PT-OP-M Strength Start: 03/23/21 12:44 Freq: Status: Active Protocol: Document 03/23/21 12:00 DCW (Rec: 03/23/21 15:05 DCW [id number]) Shoulder Strength Shoulder Manual Muscle Testing Right Flexion 3- Fair- Abduction (C5) 3- Fair- External Rotation 3 Fair Internal Rotation 3- Fair- Left Flexion 2+ Poor+ Abduction (C5) 3- Fair- External Rotation 3- Fair- Internal Rotation 3- Fair- Hand Ophthalmic Medical Technologist/Pinch Strength Hand Dominance Hand Dominance Right Hand Strength Left Ophthalmic Medical Technologist (lbs) 5 Comments 3-trial average (5 lbs, 5 lbs, 5 lbs) Right Ophthalmic Medical Technologist (lbs) 31.67 Comments 3-trial average (35 lbs, 35 lbs, 25 lbs) PT-OP-Q Treatments Start: 03/23/21 12:44 Freq: Status: Active Protocol: Document 04/28/21 12:52 HH (Rec: 04/28/21 13:56 [id number]) Therapeutic Exercises Standing Exercises upper trap stretch Standing Exercise Name arms behind back to pull slightly. Reps/Minutes 20 s holdx5 Comments for HEP, before and after sleep Manual Therapy Treatment Soft Tissue Mobilization STMs Body Location suboccipitals,UT, suboccipital release Body Position Sitting Comments T1-T4 extremely sensitive to touch but improved after. Nerve Glides shoulder decompression Nerve passive Comments pt reports pulling sensation at shoulders. median Body Position Supine Reps/Duration 15 mins Comments passive nerve glide. begins with arm abducted 60 degrees and perform passive glide at wrist level, then progressively towards arm at 90degrees. Pt reports pulling sensation at shoulder and elbow. PT-OP-R Modalities Start: 03/25/21 12:47 Freq: Status: Active Protocol: Document 04/28/21 12:52 HH (Rec: 04/28/21 13:56 [id number]) Hot Pack/Cold Pack Treatment Hot Pack Location Bilateral shoulders Patient Position Hooklying Treatment Duration (minutes) 10 PT-OP-T Assessment and Plan Start: 03/23/21 12:44 Freq: Status: Active Protocol: Document 04/28/21 12:52 HH (Rec: 04/28/21 13:56 [id number]) Physical Therapy Assessment Goals Three Impairment Significant weakness in bilateral upper extremities ( less than 3/5) Assisted Goal (LTG) Pt to increase bilateral upper extremity strength to at least 4-/5 in all planes to improve AROM of GH joints and allow pt to return to cooking in her kitchen without assistance. LTG Duration 06/22/21 Two Impairment Pt scores a significant disability of 88.64% on the QuickDASH Assisted Goal (LTG) Pt to score <50% disability on QuickDASH to show improved UE function LTG Duration 06/22/21 One Impairment Pt does not have an appropriate home exercise program Short Term Goal (STG) Pt to be independent and compliant with an appropriate HEP STG Duration 04/22/21 Assessment Summary Assessment pt returns to PT today after a month and feels like she is ready to do PT now. She has night pain, constant numbness to first 3 fingers. Her UTTT for median is very limited bilaterally. This session focused on improving neural tension bilaterally. Added upper trap stretch to her HEP Physical Therapy Plan Frequency and Duration Frequency of Treatment 2x/Week Duration of Treatment Three months Plan of Care Start Date 03/23/21 Plan of Care End Date 06/22/21 Therapeutic Interventions Therapeutic Interventions Home Exercise Program,Manual Therapy,Neuromuscular Re- education,Patient/Caregiver Education,Self-Care/Home Management,Soft Tissue Mobilization,Therapeutic Activities,Therapeutic Exercises Modalities Cold Pack/Ice Massage,Electric Stimulation,Hot Packs, Ultrasound Next Visit Focus/Plan Next Note Type Treatment Note Next Visit Plan Shoulder, slot machine key person, and wrist strengthening and ROM, gentle cervical ROM/strengthening
--- NOTE | 2021-05-04 12:40 | PT.OTN ---
Current Diagnoses Stiffness of right shoulder, not elsewhere classified (05/04/21) Stiffness of left shoulder, not elsewhere classified (05/04/21) Spinal stenosis, cervical region (05/04/21) Radiculopathy, cervical region (05/04/21) Muscle weakness (generalized) (05/04/21) Physical Therapy Treatment Note PT-OP-A Visit Information Start: 03/23/21 12:44 Freq: Status: Active Protocol: Document 05/04/21 12:00 DCW (Rec: 05/04/21 12:40 DCW [id number]) Out-Patient Physical Therapy Visit Information Visit Information Visit Type Treatment Note Visit Start Time 12:00 Visit Stop Time 12:50 Total Visit Minutes 50 Visit Number 4 Number of CAMPAIGN ANALYST Visits 0 Evaluation Information Evaluation Date 03/23/21 PT-OP-B Current Condition Start: 03/23/21 12:44 Freq: Status: Active Protocol: Document 03/23/21 12:00 DCW (Rec: 03/23/21 14:58 DCW [id number]) Current Condition History of Current Condition Onset Date 02/23/21 Current Complaints s/p C5-6/6-7 anterior cervical discectomy with arthrodesis History of Current Condition Pt is a 70 year old female presenting one month s/p anterior cervical discectomy and fusion. Pt had been experiencing severe radicular pain and weakness, L>R, with history of unsuccessful conservative treatment. Pt notes that she has been having difficulty since surgery, but admits that she has been seeing improvement. Pt's history is complicated by Parkinson's disease. Notes since she had surgery, she has had increased difficulty swallowing, but since she previously had speech therapy for Parkinson's, she knows a lot of tricks tto help this. Notes continued fuzziness along left median nerve pathway into left thumb, index , and middle fingers. Main complaint at this time is feeling of severe UE weakness. Notes she was able to do her hair for the first time today, she has been having getting her arms back behind her head. Has difficulty donning her pants, feels she does not have the strength to pull them up. Admits to be very hesitant to even try most activities, as she is worried about causing damage to her neck. Treatment Goals Patient/Caregiver Goals Pt wants to be able to do more in the kitchen, states that she tried to make eggs the other day, could not even lift guan with left hand to dump eggs on her plate. Personal Factors Other Personal Factors That May Effect Parkinson's disease Therapy/Recovery PT-OP-C Subjective Start: 03/23/21 12:44 Freq: Status: Active Protocol: Document 05/04/21 12:00 DCW (Rec: 05/04/21 12:40 DCW [id number]) OP-PT Subjective Patient Comments Patient Comments Pt still struggling with sleep , reports she has been awake since 3:30 this AM. Does feel much more comfortable with her neck in general. PT-OP-K Range of Motion Start: 03/23/21 12:44 Freq: Status: Active Protocol: Document 03/23/21 12:00 DCW (Rec: 03/23/21 15:05 DCW [id number]) Cervical Spine Range of Motion Cervical Spine Active Degrees Testing Position Sitting Flexion 45 Extension 15 Rotation Left 53 Rotation Right 54 Lateral Flexion Left 15 Lateral Flexion Right 25 ROM Limitations Soft Tissue Tightness,Bony Restriction Shoulder Goniometric Range of Motion Shoulder Right Active Shoulder ROM WFL No Testing Position Sitting Flexion 90 Abduction 105 External Rotation at 0 degrees Abduction 52 Internal Rotation Behind Back (text) T8 Left Active Shoulder ROM WFL No Testing Position Sitting Flexion 84 Abduction 80 External Rotation at 0 degrees Abduction 39 Internal Rotation Behind Back (text) T10 Shoulder ROM Limitations Shoulder ROM Limitations Muscle Weakness PT-OP-M Strength Start: 03/23/21 12:44 Freq: Status: Active Protocol: Document 03/23/21 12:00 DCW (Rec: 03/23/21 15:05 DCW [id number]) Shoulder Strength Shoulder Manual Muscle Testing Right Flexion 3- Fair- Abduction (C5) 3- Fair- External Rotation 3 Fair Internal Rotation 3- Fair- Left Flexion 2+ Poor+ Abduction (C5) 3- Fair- External Rotation 3- Fair- Internal Rotation 3- Fair- Hand Senior Staff Consultant/Pinch Strength Hand Dominance Hand Dominance Right Hand Strength Left Senior Staff Consultant (lbs) 5 Comments 3-trial average (5 lbs, 5 lbs, 5 lbs) Right Senior Staff Consultant (lbs) 31.67 Comments 3-trial average (35 lbs, 35 lbs, 25 lbs) PT-OP-Q Treatments Start: 03/23/21 12:44 Freq: Status: Active Protocol: Document 05/04/21 12:00 DCW (Rec: 05/04/21 12:40 DCW [id number]) Cardio Equipment Upper Body Ergometer (UBE) Duration (Minutes) 3 RPM 60 Seat Position 14 Height 3 Therapeutic Exercises Sitting Exercises 2 Sitting Exercise Name PROM Pulleys - Flexion, Abduction Side bilateral Standing Exercises 2 Standing Exercise Name AROM - Abduction /c PVC 1 Standing Exercise Name AROM - Flexion /c PVC Manual Therapy Treatment Soft Tissue Mobilization STMs Body Location suboccipitals,UT, suboccipital release Body Position Sitting Comments T1-T4 extremely sensitive to touch but improved after. Nerve Glides shoulder decompression Nerve passive Comments pt reports pulling sensation at shoulders. median Body Position Supine Reps/Duration 15 mins Comments passive nerve glide. begins with arm abducted 60 degrees and perform passive glide at wrist level, then progressively towards arm at 90degrees. Pt reports pulling sensation at shoulder and elbow. PT-OP-R Modalities Start: 03/25/21 12:47 Freq: Status: Active Protocol: Document 05/04/21 12:00 DCW (Rec: 05/04/21 12:40 DCW [id number]) Hot Pack/Cold Pack Treatment Hot Pack Location Bilateral shoulders Patient Position Hooklying Treatment Duration (minutes) 10 PT-OP-T Assessment and Plan Start: 03/23/21 12:44 Freq: Status: Active Protocol: Document 05/04/21 12:00 DCW (Rec: 05/04/21 12:40 DCW [id number]) Physical Therapy Assessment Impairments Impairments Activity Tolerance,Functional Activities,Functional Mobility ,Pain,ROM,Soft Tissue Mobility ,Strength Goals Three Impairment Significant weakness in bilateral upper extremities ( less than 3/5) Longterm Goal (LTG) Pt to increase bilateral upper extremity strength to at least 4-/5 in all planes to improve AROM of GH joints and allow pt to return to cooking in her kitchen without assistance. LTG Duration 06/22/21 Two Impairment Pt scores a significant disability of 88.64% on the QuickDASH Gearcase Assembler Goal (LTG) Pt to score <50% disability on QuickDASH to show improved UE function LTG Duration 06/22/21 One Impairment Pt does not have an appropriate home exercise program Short Term Goal (STG) Pt to be independent and compliant with an appropriate HEP STG Duration 04/22/21 Assessment Summary Assessment Pt still experiencing significant fatigue with activity, showing some improvement with tone and nerve glides. Physical Therapy Plan Frequency and Duration Frequency of Treatment 2x/Week Duration of Treatment Three months Plan of Care Start Date 03/23/21 Plan of Care End Date 06/22/21 Therapeutic Interventions Therapeutic Interventions Home Exercise Program,Manual Therapy,Neuromuscular Re- education,Patient/Caregiver Education,Self-Care/Home Management,Soft Tissue Mobilization,Therapeutic Activities,Therapeutic Exercises Modalities Cold Pack/Ice Massage,Electric Stimulation,Hot Packs, Ultrasound Next Visit Focus/Plan Next Note Type Treatment Note Next Visit Plan Shoulder, senior j2ee developer, and wrist strengthening and ROM, gentle cervical ROM/strengthening
--- NOTE | 2021-05-06 14:28 | PT.OTN ---
Current Diagnoses Stiffness of right shoulder, not elsewhere classified (05/06/21) Stiffness of left shoulder, not elsewhere classified (05/06/21) Spinal stenosis, cervical region (05/06/21) Radiculopathy, cervical region (05/06/21) Muscle weakness (generalized) (05/06/21) Physical Therapy Treatment Note PT-OP-A Visit Information Start: 03/23/21 12:44 Freq: Status: Active Protocol: Document 05/06/21 13:45 DCW (Rec: 05/06/21 14:28 DCW [id number]) Out-Patient Physical Therapy Visit Information Visit Information Visit Type Treatment Note Visit Start Time 13:45 Visit Stop Time 14:35 Total Visit Minutes 50 Visit Number 5 Number of BODY COVERER Visits 0 Evaluation Information Evaluation Date 03/23/21 PT-OP-B Current Condition Start: 03/23/21 12:44 Freq: Status: Active Protocol: Document 03/23/21 12:00 DCW (Rec: 03/23/21 14:58 DCW [id number]) Current Condition History of Current Condition Onset Date 02/23/21 Current Complaints s/p C5-6/6-7 anterior cervical discectomy with arthrodesis History of Current Condition Pt is a 70 year old female presenting one month s/p anterior cervical discectomy and fusion. Pt had been experiencing severe radicular pain and weakness, L>R, with history of unsuccessful conservative treatment. Pt notes that she has been having difficulty since surgery, but admits that she has been seeing improvement. Pt's history is complicated by Parkinson's disease. Notes since she had surgery, she has had increased difficulty swallowing, but since she previously had speech therapy for Parkinson's, she knows a lot of tricks tto help this. Notes continued fuzziness along left median nerve pathway into left thumb, index , and middle fingers. Main complaint at this time is feeling of severe UE weakness. Notes she was able to do her hair for the first time today, she has been having getting her arms back behind her head. Has difficulty donning her pants, feels she does not have the strength to pull them up. Admits to be very hesitant to even try most activities, as she is worried about causing damage to her neck. Treatment Goals Patient/Caregiver Goals Pt wants to be able to do more in the kitchen, states that she tried to make eggs the other day, could not even lift guan with left hand to dump eggs on her plate. Personal Factors Other Personal Factors That May Effect Parkinson's disease Therapy/Recovery PT-OP-C Subjective Start: 03/23/21 12:44 Freq: Status: Active Protocol: Document 05/06/21 13:45 DCW (Rec: 05/06/21 14:28 DCW [id number]) OP-PT Subjective Patient Comments Patient Comments Pt could feel it following her last visit, but it wasn't anything too bad. PT-OP-K Range of Motion Start: 03/23/21 12:44 Freq: Status: Active Protocol: Document 03/23/21 12:00 DCW (Rec: 03/23/21 15:05 DCW [id number]) Cervical Spine Range of Motion Cervical Spine Active Degrees Testing Position Sitting Flexion 45 Extension 15 Rotation Left 53 Rotation Right 54 Lateral Flexion Left 15 Lateral Flexion Right 25 ROM Limitations Soft Tissue Tightness,Bony Restriction Shoulder Goniometric Range of Motion Shoulder Right Active Shoulder ROM WFL No Testing Position Sitting Flexion 90 Abduction 105 External Rotation at 0 degrees Abduction 52 Internal Rotation Behind Back (text) T8 Left Active Shoulder ROM WFL No Testing Position Sitting Flexion 84 Abduction 80 External Rotation at 0 degrees Abduction 39 Internal Rotation Behind Back (text) T10 Shoulder ROM Limitations Shoulder ROM Limitations Muscle Weakness PT-OP-M Strength Start: 03/23/21 12:44 Freq: Status: Active Protocol: Document 03/23/21 12:00 DCW (Rec: 03/23/21 15:05 DCW [id number]) Shoulder Strength Shoulder Manual Muscle Testing Right Flexion 3- Fair- Abduction (C5) 3- Fair- External Rotation 3 Fair Internal Rotation 3- Fair- Left Flexion 2+ Poor+ Abduction (C5) 3- Fair- External Rotation 3- Fair- Internal Rotation 3- Fair- Hand Splash Line Operator/Pinch Strength Hand Dominance Hand Dominance Right Hand Strength Left Splash Line Operator (lbs) 5 Comments 3-trial average (5 lbs, 5 lbs, 5 lbs) Right Splash Line Operator (lbs) 31.67 Comments 3-trial average (35 lbs, 35 lbs, 25 lbs) PT-OP-Q Treatments Start: 03/23/21 12:44 Freq: Status: Active Protocol: Document 05/06/21 13:45 DCW (Rec: 05/06/21 14:28 DCW [id number]) Cardio Equipment Upper Body Ergometer (UBE) Duration (Minutes) 3 RPM 60 Seat Position 14 Height 3 Therapeutic Exercises Sitting Exercises 2 Sitting Exercise Name PROM Pulleys - Flexion, Abduction Side bilateral Standing Exercises 2 Standing Exercise Name AROM - Abduction /c PVC 1 Standing Exercise Name AROM - Flexion /c PVC Manual Therapy Treatment Soft Tissue Mobilization STMs Body Location suboccipitals,UT, suboccipital release Body Position Sitting Comments T1-T4 extremely sensitive to touch but improved after. Nerve Glides shoulder decompression Nerve passive Comments pt reports pulling sensation at shoulders. median Body Position Supine Comments passive nerve glide. begins with arm abducted 60 degrees and perform passive glide at wrist level, then progressively towards arm at 90degrees. Pt reports pulling sensation at shoulder and elbow. PT-OP-R Modalities Start: 03/25/21 12:47 Freq: Status: Active Protocol: Document 05/06/21 13:45 DCW (Rec: 05/06/21 14:28 DCW [id number]) Hot Pack/Cold Pack Treatment Hot Pack Location Bilateral shoulders Patient Position Hooklying Treatment Duration (minutes) 10 PT-OP-T Assessment and Plan Start: 03/23/21 12:44 Freq: Status: Active Protocol: Document 05/06/21 13:45 DCW (Rec: 05/06/21 14:28 DCW [id number]) Physical Therapy Assessment Impairments Impairments Activity Tolerance,Functional Activities,Functional Mobility ,Pain,ROM,Soft Tissue Mobility ,Strength Goals Three Impairment Significant weakness in bilateral upper extremities ( less than 3/5) [facility] Goal (LTG) Pt to increase bilateral upper extremity strength to at least 4-/5 in all planes to improve AROM of GH joints and allow pt to return to cooking in her kitchen without assistance. LTG Duration 06/22/21 Two Impairment Pt scores a significant disability of 88.64% on the QuickDASH [facility] Goal (LTG) Pt to score <50% disability on QuickDASH to show improved UE function LTG Duration 06/22/21 One Impairment Pt does not have an appropriate home exercise program Short Term Goal (STG) Pt to be independent and compliant with an appropriate HEP STG Duration 04/22/21 Assessment Summary Assessment Pt very self-limiting with her exercises today, feeling increased soreness in left shoulder. Tolerated manual treatment well. Physical Therapy Plan Frequency and Duration Frequency of Treatment 2x/Week Duration of Treatment Three months Plan of Care Start Date 03/23/21 Plan of Care End Date 06/22/21 Therapeutic Interventions Therapeutic Interventions Home Exercise Program,Manual Therapy,Neuromuscular Re- education,Patient/Caregiver Education,Self-Care/Home Management,Soft Tissue Mobilization,Therapeutic Activities,Therapeutic Exercises Modalities Cold Pack/Ice Massage,Electric Stimulation,Hot Packs, Ultrasound Next Visit Focus/Plan Next Note Type Treatment Note Next Visit Plan Shoulder, digester operator, and wrist strengthening and ROM, gentle cervical ROM/strengthening
--- NOTE | 2021-05-09 12:45 | PT.OTN ---
Current Diagnoses Stiffness of right shoulder, not elsewhere classified (05/09/21) Stiffness of left shoulder, not elsewhere classified (05/09/21) Spinal stenosis, cervical region (05/09/21) Radiculopathy, cervical region (05/09/21) Muscle weakness (generalized) (05/09/21) Physical Therapy Treatment Note PT-OP-A Visit Information Start: 03/23/21 12:44 Freq: Status: Active Protocol: Document 05/09/21 12:00 DCW (Rec: 05/09/21 12:45 DCW [id number]) Out-Patient Physical Therapy Visit Information Visit Information Visit Type Treatment Note Visit Start Time 12:00 Visit Stop Time 12:50 Total Visit Minutes 50 Visit Number 6 Number of DEPARTMENTAL SECRETARY Visits 0 Evaluation Information Evaluation Date 03/23/21 PT-OP-B Current Condition Start: 03/23/21 12:44 Freq: Status: Active Protocol: Document 03/23/21 12:00 DCW (Rec: 03/23/21 14:58 DCW [id number]) Current Condition History of Current Condition Onset Date 02/23/21 Current Complaints s/p C5-6/6-7 anterior cervical discectomy with arthrodesis History of Current Condition Pt is a 70 year old female presenting one month s/p anterior cervical discectomy and fusion. Pt had been experiencing severe radicular pain and weakness, L>R, with history of unsuccessful conservative treatment. Pt notes that she has been having difficulty since surgery, but admits that she has been seeing improvement. Pt's history is complicated by Parkinson's disease. Notes since she had surgery, she has had increased difficulty swallowing, but since she previously had speech therapy for Parkinson's, she knows a lot of tricks tto help this. Notes continued fuzziness along left median nerve pathway into left thumb, index , and middle fingers. Main complaint at this time is feeling of severe UE weakness. Notes she was able to do her hair for the first time today, she has been having getting her arms back behind her head. Has difficulty donning her pants, feels she does not have the strength to pull them up. Admits to be very hesitant to even try most activities, as she is worried about causing damage to her neck. Treatment Goals Patient/Caregiver Goals Pt wants to be able to do more in the kitchen, states that she tried to make eggs the other day, could not even lift guan with left hand to dump eggs on her plate. Personal Factors Other Personal Factors That May Effect Parkinson's disease Therapy/Recovery PT-OP-C Subjective Start: 03/23/21 12:44 Freq: Status: Active Protocol: Document 05/09/21 12:00 DCW (Rec: 05/09/21 12:45 DCW [id number]) OP-PT Subjective Patient Comments Patient Comments Pt notes recent increase in tingling in her first three phalnges PT-OP-K Range of Motion Start: 03/23/21 12:44 Freq: Status: Active Protocol: Document 03/23/21 12:00 DCW (Rec: 03/23/21 15:05 DCW [id number]) Cervical Spine Range of Motion Cervical Spine Active Degrees Testing Position Sitting Flexion 45 Extension 15 Rotation Left 53 Rotation Right 54 Lateral Flexion Left 15 Lateral Flexion Right 25 ROM Limitations Soft Tissue Tightness,Bony Restriction Shoulder Goniometric Range of Motion Shoulder Right Active Shoulder ROM WFL No Testing Position Sitting Flexion 90 Abduction 105 External Rotation at 0 degrees Abduction 52 Internal Rotation Behind Back (text) T8 Left Active Shoulder ROM WFL No Testing Position Sitting Flexion 84 Abduction 80 External Rotation at 0 degrees Abduction 39 Internal Rotation Behind Back (text) T10 Shoulder ROM Limitations Shoulder ROM Limitations Muscle Weakness PT-OP-M Strength Start: 03/23/21 12:44 Freq: Status: Active Protocol: Document 03/23/21 12:00 DCW (Rec: 03/23/21 15:05 DCW [id number]) Shoulder Strength Shoulder Manual Muscle Testing Right Flexion 3- Fair- Abduction (C5) 3- Fair- External Rotation 3 Fair Internal Rotation 3- Fair- Left Flexion 2+ Poor+ Abduction (C5) 3- Fair- External Rotation 3- Fair- Internal Rotation 3- Fair- Hand Print Buyer/Pinch Strength Hand Dominance Hand Dominance Right Hand Strength Left Print Buyer (lbs) 5 Comments 3-trial average (5 lbs, 5 lbs, 5 lbs) Right Print Buyer (lbs) 31.67 Comments 3-trial average (35 lbs, 35 lbs, 25 lbs) PT-OP-Q Treatments Start: 03/23/21 12:44 Freq: Status: Active Protocol: Document 05/09/21 12:00 DCW (Rec: 05/09/21 12:45 DCW [id number]) Cardio Equipment Recumbent Elliptical (Biodex) Duration (Minutes) 2 Resistance 2 Seat Position 9 Therapeutic Exercises Supine Exercises 4 Supine Exercise Name UE PNF D1/D2 flexion Side bilateral Manual Therapy Treatment Soft Tissue Mobilization STMs Body Location suboccipitals,UT, suboccipital release Body Position Supine Comments T1-T4 extremely sensitive to touch but improved after. Nerve Glides shoulder decompression Nerve passive Comments pt reports pulling sensation at shoulders. median Body Position Supine Comments passive nerve glide. begins with arm abducted 60 degrees and perform passive glide at wrist level, then progressively towards arm at 90degrees. Pt reports pulling sensation at shoulder and elbow. PT-OP-R Modalities Start: 03/25/21 12:47 Freq: Status: Active Protocol: Document 05/09/21 12:00 DCW (Rec: 05/09/21 12:45 DCW [id number]) Hot Pack/Cold Pack Treatment Hot Pack Location Bilateral shoulders Patient Position Hooklying Treatment Duration (minutes) 10 PT-OP-T Assessment and Plan Start: 03/23/21 12:44 Freq: Status: Active Protocol: Document 05/09/21 12:00 DCW (Rec: 05/09/21 12:45 DCW [id number]) Physical Therapy Assessment Impairments Impairments Activity Tolerance,Functional Activities,Functional Mobility ,Pain,ROM,Soft Tissue Mobility ,Strength Goals Three Impairment Significant weakness in bilateral upper extremities ( less than 3/5) Waste Chopper Goal (LTG) Pt to increase bilateral upper extremity strength to at least 4-/5 in all planes to improve AROM of GH joints and allow pt to return to cooking in her kitchen without assistance. LTG Duration 06/22/21 Two Impairment Pt scores a significant disability of 88.64% on the QuickDASH Usp Goal (LTG) Pt to score <50% disability on QuickDASH to show improved UE function LTG Duration 06/22/21 One Impairment Pt does not have an appropriate home exercise program Short Term Goal (STG) Pt to be independent and compliant with an appropriate HEP STG Duration 04/22/21 Assessment Summary Assessment Pt having increased neuro symptoms, may be experiencing TOS, increased numbness and burning at night, Discussed positioning in chair prior to going to sleep to reduce night symptoms. Physical Therapy Plan Frequency and Duration Frequency of Treatment 2x/Week Duration of Treatment Three months Plan of Care Start Date 03/23/21 Plan of Care End Date 06/22/21 Therapeutic Interventions Therapeutic Interventions Home Exercise Program,Manual Therapy,Neuromuscular Re- education,Patient/Caregiver Education,Self-Care/Home Management,Soft Tissue Mobilization,Therapeutic Activities,Therapeutic Exercises Modalities Cold Pack/Ice Massage,Electric Stimulation,Hot Packs, Ultrasound Next Visit Focus/Plan Next Note Type Treatment Note Next Visit Plan Shoulder, cloth mercerizer operator, and wrist strengthening and ROM, gentle cervical ROM/strengthening
--- NOTE | 2021-05-20 15:15 | PT.OTN ---
Current Diagnoses Stiffness of right shoulder, not elsewhere classified (05/20/21) Stiffness of left shoulder, not elsewhere classified (05/20/21) Spinal stenosis, cervical region (05/20/21) Radiculopathy, cervical region (05/20/21) Muscle weakness (generalized) (05/20/21) Physical Therapy Treatment Note PT-OP-A Visit Information Start: 03/23/21 12:44 Freq: Status: Active Protocol: Document 05/20/21 14:30 DCW (Rec: 05/20/21 15:14 DCW [id number]) Out-Patient Physical Therapy Visit Information Visit Information Visit Type Treatment Note Visit Start Time 14:30 Visit Stop Time 15:20 Total Visit Minutes 50 Visit Number 7 Number of DIRECTOR OF MANUFACTURING Visits 0 Evaluation Information Evaluation Date 03/23/21 PT-OP-B Current Condition Start: 03/23/21 12:44 Freq: Status: Active Protocol: Document 03/23/21 12:00 DCW (Rec: 03/23/21 14:58 DCW [id number]) Current Condition History of Current Condition Onset Date 02/23/21 Current Complaints s/p C5-6/6-7 anterior cervical discectomy with arthrodesis History of Current Condition Pt is a 70 year old female presenting one month s/p anterior cervical discectomy and fusion. Pt had been experiencing severe radicular pain and weakness, L>R, with history of unsuccessful conservative treatment. Pt notes that she has been having difficulty since surgery, but admits that she has been seeing improvement. Pt's history is complicated by Parkinson's disease. Notes since she had surgery, she has had increased difficulty swallowing, but since she previously had speech therapy for Parkinson's, she knows a lot of tricks tto help this. Notes continued fuzziness along left median nerve pathway into left thumb, index , and middle fingers. Main complaint at this time is feeling of severe UE weakness. Notes she was able to do her hair for the first time today, she has been having getting her arms back behind her head. Has difficulty donning her pants, feels she does not have the strength to pull them up. Admits to be very hesitant to even try most activities, as she is worried about causing damage to her neck. Treatment Goals Patient/Caregiver Goals Pt wants to be able to do more in the kitchen, states that she tried to make eggs the other day, could not even lift guan with left hand to dump eggs on her plate. Personal Factors Other Personal Factors That May Effect Parkinson's disease Therapy/Recovery PT-OP-C Subjective Start: 03/23/21 12:44 Freq: Status: Active Protocol: Document 05/20/21 14:30 DCW (Rec: 05/20/21 15:14 DCW [id number]) OP-PT Subjective Patient Comments Patient Comments We have a couple of kinks to work out. My neck was so stiff last night, I didn't think I' d be able to come today. PT-OP-K Range of Motion Start: 03/23/21 12:44 Freq: Status: Active Protocol: Document 03/23/21 12:00 DCW (Rec: 03/23/21 15:05 DCW [id number]) Cervical Spine Range of Motion Cervical Spine Active Degrees Testing Position Sitting Flexion 45 Extension 15 Rotation Left 53 Rotation Right 54 Lateral Flexion Left 15 Lateral Flexion Right 25 ROM Limitations Soft Tissue Tightness,Bony Restriction Shoulder Goniometric Range of Motion Shoulder Right Active Shoulder ROM WFL No Testing Position Sitting Flexion 90 Abduction 105 External Rotation at 0 degrees Abduction 52 Internal Rotation Behind Back (text) T8 Left Active Shoulder ROM WFL No Testing Position Sitting Flexion 84 Abduction 80 External Rotation at 0 degrees Abduction 39 Internal Rotation Behind Back (text) T10 Shoulder ROM Limitations Shoulder ROM Limitations Muscle Weakness PT-OP-M Strength Start: 03/23/21 12:44 Freq: Status: Active Protocol: Document 03/23/21 12:00 DCW (Rec: 03/23/21 15:05 DCW [id number]) Shoulder Strength Shoulder Manual Muscle Testing Right Flexion 3- Fair- Abduction (C5) 3- Fair- External Rotation 3 Fair Internal Rotation 3- Fair- Left Flexion 2+ Poor+ Abduction (C5) 3- Fair- External Rotation 3- Fair- Internal Rotation 3- Fair- Hand Fruit Harvest Worker/Pinch Strength Hand Dominance Hand Dominance Right Hand Strength Left Fruit Harvest Worker (lbs) 5 Comments 3-trial average (5 lbs, 5 lbs, 5 lbs) Right Fruit Harvest Worker (lbs) 31.67 Comments 3-trial average (35 lbs, 35 lbs, 25 lbs) PT-OP-Q Treatments Start: 03/23/21 12:44 Freq: Status: Active Protocol: Document 05/20/21 14:30 DCW (Rec: 05/20/21 15:14 DCW [id number]) Cardio Equipment Upper Body Ergometer (UBE) Duration (Minutes) 2 RPM 60 Seat Position 14 Therapeutic Exercises Supine Exercises 4 Supine Exercise Name UE PNF D1/D2 flexion Side bilateral Sitting Exercises 2 Sitting Exercise Name PROM Pulleys - Flexion, Abduction Side bilateral Manual Therapy Treatment Soft Tissue Mobilization STMs Body Location suboccipitals,UT, suboccipital release Body Position Supine Comments T1-T4 extremely sensitive to touch but improved after. Nerve Glides shoulder decompression Nerve passive Comments pt reports pulling sensation at shoulders. median Body Position Supine Comments passive nerve glide. begins with arm abducted 60 degrees and perform passive glide at wrist level, then progressively towards arm at 90degrees. Pt reports pulling sensation at shoulder and elbow. PT-OP-R Modalities Start: 03/25/21 12:47 Freq: Status: Active Protocol: Document 05/20/21 14:30 DCW (Rec: 05/20/21 15:14 DCW [id number]) Hot Pack/Cold Pack Treatment Hot Pack Location Bilateral shoulders Patient Position Hooklying Treatment Duration (minutes) 10 PT-OP-T Assessment and Plan Start: 03/23/21 12:44 Freq: Status: Active Protocol: Document 05/20/21 14:30 DCW (Rec: 05/20/21 15:14 DCW [id number]) Physical Therapy Assessment Impairments Impairments Activity Tolerance,Functional Activities,Functional Mobility ,Pain,ROM,Soft Tissue Mobility ,Strength Goals Three Impairment Significant weakness in bilateral upper extremities ( less than 3/5) Snake Charmer Goal (LTG) Pt to increase bilateral upper extremity strength to at least 4-/5 in all planes to improve AROM of GH joints and allow pt to return to cooking in her kitchen without assistance. LTG Duration 06/22/21 Two Impairment Pt scores a significant disability of 88.64% on the QuickDASH Snake Charmer Goal (LTG) Pt to score <50% disability on QuickDASH to show improved UE function LTG Duration 06/22/21 One Impairment Pt does not have an appropriate home exercise program Short Term Goal (STG) Pt to be independent and compliant with an appropriate HEP STG Duration 04/22/21 Assessment Summary Assessment Pt notes that she has had a great improvement so far, but is worried that her remaining symptoms may just be due to her Parkinson's. Would like to continue therapy for a bit longer to see if there is any continued improvement, or if she needs to switch gears and try to focus more on Parkinson 's treatment. Physical Therapy Plan Frequency and Duration Frequency of Treatment 2x/Week Duration of Treatment Three months Plan of Care Start Date 03/23/21 Plan of Care End Date 06/22/21 Therapeutic Interventions Therapeutic Interventions Home Exercise Program,Manual Therapy,Neuromuscular Re- education,Patient/Caregiver Education,Self-Care/Home Management,Soft Tissue Mobilization,Therapeutic Activities,Therapeutic Exercises Modalities Cold Pack/Ice Massage,Electric Stimulation,Hot Packs, Ultrasound Next Visit Focus/Plan Next Note Type Treatment Note Next Visit Plan Shoulder, time signal wirer, and wrist strengthening and ROM, gentle cervical ROM/strengthening
--- NOTE | 2021-05-24 14:32 | PT.OTN ---
Current Diagnoses Stiffness of right shoulder, not elsewhere classified (05/24/21) Stiffness of left shoulder, not elsewhere classified (05/24/21) Spinal stenosis, cervical region (05/24/21) Radiculopathy, cervical region (05/24/21) Muscle weakness (generalized) (05/24/21) Physical Therapy Treatment Note PT-OP-A Visit Information Start: 03/23/21 12:44 Freq: Status: Active Protocol: Document 05/24/21 13:45 DCW (Rec: 05/24/21 14:32 DCW [id number]) Out-Patient Physical Therapy Visit Information Visit Information Visit Type Treatment Note Visit Start Time 13:45 Visit Stop Time 14:30 Total Visit Minutes 45 Visit Number 8 Number of SECURITY OPERATIONS CENTER ANALYST Visits 0 Evaluation Information Evaluation Date 03/23/21 PT-OP-B Current Condition Start: 03/23/21 12:44 Freq: Status: Active Protocol: Document 03/23/21 12:00 DCW (Rec: 03/23/21 14:58 DCW [id number]) Current Condition History of Current Condition Onset Date 02/23/21 Current Complaints s/p C5-6/6-7 anterior cervical discectomy with arthrodesis History of Current Condition Pt is a 70 year old female presenting one month s/p anterior cervical discectomy and fusion. Pt had been experiencing severe radicular pain and weakness, L>R, with history of unsuccessful conservative treatment. Pt notes that she has been having difficulty since surgery, but admits that she has been seeing improvement. Pt's history is complicated by Parkinson's disease. Notes since she had surgery, she has had increased difficulty swallowing, but since she previously had speech therapy for Parkinson's, she knows a lot of tricks tto help this. Notes continued fuzziness along left median nerve pathway into left thumb, index , and middle fingers. Main complaint at this time is feeling of severe UE weakness. Notes she was able to do her hair for the first time today, she has been having getting her arms back behind her head. Has difficulty donning her pants, feels she does not have the strength to pull them up. Admits to be very hesitant to even try most activities, as she is worried about causing damage to her neck. Treatment Goals Patient/Caregiver Goals Pt wants to be able to do more in the kitchen, states that she tried to make eggs the other day, could not even lift guan with left hand to dump eggs on her plate. Personal Factors Other Personal Factors That May Effect Parkinson's disease Therapy/Recovery PT-OP-C Subjective Start: 03/23/21 12:44 Freq: Status: Active Protocol: Document 05/24/21 13:45 DCW (Rec: 05/24/21 14:32 DCW [id number]) OP-PT Subjective Patient Comments Patient Comments Pt reports she is doing better today, but still having tingling in her fingers. PT-OP-K Range of Motion Start: 03/23/21 12:44 Freq: Status: Active Protocol: Document 03/23/21 12:00 DCW (Rec: 03/23/21 15:05 DCW [id number]) Cervical Spine Range of Motion Cervical Spine Active Degrees Testing Position Sitting Flexion 45 Extension 15 Rotation Left 53 Rotation Right 54 Lateral Flexion Left 15 Lateral Flexion Right 25 ROM Limitations Soft Tissue Tightness,Bony Restriction Shoulder Goniometric Range of Motion Shoulder Right Active Shoulder ROM WFL No Testing Position Sitting Flexion 90 Abduction 105 External Rotation at 0 degrees Abduction 52 Internal Rotation Behind Back (text) T8 Left Active Shoulder ROM WFL No Testing Position Sitting Flexion 84 Abduction 80 External Rotation at 0 degrees Abduction 39 Internal Rotation Behind Back (text) T10 Shoulder ROM Limitations Shoulder ROM Limitations Muscle Weakness PT-OP-M Strength Start: 03/23/21 12:44 Freq: Status: Active Protocol: Document 03/23/21 12:00 DCW (Rec: 03/23/21 15:05 DCW [id number]) Shoulder Strength Shoulder Manual Muscle Testing Right Flexion 3- Fair- Abduction (C5) 3- Fair- External Rotation 3 Fair Internal Rotation 3- Fair- Left Flexion 2+ Poor+ Abduction (C5) 3- Fair- External Rotation 3- Fair- Internal Rotation 3- Fair- Hand Fireman/Pinch Strength Hand Dominance Hand Dominance Right Hand Strength Left Fireman (lbs) 5 Comments 3-trial average (5 lbs, 5 lbs, 5 lbs) Right Fireman (lbs) 31.67 Comments 3-trial average (35 lbs, 35 lbs, 25 lbs) PT-OP-Q Treatments Start: 03/23/21 12:44 Freq: Status: Active Protocol: Document 05/24/21 13:45 DCW (Rec: 05/24/21 14:32 DCW [id number]) Cardio Equipment Upper Body Ergometer (UBE) Duration (Minutes) 2 RPM 60 Seat Position 14 Therapeutic Exercises Supine Exercises 4 Supine Exercise Name UE PNF D1/D2 flexion Side bilateral Manual Therapy Treatment Soft Tissue Mobilization STMs Body Location suboccipitals,UT, suboccipital release Body Position Supine Comments T1-T4 extremely sensitive to touch but improved after. Nerve Glides shoulder decompression Nerve passive Comments pt reports pulling sensation at shoulders. median Body Position Supine Comments passive nerve glide. begins with arm abducted 60 degrees and perform passive glide at wrist level, then progressively towards arm at 90degrees. Pt reports pulling sensation at shoulder and elbow. PT-OP-R Modalities Start: 03/25/21 12:47 Freq: Status: Active Protocol: Document 05/20/21 14:30 DCW (Rec: 05/20/21 15:14 DCW [id number]) Hot Pack/Cold Pack Treatment Hot Pack Location Bilateral shoulders Patient Position Hooklying Treatment Duration (minutes) 10 PT-OP-T Assessment and Plan Start: 03/23/21 12:44 Freq: Status: Active Protocol: Document 05/24/21 13:45 DCW (Rec: 05/24/21 14:32 DCW [id number]) Physical Therapy Assessment Impairments Impairments Activity Tolerance,Functional Activities,Functional Mobility ,Pain,ROM,Soft Tissue Mobility ,Strength Goals Three Impairment Significant weakness in bilateral upper extremities ( less than 3/5) Nursing Home Goal (LTG) Pt to increase bilateral upper extremity strength to at least 4-/5 in all planes to improve AROM of GH joints and allow pt to return to cooking in her kitchen without assistance. LTG Duration 06/22/21 Two Impairment Pt scores a significant disability of 88.64% on the QuickDASH Cutter Woodwind Reeds Goal (LTG) Pt to score <50% disability on QuickDASH to show improved UE function LTG Duration 06/22/21 One Impairment Pt does not have an appropriate home exercise program Short Term Goal (STG) Pt to be independent and compliant with an appropriate HEP STG Duration 04/22/21 Assessment Summary Assessment Pt requested skipping her hot pack today, noted she forgot to take her Parkinson's meds, and was having some increased tremors. Physical Therapy Plan Frequency and Duration Frequency of Treatment 2x/Week Duration of Treatment Three months Plan of Care Start Date 03/23/21 Plan of Care End Date 06/22/21 Therapeutic Interventions Therapeutic Interventions Home Exercise Program,Manual Therapy,Neuromuscular Re- education,Patient/Caregiver Education,Self-Care/Home Management,Soft Tissue Mobilization,Therapeutic Activities,Therapeutic Exercises Modalities Cold Pack/Ice Massage,Electric Stimulation,Hot Packs, Ultrasound Next Visit Focus/Plan Next Note Type Treatment Note Next Visit Plan Shoulder, dry cleaning attendant, and wrist strengthening and ROM, gentle cervical ROM/strengthening
--- NOTE | 2021-09-01 10:24 | PT.OPDS ---
Current Diagnoses Stiffness of right shoulder, not elsewhere classified (05/24/21) Stiffness of left shoulder, not elsewhere classified (05/24/21) Spinal stenosis, cervical region (05/24/21) Radiculopathy, cervical region (05/24/21) Muscle weakness (generalized) (05/24/21) Visit Care Team Role Provider Type Loyda Savage MD Primary Care Provider Physician Specialty: [facility] Address: [address] [place] [address], [place], [address] Email: [email or web address] Khushboo Jenkins DO Family Provider Physician Specialty: [facility] Address: [address] [place] [address], [address], [place], [address] Email: [email or web address] PA-C Attending Provider Non-Staff Referring Provider Specialty: Medical Address: [address] [place] [address], [address], [place], [address] Email: Visit Number Visit Number 8 Discharge Summary PT-OP-B Current Condition Start: 03/23/21 12:44 Freq: Status: Active Protocol: Document 03/23/21 12:00 DCW (Rec: 03/23/21 14:58 DCW [id number]) Current Condition History of Current Condition Onset Date 02/23/21 Current Complaints s/p C5-6/6-7 anterior cervical discectomy with arthrodesis History of Current Condition Pt is a 70 year old female presenting one month s/p anterior cervical discectomy and fusion. Pt had been experiencing severe radicular pain and weakness, L>R, with history of unsuccessful conservative treatment. Pt notes that she has been having difficulty since surgery, but admits that she has been seeing improvement. Pt's history is complicated by Parkinson's disease. Notes since she had surgery, she has had increased difficulty swallowing, but since she previously had speech therapy for Parkinson's, she knows a lot of tricks tto help this. Notes continued fuzziness along left median nerve pathway into left thumb, index , and middle fingers. Main complaint at this time is feeling of severe UE weakness. Notes she was able to do her hair for the first time today, she has been having getting her arms back behind her head. Has difficulty donning her pants, feels she does not have the strength to pull them up. Admits to be very hesitant to even try most activities, as she is worried about causing damage to her neck. Treatment Goals Patient/Caregiver Goals Pt wants to be able to do more in the kitchen, states that she tried to make eggs the other day, could not even lift guan with left hand to dump eggs on her plate. Personal Factors Other Personal Factors That May Effect Parkinson's disease Therapy/Recovery PT-OP-C Subjective Start: 03/23/21 12:44 Freq: Status: Active Protocol: Document 05/24/21 13:45 DCW (Rec: 05/24/21 14:32 DCW [id number]) OP-PT Subjective Patient Comments Patient Comments Pt reports she is doing better today, but still having tingling in her fingers. PT-OP-K Range of Motion Start: 03/23/21 12:44 Freq: Status: Active Protocol: Document 03/23/21 12:00 DCW (Rec: 03/23/21 15:05 DCW [id number]) Cervical Spine Range of Motion Cervical Spine Active Degrees Testing Position Sitting Flexion 45 Extension 15 Rotation Left 53 Rotation Right 54 Lateral Flexion Left 15 Lateral Flexion Right 25 ROM Limitations Soft Tissue Tightness,Bony Restriction Shoulder Goniometric Range of Motion Shoulder Right Active Shoulder ROM WFL No Testing Position Sitting Flexion 90 Abduction 105 External Rotation at 0 degrees Abduction 52 Internal Rotation Behind Back (text) T8 Left Active Shoulder ROM WFL No Testing Position Sitting Flexion 84 Abduction 80 External Rotation at 0 degrees Abduction 39 Internal Rotation Behind Back (text) T10 Shoulder ROM Limitations Shoulder ROM Limitations Muscle Weakness PT-OP-M Strength Start: 03/23/21 12:44 Freq: Status: Active Protocol: Document 03/23/21 12:00 DCW (Rec: 03/23/21 15:05 DCW [id number]) Shoulder Strength Shoulder Manual Muscle Testing Right Flexion 3- Fair- Abduction (C5) 3- Fair- External Rotation 3 Fair Internal Rotation 3- Fair- Left Flexion 2+ Poor+ Abduction (C5) 3- Fair- External Rotation 3- Fair- Internal Rotation 3- Fair- Hand Documentation Manager/Pinch Strength Hand Dominance Hand Dominance Right Hand Strength Left Documentation Manager (lbs) 5 Comments 3-trial average (5 lbs, 5 lbs, 5 lbs) Right Documentation Manager (lbs) 31.67 Comments 3-trial average (35 lbs, 35 lbs, 25 lbs) PT-OP-T Assessment and Plan Start: 03/23/21 12:44 Freq: Status: Active Protocol: Document 09/01/21 10:23 DCW (Rec: 09/01/21 10:24 DCW [id number]) Physical Therapy Assessment Assessment Summary Assessment Pt canceled last eight scheduled visits due to family issues, was hoping to reschedule at the start of the new year. Unfortunately, pt did not reschedule, has now not been seen in more than three months. Pt will be discharged from skilled PT at this time, will require a new referral in order to return Physical Therapy Plan Discharge Physical Therapy Discharge Reasons No Longer Attending PT Next Visit Focus/Plan Next Note Type Discharge Summary
== END 2021-09-05 13:52 ==
LOC: PHYS 13:45
PROVIDERS: Family Provider Family Medicine; PCP Family Medicine; Referring Provider Physician Assistant; Visit Provider Physician Assistant
DX: M54.12 Radiculopathy, cervical region (principal); M48.02 Spinal stenosis, cervical region; M25.612 Stiffness of left shoulder, not elsewhere classified; M25.611 Stiffness of right shoulder, not elsewhere classified; M62.81 Muscle weakness (generalized)
CPT/HCPCS: 97110; 97140; 97161

== ENCOUNTER 2021-06-27 08:08 | Day surgery (SDC) | payer MEDICARE, SELFPAY ==
[2021-06-27] VITALS (7 sets, daily range): BP systolic 141–177; BP diastolic 81–94; PULSE 83–91; RESP 10–18; TEMP 36–36.9; O2SAT 90–99; BMI 30.4
--- NOTE | 2021-06-27 | PATH_ITS ---
[facility] Accession Number: [id number] No. of containers..01 Tissue . 01 Material submitted: . colon - DESCENDING COLON POLYP . 02 Diagnosis: Descending Colon, Polyp, Biopsy: Tubular adenoma. MRV 07/04/2021 1130 Local . 02 Electronically signed: . Afshan Sanchez MD, Pathologist NPI- [id number] . 01 Gross description: . The specimen is received in formalin, labeled descending colon polyp and consists of a 0.3 x 0.2 x 0.2 cm castro-pink fragment of soft tissue which is entirely submitted in cassette A1. ([id number]) /MRV 06/29/2021 1440 Local . 02 Pathologist provided ICD-10: D12.4 . 02 CPT . 957275 Performed at: 01 [facility] [address] [id number] MD Trino Wheeler MD Phone: [phone] [facility]formed [facility]: [facility] [address] [place], [place] [id number] MD Afshan Sanchez MD Phone: [phone]
[2021-06-27] MEDS: LACTATED RINGERS 1,000 ML 84 ML IV (09:01)
[2021-06-27 09:06] LABS: COVID19 -Nasal RAPID Negative (Negative)
--- NOTE | 2021-06-27 09:33 | PM.HP.1 ---
History of Present Illness History of Present Illness Date Patient Seen: 06/27/21 Time Patient Seen: 09:33 Date of Onset of Symptoms: 06/27/21 Chief complaint: DX COLONOSCOPY Narrative: colon cancer screening using colonoscoy with moderate sedation Patient History Medical History (Updated 01/08/21 @ 16:48 by Khushboo Jenkins DO) Back pain Cervical radiculopathy Chronic cough Depression (03/24/11) Herniated cervical disc Parkinson's disease (06/18/14) Seasonal allergies Surgical History S/P cervical spinal fusion Status post lumbar spinal fusion Family & Social History Family History Father Parkinsons disease CAD (coronary artery disease) Mother Alzheimer's dementia CVA (cerebral infarction) Sister Melanoma Social History: household members spouse Tobacco & Substance use: Smoking Status Never smoker alcohol intake frequency holiday/special occasion Substance Use Type does not use Meds Home Medications and Allergies Home Medications Medication Instructions Recorded Confirmed Type carbidopa ER 50 mg-levodopa 200 mg 1 tab PO .COMPLEX 08/25/20 01/07/21 History tablet,extended release hydrocodone 7.5 mg-acetaminophen 1 tab PO Q4-6H PRN #120 tab 01/07/21 01/07/21 Rx 325 mg tablet lidocaine 5 % topical patch 1 patch TOPICAL DAILY #30 ea 01/07/21 01/07/21 Rx (Lidoderm) peg 3350-electrolytes 236 240 ml PO Q10M #4000 ml 06/07/21 Rx gram-22.74 gram-6.74 gram-5.86 gram solution (Golytely) Allergies Allergy/AdvReac Type Severity Reaction Status Date / Time epinephrine [EPINEPHRINE] AdvReac Unknown SENSITIVE Verified 06/27/21 08:51 Exam Vital Signs (past 8 hours): - 06/27/21 08:53 Temperature 96.8 F L Pulse Rate 83 Respiratory Rate 18 Blood Pressure 155/81 H Pulse Oximetry 99 Oxygen Delivery Method Room Air Narrative Exam Narrative: h/o colon polyps. Last scope was 5 years in [place] with [facility]. No symptoms. Const General: cooperative and healthy appearing Nutritional Appearance: well nourished [facility] Head: normocephalic and atraumatic Eyes General: appearance normal, both eyes and all related structures Sclera: sclerae normal Neck Neck: trachea midline Chest Chest: normal inspection of the chest Resp Effort & Inspection: normal respiratory effort and able to speak in complete sentences Cardio Rate: regular rate Rhythm: regular rhythm GI Inspection: normal to inspection Palpation: soft Neuro General: patient alert and patient oriented x3 Cognition: normal cognition Motor: tremor (head) Extrem General: normal to inspection Psych Appearance: grossly normal Judgment: judgment good Objective Labs Labs: Laboratory Results - last 24 hr 06/27/21 08:26 SARS-CoV-2 (PCR) Negative Assessment & Plan Assessment & Plan narrative: h/o colon polyps colonoscopy with moderate sedation. COVID-19 COVID-19 status: Negative Time Spent With Patient Critical Care time: I spent a total of [] minutes of critical care time on this patient's care today; this time is exclusive of procedural time.
[2021-06-27] MEDS: MIDAZOLAM 5 MG/5 ML VIAL IV (09:55)
[2021-06-27] MEDS: fentaNYL 250 MCG/5 ML INJ IV (09:55)
--- NOTE | 2021-06-27 10:06 | PM.OP.ENDO ---
Operative Date/Time/Diagnoses Date of procedure: 06/27/21 Time of procedure: 10:06 Pre-op diagnosis: h/o colon polyps Post-op diagnosis: same Procedure & Clinicians Study performed: Colonoscopy with cold forceps polypectomy Same procedure as scheduled: Yes Indications: History of colon polyps Surgeon: Marisol Andrew Procedure Notes SCOAP/Timeout: Done Procedure in detail: Preop diagnosis: History of colon polyps Postop diagnosis: Same Operative procedure: Colonoscopy with cold forceps polypectomy using moderate sedation Surgeon: Kendra Andrew MD Anesthetic: 175 micro g fentanyl, 7 mg Versed Sedation minutes: 19 Findings: diverticulosis and polyp Specimen(s): none sent Complications: none Impression: Large a moderate-size diverticuli throughout the colon. Descending colon polyp approximately 4 mm. Grade 2 hemorrhoids Post-procedure Recommendations: Colonscopy in 5 years Follow up: as needed Disposition: PACU
--- NOTE | 2021-06-27 10:17 | SUR.PHASEI ---
Pt arrives PACU breathing unassisted. Report recieved from Endo RN. Pt placed on 2 L O2 NC for sats of 89%.
== END 2021-06-27 11:10 | disposition home or self-care (01) ==
PROVIDERS: Family Provider Family Medicine; PCP Family Medicine; Referring Provider Surgery; Visit Provider Surgery
PROC: 0DJD8ZZ Inspection of Lower Intestinal Tract, Via Natural or Artificial Opening Endoscopic (ICD-10-PCS; CPT 45378; principal; 2021-06-27 10:00)
DX: Z12.11 Encounter for screening for malignant neoplasm of colon (principal); Z86.010 Personal history of colon polyps; Z20.822 Contact with and (suspected) exposure to COVID-19; G20 Parkinson's disease; K57.30 Diverticulosis of large intestine without perforation or abscess without bleeding; D12.4 Benign neoplasm of descending colon
CPT/HCPCS: 45380; 87635; 99152; J2250; J3010

== ENCOUNTER → 2021-08-02 17:13 | Outpatient (ROUT) | payer MEDICARE, SELFPAY ==
[2021-08-02 18:07] LABS: COVID19 - ADMIT (NP swab/PCR) Negative (Negative)
== END ==
PROVIDERS: Family Provider Family Medicine; PCP Family Medicine; Visit Provider Family Medicine
DX: Z20.822 Contact with and (suspected) exposure to COVID-19 (principal)
CPT/HCPCS: U0003

== ENCOUNTER 2021-12-28 12:22 | Emergency (ER) | payer MEDICARE, SELFPAY ==
[2021-12-28 12:24] VITALS: BP 148/72; PULSE 88; RESP 13; TEMP 36.1; O2SAT 97; BMI 29.5
--- NOTE | 2021-12-28 12:29 | DI.RAD.S_ITS ---
PROCEDURE: XR CHEST 2V INDICATIONS: cough and back pain TECHNIQUE: 2 views of the chest were acquired. COMPARISON: [facility], [facility], XR CHEST 2V, 07/27/2020, 10:48. FINDINGS: Surgical changes and devices: Lower cervical spine fusion. Lungs and pleura: Lungs are clear. No pleural effusions or pneumothorax. Mediastinum: Mediastinal contours are normal. Heart size is normal. Bones and chest wall: No suspicious bony abnormalities. Soft tissues appear unremarkable. IMPRESSION: No acute cardiopulmonary disease. Dictated by: Roberto Lui M.D. on 12/28/2021 at 12:55 Approved by: Roberto Lui M.D. on 12/28/2021 at 12:55
[2021-12-28 13:52] LABS: Adenovirus Not Detected (Not Detect); B. parapertussis Not Detected (Not Detecte); Bordetella pertussis Not Detected (Not Detecte); Chlamydophila pneumoniae Not Detected (Not Detect); Coronavirus 229E Not Detected (Not Detect); Coronavirus HKU1 Not Detected (Not Detect); Coronavirus NL 63 Not Detected (Not Detect); Coronavirus OC43 Not Detected (Not Detect); Human Metapneumovirus Not Detected (Not Detect); Human Rhinovirus/Enterovirus Detected (Not Detect); Influenza A Not Detected (Not Detect); Influenza B Not Detected (Not Detect); Mycoplasma pneumoniae Not Detected (Not Detect); Parainfluenza Virus 1 Not Detected (Not Detect); Parainfluenza Virus 2 Not Detected (Not Detect); Parainfluenza Virus 3 Not Detected (Not Detect); Parainfluenza Virus 4 Not Detected (Not Detect); Respiratory Syncytial Virus Not Detected (Not Detect); SARS- CoV-2 Not Detected (Not Detecte)
--- NOTE | 2021-12-28 15:42 | ED_ITS ---
HPI - URI/Sore Throat <ASHLIE Alonso - Last Filed: 12/28/21 15:50> General Chief Complaint: Upper Respiratory Symptoms Stated Complaint: NASTY COUGH 10DAYS BACK AND CHEST HURTS Time Seen by Provider: 12/28/21 14:12 Source: patient Mode of arrival: Ambulatory History of Present Illness HPI Narrative: This is a 71-year-old female with history of Parkinson's disease presents to the emergency department with 10 days of cough, congestion in midthoracic back pain which patient states comes and goes. She denies any fevers, denies any shortness of breath or difficulty breathing, states that she feels fatigued, and that she is not getting over a cold. Patient states that approximately three weeks ago, her had pneumonia, was treated with antibiotics and improved. Patient is fearful that she might have pneumonia or something similar. She denies any nausea vomiting, denies any new orthopnea, shortness of breath with exertion, wheezing, or difficulty breathing. Related Data Home Medications Medication Instructions Recorded Confirmed carbidopa ER 50 mg-levodopa 200 mg 1 tab PO .COMPLEX 08/25/20 01/07/21 tablet,extended release Previous Rx's Medication Instructions Recorded hydrocodone 7.5 mg-acetaminophen 1 tab PO Q4-6H PRN pain #120 tabs 01/07/21 325 mg tablet lidocaine 5 % topical patch 1 patch topical DAILY #30 ea 01/07/21 (Lidoderm) peg 3350-electrolytes 236 240 ml PO Q10M #4,000 mL 06/07/21 gram-22.74 gram-6.74 gram-5.86 gram solution (Golytely) Allergies Allergy/AdvReac Type Severity Reaction Status Date / Time epinephrine [EPINEPHRINE] AdvReac Unknown SENSITIVE Verified 12/28/21 12:24 Review of Systems <ASHLIE Alonso - Last Filed: 12/28/21 15:50> Review of Systems Narrative: General: denies fever, chills Head/Neck: denies headache, neck pain Eyes: denies visual changes, eye pain Cardio: denies chest pain, palpitations Respiratory: denies shortness of breath, endorses congestion and a productive cough at times GI: denies abdominal pain, nausea, vomiting, or diarrhea : denies dysuria, hematuria or flank pain MSK: denies new joint pain, muscle weakness or swelling Skin: denies rash, itching or wound Neuro: denies numbness, tingling, dizziness Patient History <ASHLIE Alonso - Last Filed: 12/28/21 15:50> Medical History Back pain Cervical radiculopathy Chronic cough Depression (03/24/11) Herniated cervical disc Parkinson's disease (06/18/14) Seasonal allergies Surgical History S/P cervical spinal fusion Status post lumbar spinal fusion Family History Father Parkinsons disease CAD (coronary artery disease) Mother Alzheimer's dementia CVA (cerebral infarction) Sister Melanoma Social History household members: spouse Smoking Status: Never smoker Smoking Status: Never smoker alcohol intake frequency: holidays/special occasions only Substance Use Type: does not use Exam <ASHLIE Alonso - Last Filed: 12/28/21 15:50> Narrative Exam Narrative: Independently reviewed vitals signs and nursing notes. General: cooperative, comfortable, in no acute distress, well groomed Head: atraumatic, symmetrical facial expressions Neck: supple Eyes: equal round and reactive, EOMI, conjunctiva normal Nose: nares patent, no rhinorrhea Mouth/Throat: moist mucus membranes Cardiovascular: regular rate and rhythm, no peripheral edema, warm extremities Respiratory: normal effort, able to speak in complete sentences, no audible wheezing, stridor, or rales. No retractions or tachypnea. No increased respiratory effort, incentive spirometer teaching was accomplished by respiratory therapy, patient able to pull adequate volumes around 1800. Discussed importance of using for pneumonia prevention GI: abdomen soft, nontender to palpation, nondistended, no masses, no exquisite tenderness with exam, without guarding or rebound. MSK: moves all extremities, neurovascularly intact, no weakness, normal tone Skin: brisk capillary refill, no rash, no erythema Neuro: normal speech and cognition, A&O x3 Psych: mental status is grossly normal, congruent mood, normal affect, pleasant and cooperative Initial Vital Signs Initial Vital Signs: Vital Signs Temperature 97.0 F L 12/28/21 12:24 Pulse Rate 88 12/28/21 12:24 Respiratory Rate 13 12/28/21 12:24 Blood Pressure 148/72 H 12/28/21 12:24 Pulse Oximetry 97 12/28/21 12:24 Oxygen Delivery Method 12/28/21 12:24 <Anel Weinstein DO - Last Filed: 12/29/21 07:26> Initial Vital Signs Initial Vital Signs: Vital Signs Temperature 97.0 F L 12/28/21 12:24 Pulse Rate 88 12/28/21 12:24 Respiratory Rate 13 12/28/21 12:24 Blood Pressure 148/72 H 12/28/21 12:24 Pulse Oximetry 97 12/28/21 12:24 Oxygen Delivery Method 12/28/21 12:24 Course <JULIET AlonsoP - Last Filed: 12/28/21 15:50> Orders Ordered: ED Orders 12/28/21 12:29 Chest [XR chest 2V] Stat 12/28/21 12:56 Respiratory Panel (Film Array) Stat Vital Signs Vital signs: Vital Signs - 8 hr 12/28/21 12:24 Temperature 97.0 F L Pulse Rate 88 Respiratory Rate 13 Blood Pressure 148/72 H Pulse Oximetry 97 Oxygen Delivery Method Room Air <Anel Weinstein DO - Last Filed: 12/29/21 07:26> Orders Ordered: ED Orders 12/28/21 12:29 Chest [XR chest 2V] Stat 12/28/21 12:56 Respiratory Panel (Film Array) Stat Vital Signs Vital signs: Vital Signs - 8 hr 12/28/21 12:24 Temperature 97.0 F L Pulse Rate 88 Respiratory Rate 13 Blood Pressure 148/72 H Pulse Oximetry 97 Oxygen Delivery Method Room Air MDM - URI/Sore Throat <ASHLIE Alonso - Last Filed: 12/28/21 15:50> Lab Data Labs: Lab Results 12/28/21 Range/Units 12:56 Chlamy pneumoniae PCR Not detected (Not Detect) Adenovirus (PCR) Not detected (Not Detect) B. pertussis DNA (PCR) Not detected (Not Detecte) B.parapertussis DNA PCR Not detected (Not Detecte) Coronavirus OC43 (PCR) Not detected (Not Detect) Coronavirus HKU1 (PCR) Not detected (Not Detect) Coronavirus 229E (PCR) Not detected (Not Detect) SARS-CoV-2 (PCR) Not detected (Not Detecte) Coronavirus NL63 (PCR) Not detected (Not Detect) Human Metapneumovir PCR Not detected (Not Detect) Influenza Type A (PCR) Not detected (Not Detect) Influenza Type B (PCR) Not detected (Not Detect) M. pneumoniae (PCR) Not detected (Not Detect) Parainfluenza 1 (PCR) Not detected (Not Detect) Parainfluenza 2 (PCR) Not detected (Not Detect) Parainfluenza 3 (PCR) Not detected (Not Detect) Parainfluenza 4 (PCR) Not detected (Not Detect) RSV (PCR) Not detected (Not Detect) Entero/Rhino (PCR) Detected H (Not Detect) Imaging Data Chest x-ray: Radiologist's Impression: PROCEDURE:? XR CHEST 2V ? INDICATIONS:? cough and back pain ? TECHNIQUE:? 2 views of the chest were acquired.? ? COMPARISON:? [facility], , XR CHEST 2V, 07/27/2020, 10:48. ? FINDINGS:? ? Surgical changes and devices:? Lower cervical spine fusion.? ? Lungs and pleura:? Lungs are clear.? No pleural effusions or pneumothorax.? ? Mediastinum:? Mediastinal contours are normal.? Heart size is normal.? ? Bones and chest wall:? No suspicious bony abnormalities.? Soft tissues appear unremarkable.? ? IMPRESSION:? No acute cardiopulmonary disease. ? ? Dictated by: Roberto Lui M.D. on 12/28/2021 at 12:55 ? ? Approved by: Roberto Lui M.D. on 12/28/2021 at 12:55 ? MDM Narrative Medical decision making narrative: This is a 71-year-old female presents to the emergency department with 10 days of upper respiratory congestion, cough, runny nose, and muscle aches in her midthoracic back. Today she tested positive via PCR for rhino virus, no other viruses were positive on her respiratory panel. Chest x-ray was negative for acute cardiopulmonary disease, on exam, patient does have tremors consistent with her Parkinson's disease, she appears slightly fatigued but does not have any abnormal breath sounds, increased respiratory effort, hypoxia, diminished breath sounds, chest pain, new peripheral edema, or any abnormal sign or symptom at this time. She is afebrile, without tachycardia tachypnea, as she was taught how to use an incentive spirometer, pulled 1800 cc volumes, discussed importance of using this daily and every hour at least 5 times to help prevent secretions from accumulating in her lower airways. Marybel patient to treat her symptoms with [id number] allergy medication like Claritin and/or Flonase, Tylenol, ibuprofen if it is helpful for her, and resting as needed. Encouraged her to stay lightly active and to not be too sedentary so that she does not get too stiff. Encourage patient to return to the emergency department for any new or worsening symptoms, progressive shortness of breath or fever. Patient is appropriate and amenable to discharge home. Vital signs are stable on repeat examination is unremarkable. Patient has been informed of results. Patient has been given strict return to ER precautions for any new or worsening symptoms. Patient understands to follow up closely with outpatient providers as instru cted. Patient understands plan and agrees to discharge home. All questions and concerns answered at this time. <Anel Weinstein, DO - Last Filed: 12/29/21 07:26> Lab Data Labs: Lab Results 12/28/21 Range/Units 12:56 Chlamy pneumoniae PCR Not detected (Not Detect) Adenovirus (PCR) Not detected (Not Detect) B. pertussis DNA (PCR) Not detected (Not Detecte) B.parapertussis DNA PCR Not detected (Not Detecte) Coronavirus OC43 (PCR) Not detected (Not Detect) Coronavirus HKU1 (PCR) Not detected (Not Detect) Coronavirus 229E (PCR) Not detected (Not Detect) SARS-CoV-2 (PCR) Not detected (Not Detecte) Coronavirus NL63 (PCR) Not detected (Not Detect) Human Metapneumovir PCR Not detected (Not Detect) Influenza Type A (PCR) Not detected (Not Detect) Influenza Type B (PCR) Not detected (Not Detect) M. pneumoniae (PCR) Not detected (Not Detect) Parainfluenza 1 (PCR) Not detected (Not Detect) Parainfluenza 2 (PCR) Not detected (Not Detect) Parainfluenza 3 (PCR) Not detected (Not Detect) Parainfluenza 4 (PCR) Not detected (Not Detect) RSV (PCR) Not detected (Not Detect) Entero/Rhino (PCR) Detected H (Not Detect) Discharge Plan Departure Patient Disposition: Home Clinical Impression: Rhinovirus infection Instructions: DI for Viral Upper Respiratory Infection -- Adult Activity Restrictions/Additional Instructions: *You have been diagnosed with an upper respiratory viral called rhino virus. Sometimes this does cause nausea and vomiting, hopeful your over that home and this does not happen to you. For nasal congestion, try Claritin or Flonase, this will help reduce any postnasal drip causing thick mucus. If you are having a productive cough which is difficult to clear, please try Mucinex to help thin the mucus. Please stay hydrated, drink plenty of electrolyte fluids, support your body and rest as needed. Continue throat lozenges as long as you don't have any difficulty swallowing, if you have any worsening shortness of breath, spike a fever, have any worsening of your cough, chills or feeling worse, please come back to the emergency department for another evaluation. Please use your incentive spirometer every hour while awake at least 3-5 times. This will help prevent fluid from settling in your lungs and causing pneumonia. Use Tylenol, lidocaine patches, other pain medication as needed to help treat your back pain. If that gets worse, and you start feeling increasing fatigue, please come back in for another evaluation. *What to do: *Please continue to take your regular medications as directed. [ ] New medication prescriptions sent to your pharmacy: [ ] [ ] New medication written as a paper prescription [x ] No new medications given *Please follow up with your primary care provider in 2-3 days, call for an appointment. Let them know you were seen in the Emergency Department and that we asked that you be seen for follow-up. We will electronically transmit a record of today's note if your PCP is in our system *If you do not have a primary care provider please contact [phone] to establish care with one of the [facility] primary care providers. *Return to Emergency Department if you should have any new, worsening or concerning symptoms, such as [fever greater than 101F, chills, worsening pain, persistent vomiting or other bothersome symptoms] Prescriptions: No Action peg 3350-electrolytes [Golytely] 236-22.74-6.74 -5.86 gram recon soln 240 ml PO Q10M Qty: 4000 0RF Rx Instructions: until fecal effluent is clear carbidopa-levodopa 50-200 mg tablet extended release 1 tab PO .COMPLEX Rx Instructions: Morning, dinner, 1/2 tab at bedtime hydrocodone-acetaminophen 7.5-325 mg tablet 1 tab PO Q4-6H PRN (Reason: pain) Qty: 120 0RF lidocaine [Lidoderm] 5 % adhesive patch,medicated 1 patch topical DAILY Qty: 30 0RF Rx Instructions: leave on most painful area for up to 12 hrs Referrals: Loyda Savage MD [Primary Care Provider] - Visit Report Forms: Patient Portal/API <Anel Weinstein DO - Last Filed: 12/29/21 07:26> Cosign ED Attending Cosmaverickature Attestation: I was immediately available in the department for consultation. Documentation has been reviewed. I agree with assessment and plan.
== END 2021-12-28 14:56 | disposition home or self-care (01) ==
PROVIDERS: Emergency Medicine; Emergency Provider Nurse Practitioner Critical Care Medicine; Family Provider Family Medicine; PCP Family Medicine
DX: B34.8 Other viral infections of unspecified site (principal); M54.6 Pain in thoracic spine; G20 Parkinson's disease; Z20.822 Contact with and (suspected) exposure to COVID-19
CPT/HCPCS: 71046; 87633; 99281; 99283

== ENCOUNTER → 2024-04-13 09:50 | Outpatient (CLI) | payer MEDICARE, SELFPAY ==
--- NOTE | 2024-04-13 | DI.MRI.S_ITS ---
PROCEDURE: MR CERVICAL SPINE WO CON INDICATIONS: DEGENERATIVE DISC DISEASE,CERVICAL RADICULOPATHY TECHNIQUE: Noncontrast sagittal T1 spin echo and T2 fast spin echo, sagittal STIR, foraminal oblique sagittal T2 fast spin echo, and axial gradient echo or T2 fast spin echo through the cervical spine. COMPARISON: [facility], MR, MR CERVICAL SPINE WO CON, 01/12/2021, 15:34. FINDINGS: Image quality: Excellent. Alignment and Curvature: There is normal bony alignment. Bone Marrow: Fusion of the C4 and C5 vertebral bodies. Interval C5 through C7 ACDF hardware. Multilevel degenerative endplate changes. Marrow demonstrates normal overall signal. Spinal Cord: Visualized spinal cord has normal size and signal. No cerebellar tonsillar herniation. Paraspinous Soft Tissues: No paravertebral masses. Prevertebral soft tissues are normal in thickness. C2-C3: Disc desiccation. No central canal or neural foraminal stenosis. C3-C4: Disc desiccation and moderate disc height loss. Posterior disc osteophyte complex with effacement of CSF space. Moderate to severe central canal stenosis. Severe bilateral neural foraminal stenosis. C4-C5: Fusion of the vertebral bodies. No central canal stenosis. Facet and uncovertebral arthropathy. Moderate bilateral neural foraminal stenosis is similar to prior. C5-C6: Postoperative changes. No significant central canal stenosis. Facet and uncovertebral arthropathy. Severe left neural foraminal stenosis. Moderate to severe right neural foraminal stenosis. C6-C7: ACDF. No central canal stenosis. Facet and uncovertebral arthropathy. Severe bilateral neural foraminal stenosis. C7-T1: No central canal or neural foraminal stenosis. IMPRESSION: 1. Multilevel degenerative changes of the cervical spine as described above status post interval C5 through C7 ACDF. 2. Progression of degenerative changes at C3-C4 with moderate to severe central canal stenosis and severe bilateral neural foraminal stenosis. 3. Resolution of central canal stenosis at C5-C6 and C6-C7. 4. Multilevel high-grade neural foraminal stenosis is similar to prior as above. Dictated by: Donato Almaguer M.D. on 04/14/2024 at 14:25 Approved by: Donato Almaguer M.D. on 04/14/2024 at 14:30
== END ==
LOC: MRI 09:52
PROVIDERS: Family Provider Family Medicine; PCP Family Medicine; Referring Provider Family Medicine; Visit Provider Family Medicine
DX: M47.22 Other spondylosis with radiculopathy, cervical region (principal); M50.11 Cervical disc disorder with radiculopathy, high cervical region; M48.02 Spinal stenosis, cervical region; Z98.1 Arthrodesis status
CPT/HCPCS: 72141

== ENCOUNTER 2024-12-16 11:30 | Outpatient (RCR) | payer MEDICARE, SELFPAY ==
--- NOTE | 2024-11-18 17:31 | PT.OIE ---
Current Diagnoses Spinal stenosis, cervical region (11/18/24) Radiculopathy, cervical region (11/18/24) Past Medical History (Last Reviewed 12/28/21 @ 15:45 by ASHLIE Alonso) Back pain Cervical radiculopathy Chronic cough Depression (03/24/11) Herniated cervical disc Parkinson's disease (06/18/14) Seasonal allergies Past Surgical History (Last Reviewed 12/28/21 @ 15:45 by ASHLIE Alonso) S/P cervical spinal fusion Status post lumbar spinal fusion Visit Care Team Role Provider Type Loyda Savage MD Family Provider Physician Primary Care Provider Specialty: Family Practice Address: [address] [place] [address], [facility] [place], [place], [facility] Email: [email or web address] Rufino Brower PA-C Attending Provider Non-Staff Referring Provider Specialty: Medical Address: [address] [place] [address] [address], [place], [facility] Email: Physical Therapy Initial Evaluation PT-OP-A Visit Information Start: 11/17/24 08:04 Freq: Status: Active Protocol: Document 11/18/24 15:21 [facility] (Rec: 11/18/24 16:14 [facility] [id number]) Out-Patient Physical Therapy Visit Information Visit Information Visit Type Initial Evaluation Visit Note Student PT Irma Bell participated in treatment session w/PT direct supervision and direction Visit Start Time 15:23 Visit Stop Time 16:07 Visit Number 1 Number of INTERVENTIONAL RADIOLOGY RN Visits 0 PT-OP-B Current Condition Start: 11/17/24 08:04 Freq: Status: Active Protocol: Document 11/18/24 15:21 [facility] (Rec: 11/18/24 16:14 [facility] [id number]) Current Condition History of Current Condition Onset Date October 01 Current Complaints C3-4 ACDF w/past C4-7 ACDF History of Current Condition Pt reports she had DDD. This was her 6th surgery in September. She has Parkinsons, has vertigo a lot and does epleys and sometimes that works and sometimes it doesn't. Hurts . She is worried she isn't healing as fast as she should. She has twitches and catches in neck. It feels like her neck is shorter than it was before surgery. She wears a soft collar when it is bugging her. 3 neck surgeries and 3 LB surgeries. Reports knees are bone on bone so knows she needs that surgery. Can't walk d/t her knees even though she knows that is valuable in her neck recovery even with a walker. notes KIMBALL up the back of her neck the past couple of days. Denies lightheadedness or dizziness or UE pain. Has to use UEs to get up to a full stand d/t knee pain. Cleared from restrictions. Allowed 20lbs and gradually inc. Goes back end of November to see doctor . occasionally has trouble swallowing. Notes she thinks that is from the Parkinsons and worked on swallowing in the past. Slight voice changes since the surgery. can't bend over d/t vertigo when bending over. Treatment Goals Patient/Caregiver Goals neck not to hurt, build up the muscles of neck PT-OP-C Subjective Start: 11/17/24 08:04 Freq: Status: Active Protocol: Document 11/18/24 15:21 [facility] (Rec: 11/18/24 16:14 [facility] [id number]) OP-PT Pain Assessment Location neck pain Pain Location Details B sides and into scap region L >R (mostly post) Scale Used 4/10 constant, 6/10 worst Description- Other catches, fatigue Frequency Constant Radiating Location post head Other Pain Aggravating Factors look down, turning head,sit watch TV extended Pain Alleviating Factors Cold,Heat Other Pain Alleviating Factors cervical collar, lay down, mm relaxor PT-OP-F Manual Assessment Start: 11/17/24 08:04 Freq: Status: Active Protocol: Document 11/18/24 15:21 [facility] (Rec: 11/18/24 16:14 [facility] [id number]) Manual Assessments Soft Tissue Assessment Soft Tissue Mobility Assessment tightness L>R UT, LS, scalenes , rhomboids, thoracic paraspinals, SO PT-OP-J Posture/Palpation/Skin Start: 11/17/24 08:04 Freq: Status: Active Protocol: Document 11/18/24 15:21 [facility] (Rec: 11/18/24 16:14 [facility] [id number]) Posture Evaluation Comments Posture Comments inc kyphosis, dowager's hump, fwd head, ant tipped and abd scap PT-OP-K Range of Motion Start: 11/17/24 08:04 Freq: Status: Active Protocol: Document 11/18/24 15:21 [facility] (Rec: 11/18/24 16:14 [facility] [id number]) Cervical Spine Range of Motion Cervical Spine Active Degrees Flexion 35 Extension 14 Rotation Left 43 Rotation Right 41 Lateral Flexion Left 16 Lateral Flexion Right 30 ROM Limitations Pain Comments Pain L UT region after ROM PT-OP-L Special Tests Start: 11/17/24 08:04 Freq: Status: Active Protocol: Document 11/18/24 15:21 [facility] (Rec: 11/18/24 16:14 [facility] [id number]) Special Tests Cervical Spine Special Tests arterial screen Test Results normal cranial n screen (dec hearing and vision(hearing aides and glasses)) Comments WNL auscultation of heart and carotid, BP 156/88 PT-OP-M Strength Start: 11/17/24 08:04 Freq: Status: Active Protocol: Document 11/18/24 15:21 [facility] (Rec: 11/18/24 16:14 [facility] [id number]) Cervical Spine Strength Cervical Spine Manual Muscle Testing Testing Position Sitting Flexion (C1-2) 4 Good Extension 4 Good Rotation Left 4 Good Rotation Right 4 Good Lateral Flexion Left (C3) 3+ Fair+ Lateral Flexion Right (C3) 4+ Good+ Comments pain Ext, flex, L SB and rot PT student tested Myotomes testin/5 R , 4/5 L PT-OP-Q Treatments Start: 11/17/24 08:04 Freq: Status: Active Protocol: Document 11/18/24 15:21 [facility] (Rec: 11/18/24 16:14 [facility] [id number]) Therapeutic Exercises Sitting Exercises stretch Sitting Exercise Name UT pulling on opp hand Side bilateral Reps/Minutes 30 sec Comments attempted other options but pulling w/opp arm worked best for stretch chin tuck Reps/Minutes 5sec x15 Standing Exercises row Side bilateral Equipment Used L2 Reps/Minutes 15 Comments cues scap retraction PT-OP-T Assessment and Plan Start: 11/17/24 08:04 Freq: Status: Active Protocol: Document 11/18/24 15:21 [facility] (Rec: 11/18/24 16:14 [facility] [id number]) Physical Therapy Assessment Rehab Potential Rehabilitation Potential Good Evaluation Complexity Number of Personal Factors/Comorbidities 3 or More Number of Body Systems Impaired 4 or More Clinical Presentation at Evaluation Evolving Impairments Impairments Activity Tolerance,Functional Activities,Functional Mobility ,Pain,Posture,ROM,Soft Tissue Mobility,Strength Goals pain Custodial Goal (LTG) Pt will report daily pain no greater than 2/10 for at least 1 week LTG Duration 01/20 NDI Impairment 38% w/collar use Short Term Goal (STG) Pt will score no greater than 28% on NDI to show improved functional ability STG Duration 12/21 Custodial Goal (LTG) Pt will score no greater than 10% on NDI to show improved functional ability LTG Duration 01/27 strength Short Term Goal (STG) Pt will be indep w/HEP STG Duration 12/21 Custodial Goal (LTG) Pt will score at least 4+/5 on all cervical MMT in order to allow her to keep her head up for longer periods during the day w/o pain. LTG Duration 01/27 Assessment Summary Assessment Pt presents after C3-4 ACDF on 10/01 w/hx of C4-7 fusions also with c/o neck pain, and fatigue during the day. She does have dec cervical stability and impaired postural and dec ROM although she is progressing well given how many fusions she had. She also has hx of multiple back surgeries. Pt does report dizziness when bending over so may require further vestibular assessment and treatment re: this. She would benefit from skilled PT to cont to work on improving tolerance to upright positioning, improve cervical mobility and strength and dec pain. Physical Therapy Plan Frequency and Duration Frequency of Treatment 2x/Week Duration of treatment (weeks) 10 Plan of Care Start Date 11/18/24 Plan of Care End Date 01/27/25 Therapeutic Interventions Therapeutic Interventions Canalithic Repositioning,Home Exercise Program,Joint Mobilizations,Manual Therapy, Neuromuscular Re-education, Patient/Caregiver Education, Self-Care/Home Management,Soft Tissue Mobilization,Taping, Therapeutic Activities, Therapeutic Exercises Modalities Cold Pack/Ice Massage,Electric Stimulation,Hot Packs, Infrared Therapy,Ultrasound Next Visit Focus/Plan Next Note Type Treatment Note Next Visit Plan cervical isometrics, review exercises, wall posture, open book, manual to neck gently.
--- NOTE | 2024-11-18 17:31 | PT.OPPOC ---
Physical, Occupational & Speech Therapy At [facility] Current Diagnoses Spinal stenosis, cervical region (11/18/24) Radiculopathy, cervical region (11/18/24) Visit Care Team Role Provider Type Loyda Savage MD Family Provider Physician Primary Care Provider Specialty: Family Practice Address: [address] [place] [address], [address], [place], [address] Email: [email or web address] Rufino Brower PA-C Attending Provider Non-Staff Referring Provider Specialty: Medical Address: [address] [place] [address], [address], [place], [address] Email: Plan Of Care PT-OP-B Current Condition Start: 11/17/24 08:04 Freq: Status: Active Protocol: Document 11/18/24 15:21 [facility] (Rec: 11/18/24 16:14 [facility] [id number]) Current Condition History of Current Condition Onset Date October 01 Current Complaints C3-4 ACDF w/past C4-7 ACDF History of Current Condition Pt reports she had DDD. This was her 6th surgery in September. She has Parkinsons, has vertigo a lot and does epleys and sometimes that works and sometimes it doesn't. Hurts . She is worried she isn't healing as fast as she should. She has twitches and catches in neck. It feels like her neck is shorter than it was before surgery. She wears a soft collar when it is bugging her. 3 neck surgeries and 3 LB surgeries. Reports knees are bone on bone so knows she needs that surgery. Can't walk d/t her knees even though she knows that is valuable in her neck recovery even with a walker. notes KIMBALL up the back of her neck the past couple of days. Denies lightheadedness or dizziness or UE pain. Has to use UEs to get up to a full stand d/t knee pain. Cleared from restrictions. Allowed 20lbs and gradually inc. Goes back end of November to see doctor . occasionally has trouble swallowing. Notes she thinks that is from the Parkinsons and worked on swallowing in the past. Slight voice changes since the surgery. can't bend over d/t vertigo when bending over. Treatment Goals Patient/Caregiver Goals neck not to hurt, build up the muscles of neck PT-OP-T Assessment and Plan Start: 11/17/24 08:04 Freq: Status: Active Protocol: Document 11/18/24 15:21 [facility] (Rec: 11/18/24 16:14 [facility] [id number]) Physical Therapy Assessment Rehab Potential Rehabilitation Potential Good Evaluation Complexity Number of Personal Factors/Comorbidities 3 or More Number of Body Systems Impaired 4 or More Clinical Presentation at Evaluation Evolving Impairments Impairments Activity Tolerance,Functional Activities,Functional Mobility ,Pain,Posture,ROM,Soft Tissue Mobility,Strength Goals pain Transcription Manager Goal (LTG) Pt will report daily pain no greater than 2/10 for at least 1 week LTG Duration 01/20 NDI Impairment 38% w/collar use Short Term Goal (STG) Pt will score no greater than 28% on NDI to show improved functional ability STG Duration 12/21 Transcription Manager Goal (LTG) Pt will score no greater than 10% on NDI to show improved functional ability LTG Duration 01/27 strength Short Term Goal (STG) Pt will be indep w/HEP STG Duration 12/21 Residential Goal (LTG) Pt will score at least 4+/5 on all cervical MMT in order to allow her to keep her head up for longer periods during the day w/o pain. LTG Duration 01/27 Assessment Summary Assessment Pt presents after C3-4 ACDF on 10/01 w/hx of C4-7 fusions also with c/o neck pain, and fatigue during the day. She does have dec cervical stability and impaired postural and dec ROM although she is progressing well given how many fusions she had. She also has hx of multiple back surgeries. Pt does report dizziness when bending over so may require further vestibular assessment and treatment re: this. She would benefit from skilled PT to cont to work on improving tolerance to upright positioning, improve cervical mobility and strength and dec pain. Physical Therapy Plan Frequency and Duration Frequency of Treatment 2x/Week Duration of treatment (weeks) 10 Plan of Care Start Date 11/18/24 Plan of Care End Date 01/27/25 Therapeutic Interventions Therapeutic Interventions Canalithic Repositioning,Home Exercise Program,Joint Mobilizations,Manual Therapy, Neuromuscular Re-education, Patient/Caregiver Education, Self-Care/Home Management,Soft Tissue Mobilization,Taping, Therapeutic Activities, Therapeutic Exercises Modalities Cold Pack/Ice Massage,Electric Stimulation,Hot Packs, Infrared Therapy,Ultrasound Next Visit Focus/Plan Next Note Type Treatment Note Next Visit Plan cervical isometrics, review exercises, wall posture, open book, manual to neck gently. Plan of Care Dates Plan of Care Start Date 11/18/24 Plan of Care End Date 01/27/25 Electronically Signed by: Rose Mary Grayson, PT 11/20/24 0511 If you are in agreement with this Plan of Care, please return a signed and dated copy. I have reviewed this Plan of Care and certify that the skilled therapy services above are required to meet the patient?s needs. Physician Signature Date Printed Name and Credentials Clinical Instructor Signature Printed Name and Credentials
--- NOTE | 2024-11-20 17:03 | PT.OTN ---
Addendum entered and electronically signed by Rose Mary Grayson, PT 11/25/24 08:13: PT direct supervision and direction to student PT Irma Bell throughout session Original Note: Current Diagnoses Spinal stenosis, cervical region (11/20/24) Radiculopathy, cervical region (11/20/24) Physical Therapy Treatment Note PT-OP-A Visit Information Start: 11/17/24 08:04 Freq: Status: Active Protocol: Document 11/20/24 13:50 [facility] (Rec: 11/20/24 14:06 GG Laptop) Out-Patient Physical Therapy Visit Information Visit Information Visit Type Treatment Note Visit Start Time 13:05 Visit Stop Time 13:44 Visit Number 2 Number of PROPELLANT ASSEMBLER Visits 0 PT-OP-B Current Condition Start: 11/17/24 08:04 Freq: Status: Active Protocol: Document 11/18/24 15:21 [facility] (Rec: 11/18/24 16:14 [facility] [id number]) Current Condition History of Current Condition Onset Date October 01 Current Complaints C3-4 ACDF w/past C4-7 ACDF History of Current Condition Pt reports she had DDD. This was her 6th surgery in September. She has Parkinsons, has vertigo a lot and does epleys and sometimes that works and sometimes it doesn't. Hurts . She is worried she isn't healing as fast as she should. She has twitches and catches in neck. It feels like her neck is shorter than it was before surgery. She wears a soft collar when it is bugging her. 3 neck surgeries and 3 LB surgeries. Reports knees are bone on bone so knows she needs that surgery. Can't walk d/t her knees even though she knows that is valuable in her neck recovery even with a walker. notes KIMBLAL up the back of her neck the past couple of days. Denies lightheadedness or dizziness or UE pain. Has to use UEs to get up to a full stand d/t knee pain. Cleared from restrictions. Allowed 20lbs and gradually inc. Goes back end of November to see doctor . occasionally has trouble swallowing. Notes she thinks that is from the Parkinsons and worked on swallowing in the past. Slight voice changes since the surgery. can't bend over d/t vertigo when bending over. Treatment Goals Patient/Caregiver Goals neck not to hurt, build up the muscles of neck PT-OP-C Subjective Start: 11/17/24 08:04 Freq: Status: Active Protocol: Document 11/20/24 13:50 [facility] (Rec: 11/20/24 14:06 GG Laptop) OP-PT Subjective Patient Comments Patient Comments Pt reports that she was sore today and after doing her home exercises. Notes that she's been using a heating pad before/after sleeping. PT-OP-F Manual Assessment Start: 11/17/24 08:04 Freq: Status: Active Protocol: Document 11/18/24 15:21 [facility] (Rec: 11/18/24 16:14 [facility] [id number]) Manual Assessments Soft Tissue Assessment Soft Tissue Mobility Assessment tightness L>R UT, LS, scalenes , rhomboids, thoracic paraspinals, SO PT-OP-J Posture/Palpation/Skin Start: 11/17/24 08:04 Freq: Status: Active Protocol: Document 11/18/24 15:21 [facility] (Rec: 11/18/24 16:14 [facility] [id number]) Posture Evaluation Comments Posture Comments inc kyphosis, dowager's hump, fwd head, ant tipped and abd scap PT-OP-K Range of Motion Start: 11/17/24 08:04 Freq: Status: Active Protocol: Document 11/18/24 15:21 [facility] (Rec: 11/18/24 16:14 [facility] [id number]) Cervical Spine Range of Motion Cervical Spine Active Degrees Flexion 35 Extension 14 Rotation Left 43 Rotation Right 41 Lateral Flexion Left 16 Lateral Flexion Right 30 ROM Limitations Pain Comments Pain L UT region after ROM PT-OP-L Special Tests Start: 11/17/24 08:04 Freq: Status: Active Protocol: Document 11/18/24 15:21 [facility] (Rec: 11/18/24 16:14 [facility] [id number]) Special Tests Cervical Spine Special Tests arterial screen Test Results normal cranial n screen (dec hearing and vision(hearing aides and glasses)) Comments WNL auscultation of heart and carotid, BP 156/88 PT-OP-M Strength Start: 11/17/24 08:04 Freq: Status: Active Protocol: Document 11/18/24 15:21 [facility] (Rec: 11/18/24 16:14 [facility] [id number]) Cervical Spine Strength Cervical Spine Manual Muscle Testing Testing Position Sitting Flexion (C1-2) 4 Good Extension 4 Good Rotation Left 4 Good Rotation Right 4 Good Lateral Flexion Left (C3) 3+ Fair+ Lateral Flexion Right (C3) 4+ Good+ Comments pain Ext, flex, L SB and rot PT student tested Myotomes testin/5 R , 4/5 L PT-OP-Q Treatments Start: 11/17/24 08:04 Freq: Status: Active Protocol: Document 11/20/24 13:50 [facility] (Rec: 11/20/24 14:06 GG Laptop) Therapeutic Exercises Sidelying Exercises open books Side bilateral Reps/Minutes 15 Comments cued to bring scapula toward table Sitting Exercises stretch Sitting Exercise Name UT pulling on opp hand Side bilateral Reps/Minutes 30 sec Comments attempted other options but pulling w/opp arm worked best for stretch chin tuck Reps/Minutes 5sec x15 Comments added self resistance with hand Standing Exercises row Side bilateral Equipment Used L2 Reps/Minutes 15 Comments cues scap retraction and to not shrug Manual Therapy Treatment Consent Patient gave verbal consent for manual Yes treatment Soft Tissue Mobilization neck/upper back Body Location L upper trap and levator scap Mobilization Type Rolling,Sustained Pressure Body Position seated in chair Comments c/r w/ cervical flexion/ extension and rotation PT-OP-T Assessment and Plan Start: 11/17/24 08:04 Freq: Status: Active Protocol: Document 11/20/24 13:50 [facility] (Rec: 11/20/24 14:06 GG Laptop) Physical Therapy Assessment Goals pain Usp Goal (LTG) Pt will report daily pain no greater than 2/10 for at least 1 week LTG Duration 01/20 NDI Impairment 38% w/collar use Short Term Goal (STG) Pt will score no greater than 28% on NDI to show improved functional ability STG Duration 12/21 Sticker Machine Operator Goal (LTG) Pt will score no greater than 10% on NDI to show improved functional ability LTG Duration 01/27 strength Short Term Goal (STG) Pt will be indep w/HEP STG Duration 12/21 Sticker Machine Operator Goal (LTG) Pt will score at least 4+/5 on all cervical MMT in order to allow her to keep her head up for longer periods during the day w/o pain. LTG Duration 01/27 Assessment Summary Assessment Pt presents with increased soreness d/t HEP, reviewed and provided more cueing for proper technique which did not aggravate the neck when compared doing them at home. Tolerated manual interventions today and will continue improve tolerance to different manual techniques to aid in soft tissue mobility of the posterior neck and upper back musculature. Physical Therapy Plan Frequency and Duration Frequency of Treatment 2x/Week Duration of treatment (weeks) 10 Plan of Care Start Date 11/18/24 Plan of Care End Date 01/27/25 Next Visit Focus/Plan Next Note Type Treatment Note Next Visit Plan cervical isometrics, review exercises, wall posture, doorway pec stretch, manual to neck gently. f/u HEP tolerance and maybe add open books
--- NOTE | 2024-12-04 11:06 | PT-OP ANOTE ---
Pt called and said she had cancelled because she was awaiting to hear if the doctor cleared her to continue d/t creaking in her neck. She said she thought she cancelled via [employer] but then was worried she may have pressed the wrong button. She plans to be at her appt next week. [employer] checked and pt did accidentally write y instead of n to cancel.
--- NOTE | 2024-12-10 18:20 | PT.OTN ---
Current Diagnoses Spinal stenosis, cervical region (12/10/24) Radiculopathy, cervical region (12/10/24) Physical Therapy Treatment Note PT-OP-A Visit Information Start: 11/17/24 08:04 Freq: Status: Active Protocol: Document 12/10/24 13:00 AB (Rec: 12/10/24 13:46 AB Laptop) Out-Patient Physical Therapy Visit Information Visit Information Visit Type Treatment Note Visit Note Access Code [email or web address] Visit Start Time 13:02 Visit Stop Time 13:54 Visit Number 3 Number of EXTRACTION MACHINE OPERATOR Visits 1 PT-OP-B Current Condition Start: 11/17/24 08:04 Freq: Status: Active Protocol: Document 11/18/24 15:21 [facility] (Rec: 11/18/24 16:14 [facility] [id number]) Current Condition History of Current Condition Onset Date September 2 Current Complaints C3-4 ACDF w/past C4-7 ACDF History of Current Pt reports she had DDD. This was her 6th surgery in Condition September. She has Parkinsons, has vertigo a lot and does epleys and sometimes that works and sometimes it doesn' t. Hurts 22/01. She is worried she isn't healing as fast as she should. She has twitches and catches in neck. It feels like her neck is shorter than it was before surgery. She wears a soft collar when it is bugging her . 3 neck surgeries and 3 LB surgeries. Reports knees are bone on bone so knows she needs that surgery. Can't walk d/t her knees even though she knows that is valuable in her neck recovery even with a walker. notes KIMBALL up the back of her neck the past couple of days. Denies lightheadedness or dizziness or UE pain. Has to use UEs to get up to a full stand d/t knee pain. Cleared from restrictions. Allowed 20lbs and gradually inc. Goes back end of November to see doctor. occasionally has trouble swallowing. Notes she thinks that is from the Parkinsons and worked on swallowing in the past. Slight voice changes since the surgery. can't bend over d/t vertigo when bending over. Treatment Goals Patient/Caregiver neck not to hurt, build up the muscles of neck Goals PT-OP-C Subjective Start: 11/17/24 08:04 Freq: Status: Active Protocol: Document 12/10/24 13:00 AB (Rec: 12/10/24 13:46 AB Laptop) OP-PT Subjective Patient Comments Patient Comments Patient reports she isn't sure she should have cancelled this session. Patient reports every bone hurts. Patient also comments she knows she needs to get her arms stronger. PT, Rose Mary Grayson into session. Patient agreeable to proceed with session PT-OP-F Manual Assessment Start: 11/17/24 08:04 Freq: Status: Active Protocol: Document 11/18/24 15:21 [facility] (Rec: 11/18/24 16:14 [facility] [id number]) Manual Assessments Soft Tissue Assessment Soft Tissue Mobility tightness L>R UT, LS, scalenes, rhomboids, thoracic Assessment paraspinals, SO PT-OP-J Posture/Palpation/Skin Start: 11/17/24 08:04 Freq: Status: Active Protocol: Document 11/18/24 15:21 [facility] (Rec: 11/18/24 16:14 [facility] [id number]) Posture Evaluation Comments Posture Comments inc kyphosis, dowager's hump, fwd head, ant tipped and abd scap PT-OP-K Range of Motion Start: 11/17/24 08:04 Freq: Status: Active Protocol: Document 11/18/24 15:21 [facility] (Rec: 11/18/24 16:14 [facility] [id number]) Cervical Spine Range of Motion Cervical Spine Active Degrees Flexion 35 Extension 14 Rotation Left 43 Rotation Right 41 Lateral Flexion Left 16 Lateral Flexion 30 Right ROM Limitations Pain Comments Pain L UT region after ROM PT-OP-L Special Tests Start: 11/17/24 08:04 Freq: Status: Active Protocol: Document 11/18/24 15:21 [facility] (Rec: 11/18/24 16:14 [facility] [id number]) Special Tests Cervical Spine Special Tests arterial screen Test Results normal cranial n screen (dec hearing and vision(hearing aides and glasses)) Comments WNL auscultation of heart and carotid, BP 156/88 PT-OP-M Strength Start: 11/17/24 08:04 Freq: Status: Active Protocol: Document 11/18/24 15:21 [facility] (Rec: 11/18/24 16:14 [facility] [id number]) Cervical Spine Strength Cervical Spine Manual Muscle Testing Testing Position Sitting Flexion (C1-2) 4 Good Extension 4 Good Rotation Left 4 Good Rotation Right 4 Good Lateral Flexion Left 3+ Fair+ (C3) Lateral Flexion 4+ Good+ Right (C3) Comments pain Ext, flex, L SB and rot PT student tested Myotomes testin/ R , 4/5 L PT-OP-Q Treatments Start: 11/17/24 08:04 Freq: Status: Active Protocol: Document 12/10/24 13:00 AB (Rec: 12/10/24 13:46 AB Laptop) Therapeutic Exercises Sitting Exercises Breathing from diaphgragm Reps/Minutes 1 min X 2 Comments verbal cues Standing Exercises pec stretch Standing Exercise 90 deg at door Name Reps/Minutes 60 seconds X 2 each side Comments verbal cues row Standing Exercise row, high row, low row Name Side bilateral Equipment Used L2 Reps/Minutes 15 X each Comments verbal cues Manual Therapy Treatment Consent Patient gave verbal Yes consent for manual treatment Soft Tissue Mobilization neck/upper back Body Location L upper trap and levator scap, scalenes at clavicle Mobilization Type Cross-Friction,Rolling,Sustained Pressure Body Position seated in chair PT-OP-R Modalities Start: 11/17/24 08:04 Freq: Status: Active Protocol: Document 12/10/24 13:00 AB (Rec: 12/10/24 13:46 AB Laptop) Electric Stimulation Electric Stimulation Interferential Current (IFC) Body Location UT/levator scap Intensity 9 Target/Sweep Target Patient Position Sitting Combined With Heat/ Hot Pack Cold Comments 2 pillows under UE's X 15 min PT-OP-T Assessment and Plan Start: 11/17/24 08:04 Freq: Status: Active Protocol: Document 12/10/24 13:00 AB (Rec: 12/10/24 13:46 AB Laptop) Physical Therapy Assessment Goals pain Detention Goal (LTG) Pt will report daily pain no greater than 2/10 for at least 1 week LTG Duration 01/20 NDI Impairment 38% w/collar use Short Term Goal (STG Pt will score no greater than 28% on NDI to show ) improved functional ability STG Duration 12/21 Molasses Feed Mixer Goal (LTG) Pt will score no greater than 10% on NDI to show improved functional ability LTG Duration 01/27 strength Short Term Goal (STG Pt will be indep w/HEP ) STG Duration 12/21 Detention Goal (LTG) Pt will score at least 4+/5 on all cervical MMT in order to allow her to keep her head up for longer periods during the day w/o pain. LTG Duration 01/27 Assessment Summary Assessment Patient reports feeling good, most manual and exercise. Noted excessive UE use with sit to stand, unable even with assist from chair without arms this session. Physical Therapy Plan Frequency and Duration Frequency of 2x/Week Treatment Duration of 10 treatment (weeks) Plan of Care Start 11/18/24 Date Plan of Care End 01/27/25 Date Next Visit Focus/Plan Next Note Type Treatment Note Next Visit Plan cervical isometrics, review exercises, wall posture, doorway pec stretch, manual to neck gently. f/u HEP tolerance and maybe add open books
--- NOTE | 2024-12-16 12:25 | PT.OTN ---
Current Diagnoses Spinal stenosis, cervical region (12/16/24) Radiculopathy, cervical region (12/16/24) Physical Therapy Treatment Note PT-OP-A Visit Information Start: 11/17/24 08:04 Freq: Status: Active Protocol: Document 12/16/24 11:20 AB (Rec: 12/16/24 12:23 AB Laptop) Out-Patient Physical Therapy Visit Information Visit Information Visit Type Treatment Note Visit Note Access Code [email or web address] Visit Start Time 11:36 Visit Stop Time 12:24 Visit Number 4 Number of FUR BLOWING MACHINE ATTENDANT Visits 2 PT-OP-B Current Condition Start: 11/17/24 08:04 Freq: Status: Active Protocol: Document 11/18/24 15:21 [facility] (Rec: 11/18/24 16:14 [facility] [id number]) Current Condition History of Current Condition Onset Date September 2 Current Complaints C3-4 ACDF w/past C4-7 ACDF History of Current Pt reports she had DDD. This was her 6th surgery in Condition September. She has Parkinsons, has vertigo a lot and does epleys and sometimes that works and sometimes it doesn' t. Hurts 22/01. She is worried she isn't healing as fast as she should. She has twitches and catches in neck. It feels like her neck is shorter than it was before surgery. She wears a soft collar when it is bugging her . 3 neck surgeries and 3 LB surgeries. Reports knees are bone on bone so knows she needs that surgery. Can't walk d/t her knees even though she knows that is valuable in her neck recovery even with a walker. notes KIMBALL up the back of her neck the past couple of days. Denies lightheadedness or dizziness or UE pain. Has to use UEs to get up to a full stand d/t knee pain. Cleared from restrictions. Allowed 20lbs and gradually inc. Goes back end of November to see doctor. occasionally has trouble swallowing. Notes she thinks that is from the Parkinsons and worked on swallowing in the past. Slight voice changes since the surgery. can't bend over d/t vertigo when bending over. Treatment Goals Patient/Caregiver neck not to hurt, build up the muscles of neck Goals PT-OP-C Subjective Start: 11/17/24 08:04 Freq: Status: Active Protocol: Document 12/16/24 11:20 AB (Rec: 12/16/24 12:23 AB Laptop) OP-PT Subjective Patient Comments Patient Comments Patient reports she is her own worst enemy, as she had increased pain post waving sign at protest. Patient reports having no increased pain post previous session. Patient rates neck pain 2/10 start of session PT-OP-F Manual Assessment Start: 11/17/24 08:04 Freq: Status: Active Protocol: Document 11/18/24 15:21 [facility] (Rec: 11/18/24 16:14 [facility] [id number]) Manual Assessments Soft Tissue Assessment Soft Tissue Mobility tightness L>R UT, LS, scalenes, rhomboids, thoracic Assessment paraspinals, SO PT-OP-J Posture/Palpation/Skin Start: 11/17/24 08:04 Freq: Status: Active Protocol: Document 11/18/24 15:21 [facility] (Rec: 11/18/24 16:14 [facility] [id number]) Posture Evaluation Comments Posture Comments inc kyphosis, dowager's hump, fwd head, ant tipped and abd scap PT-OP-K Range of Motion Start: 11/17/24 08:04 Freq: Status: Active Protocol: Document 11/18/24 15:21 [facility] (Rec: 11/18/24 16:14 [facility] [id number]) Cervical Spine Range of Motion Cervical Spine Active Degrees Flexion 35 Extension 14 Rotation Left 43 Rotation Right 41 Lateral Flexion Left 16 Lateral Flexion 30 Right ROM Limitations Pain Comments Pain L UT region after ROM PT-OP-L Special Tests Start: 11/17/24 08:04 Freq: Status: Active Protocol: Document 11/18/24 15:21 [facility] (Rec: 11/18/24 16:14 [facility] [id number]) Special Tests Cervical Spine Special Tests arterial screen Test Results normal cranial n screen (dec hearing and vision(hearing aides and glasses)) Comments WNL auscultation of heart and carotid, BP 156/88 PT-OP-M Strength Start: 11/17/24 08:04 Freq: Status: Active Protocol: Document 11/18/24 15:21 [facility] (Rec: 11/18/24 16:14 [facility] [id number]) Cervical Spine Strength Cervical Spine Manual Muscle Testing Testing Position Sitting Flexion (C1-2) 4 Good Extension 4 Good Rotation Left 4 Good Rotation Right 4 Good Lateral Flexion Left 3+ Fair+ (C3) Lateral Flexion 4+ Good+ Right (C3) Comments pain Ext, flex, L SB and rot PT student tested Myotomes testin/5 R , 4/5 L PT-OP-Q Treatments Start: 11/17/24 08:04 Freq: Status: Active Protocol: Document 12/16/24 11:20 AB (Rec: 12/16/24 12:23 AB Laptop) Therapeutic Exercises Sidelying Exercises open books Side bilateral Reps/Minutes 15 Comments monitored for pain Sitting Exercises deep neck flexor isometric reactive Resistance level one band Reps/Minutes X 10 Comments verbal and visual cues Standing Exercises pec stretch Standing Exercise 90 deg at door Name Reps/Minutes 60 seconds X 1each side Comments verbal cues row Standing Exercise row, high row, low row Name Side bilateral Equipment Used L3 Reps/Minutes 15 X each Comments verbal cues, tactile cues at scapula Manual Therapy Treatment Consent Patient gave verbal Yes consent for manual treatment Soft Tissue Mobilization neck/upper back Body Location B upper trap and levator scap, scalenes at clavicle Mobilization Type Cross-Friction,Rolling,Sustained Pressure Body Position seated in chair PT-OP-R Modalities Start: 11/17/24 08:04 Freq: Status: Active Protocol: Document 12/16/24 11:20 AB (Rec: 12/16/24 12:23 AB Laptop) Electric Stimulation Electric Stimulation Interferential Current (IFC) Body Location UT/levator scap Intensity 22 Target/Sweep Target Patient Position Sitting Combined With Heat/ Hot Pack Cold Comments 2 pillows under UE's X 15 min Hot Pack/Cold Pack Treatment Hot Pack Location Bilateral shoulders/CS/UT Patient Position Hooklying PT-OP-T Assessment and Plan Start: 11/17/24 08:04 Freq: Status: Active Protocol: Document 12/16/24 11:20 AB (Rec: 12/16/24 12:23 AB Laptop) Physical Therapy Assessment Goals pain Transit Operator Goal (LTG) Pt will report daily pain no greater than 2/10 for at least 1 week LTG Duration 01/20 NDI Impairment 38% w/collar use Short Term Goal (STG Pt will score no greater than 28% on NDI to show ) improved functional ability STG Duration 12/21 Transit Operator Goal (LTG) Pt will score no greater than 10% on NDI to show improved functional ability LTG Duration 01/27 strength Short Term Goal (STG Pt will be indep w/HEP ) STG Duration 12/21 Usp Goal (LTG) Pt will score at least 4+/5 on all cervical MMT in order to allow her to keep her head up for longer periods during the day w/o pain. LTG Duration 01/27 Assessment Summary Assessment Good julio to progression of level 3 band for rows. Patient reports she will fall if she closes her eyes while standing, therefore deep neck flexor isometric reactive preformed seated. Physical Therapy Plan Frequency and Duration Frequency of 2x/Week Treatment Duration of 10 treatment (weeks) Plan of Care Start 11/18/24 Date Plan of Care End 01/27/25 Date Next Visit Focus/Plan Next Note Type Progress Note Next Visit Plan assess julio to cervical isometrics, review exercises, wall posture, doorway pec stretch, manual to neck gently. f/u HEP, possibly add open books to HEP
--- NOTE | 2025-01-29 14:28 | PT.OPDS ---
Current Diagnoses Spinal stenosis, cervical region (12/16/24) Radiculopathy, cervical region (12/16/24) Visit Care Team Role Provider Type Loyda Savage MD Family Provider Physician Primary Care Provider Specialty: Family Practice Address: [address] [place] [address], [address], [place], [address] Email: [email or web address] Rufino Brower PA-C Attending Provider Non-Staff Referring Provider Specialty: Medical Address: [address] [place] [address], [address], [place], [address] Email: Visit Number Visit Number 4 Discharge Summary PT-OP-B Current Condition Start: 11/17/24 08:04 Freq: Status: Active Protocol: Document 11/18/24 15:21 [facility] (Rec: 11/18/24 16:14 [facility] [id number]) Current Condition History of Current Condition Onset Date October 01 Current Complaints C3-4 ACDF w/past C4-7 ACDF History of Current Pt reports she had DDD. This was her 6th surgery in Condition September. She has Parkinsons, has vertigo a lot and does epleys and sometimes that works and sometimes it doesn' t. Hurts 22/01. She is worried she isn't healing as fast as she should. She has twitches and catches in neck. It feels like her neck is shorter than it was before surgery. She wears a soft collar when it is bugging her . 3 neck surgeries and 3 LB surgeries. Reports knees are bone on bone so knows she needs that surgery. Can't walk d/t her knees even though she knows that is valuable in her neck recovery even with a walker. notes KIMBALL up the back of her neck the past couple of days. Denies lightheadedness or dizziness or UE pain. Has to use UEs to get up to a full stand d/t knee pain. Cleared from restrictions. Allowed 20lbs and gradually inc. Goes back end of November to see doctor. occasionally has trouble swallowing. Notes she thinks that is from the Parkinsons and worked on swallowing in the past. Slight voice changes since the surgery. can't bend over d/t vertigo when bending over. Treatment Goals Patient/Caregiver neck not to hurt, build up the muscles of neck Goals PT-OP-C Subjective Start: 11/17/24 08:04 Freq: Status: Active Protocol: Document 12/16/24 11:20 AB (Rec: 12/16/24 12:23 AB Laptop) OP-PT Subjective Patient Comments Patient Comments Patient reports she is her own worst enemy, as she had increased pain post waving sign at [facility]. Patient reports having no increased pain post previous session. Patient rates neck pain 2/10 start of session PT-OP-F Manual Assessment Start: 11/17/24 08:04 Freq: Status: Active Protocol: Document 11/18/24 15:21 [facility] (Rec: 11/18/24 16:14 [facility] [id number]) Manual Assessments Soft Tissue Assessment Soft Tissue Mobility tightness L>R UT, LS, scalenes, rhomboids, thoracic Assessment paraspinals, SO PT-OP-J Posture/Palpation/Skin Start: 11/17/24 08:04 Freq: Status: Active Protocol: Document 11/18/24 15:21 [facility] (Rec: 11/18/24 16:14 [facility] [id number]) Posture Evaluation Comments Posture Comments inc kyphosis, dowager's hump, fwd head, ant tipped and abd scap PT-OP-K Range of Motion Start: 11/17/24 08:04 Freq: Status: Active Protocol: Document 11/18/24 15:21 [facility] (Rec: 11/18/24 16:14 [facility] [id number]) Cervical Spine Range of Motion Cervical Spine Active Degrees Flexion 35 Extension 14 Rotation Left 43 Rotation Right 41 Lateral Flexion Left 16 Lateral Flexion 30 Right ROM Limitations Pain Comments Pain L UT region after ROM PT-OP-L Special Tests Start: 11/17/24 08:04 Freq: Status: Active Protocol: Document 11/18/24 15:21 [facility] (Rec: 11/18/24 16:14 [facility] [id number]) Special Tests Cervical Spine Special Tests arterial screen Test Results normal cranial n screen (dec hearing and vision(hearing aides and glasses)) Comments WNL auscultation of heart and carotid, BP 156/88 PT-OP-M Strength Start: 11/17/24 08:04 Freq: Status: Active Protocol: Document 11/18/24 15:21 [facility] (Rec: 11/18/24 16:14 [facility] [id number]) Cervical Spine Strength Cervical Spine Manual Muscle Testing Testing Position Sitting Flexion (C1-2) 4 Good Extension 4 Good Rotation Left 4 Good Rotation Right 4 Good Lateral Flexion Left 3+ Fair+ (C3) Lateral Flexion 4+ Good+ Right (C3) Comments pain Ext, flex, L SB and rot PT student tested Myotomes testin/5 R , 4/5 L PT-OP-T Assessment and Plan Start: 11/17/24 08:04 Freq: Status: Active Protocol: Document 01/29/25 14:27 [facility] (Rec: 01/29/25 14:28 [facility] [id number]) Physical Therapy Assessment Goals pain Lock Expert Goal (LTG) Pt will report daily pain no greater than 2/10 for at least 1 week LTG Duration 01/20 NDI Impairment 38% w/collar use Short Term Goal (STG Pt will score no greater than 28% on NDI to show ) improved functional ability STG Duration 12/21 Long-Term Goal (LTG) Pt will score no greater than 10% on NDI to show improved functional ability LTG Duration 01/27 strength Short Term Goal (STG Pt will be indep w/HEP ) STG Duration 12/21 Long-Term Goal (LTG) Pt will score at least 4+/5 on all cervical MMT in order to allow her to keep her head up for longer periods during the day w/o pain. LTG Duration 01/27 Assessment Summary Assessment Pt cancelled last 4 visits and did not reschedule. She made limited progress d/t only seen for 4 visits including IE. Physical Therapy Plan Discharge Physical Therapy Discharge Reasons No Longer Attending PT
== END 2025-01-30 10:10 | disposition home or self-care (01) ==
LOC: PHYS 11:30
PROVIDERS: Family Provider Family Medicine; PCP Family Medicine; Referring Provider Physician Assistant; Visit Provider Physician Assistant
DX: M48.02 Spinal stenosis, cervical region (principal); M54.12 Radiculopathy, cervical region
CPT/HCPCS: 97014; 97110; 97140; 97162; G0283

== ENCOUNTER 2025-02-07 11:44 | Emergency (ER) | payer MEDICARE, SELFPAY ==
[2025-02-07 12:11] VITALS: BP 181/85; PULSE 96; RESP 22; TEMP 37; O2SAT 100; BMI 33.4
--- NOTE | 2025-02-07 12:16 | DI.RAD.S_ITS ---
PROCEDURE: XR CHEST 2V INDICATIONS: URI TECHNIQUE: 2 views of the chest were acquired. COMPARISON: [facility], CR, XR CHEST 2V, 12/28/2021, 12:22. FINDINGS: Surgical changes and devices: None. Lungs and pleura: Lungs are clear. No pleural effusions or pneumothorax. Mediastinum: Mediastinal contours are normal. Heart size is normal. Bones and chest wall: No suspicious bony abnormalities. Soft tissues appear unremarkable. IMPRESSION: No acute cardiopulmonary abnormality is seen. Dictated by: Devin Jiménez M.D. on 02/07/2025 at 11:54 Approved by: Devin Jiménez M.D. on 02/07/2025 at 11:55
[2025-02-07 13:02] LABS: Influenza A - CEPHEID Flu A NEGATIVE (NEGATIVE); Influenza B - CEPHEID Flu B NEGATIVE (NEGATIVE)
[2025-02-07 13:05] LABS: COVID-19 CEPHEID 4-PLEX PCR Negative (Negative)
--- NOTE | 2025-02-07 13:24 | ED_ITS ---
HPI - URI/Sore Throat <Mignon Parsons PA-C - Last Filed: 02/07/25 14:25> General Chief Complaint: Upper Respiratory Symptoms Stated Complaint: Possible pneumonia Time Seen by Provider: 02/07/25 12:27 Source: patient Mode of arrival: Ambulatory History of Present Illness HPI Narrative: Ms. Dennis is a very pleasant 74-year-old female with a past medical history of Parkinson's disease who presents to the emergency department for sore throat, wet cough x2 days. Patient states she would many family members living where they are last week. No known sick contacts. Her symptoms started with a sore throat and have since developed into a wet cough last night and also bilateral ear pressure. She is concerned for possible pneumonia. She denies a history of asthma, any lung diseases, or smoking. She did hear herself wheezing last night which is abnormal for her. No chest pain, difficulty breathing or speaking, abdominal pain, nausea, vomiting, diarrhea, constipation. Related Data Home Medications ?Medication ?Instructions ?Recorded ?Confirmed carbidopa ER 50 mg-levodopa 200 mg 1 tab PO .COMPLEX 0 08/25/20 01/07/21 tablet,extended release Previous Rx's ?Medication ?Instructions ?Recorded hydrocodone 7.5 mg-acetaminophen 1 tab PO Q4-6H PRN pa in #120 tabs 01/07/21 325 mg tablet lidocaine 5 % topical patch 1 patch topical DAILY #30 ea 01/07/21 (Lidoderm) peg 3350-electrolytes 236 240 ml PO Q10M #4,000 mL 01/19 gram-22.74 gram-6.74 gram-5.86 gram solution (Golytely) prednisone 20 mg tablet 40 mg (2 x 20 mg) PO DAILY 5 days 02/07/25 #10 tabs Allergies Allergy/AdvReac Type Severity Reaction Status Date / Time epinephrine (EPINEPHRINE) AdvReac Unknown SENSITIVE Verified 02/07/25 12:12 Review of Systems <Mignon Parsons PA-C - Last Filed: 02/07/25 14:25> Review of Systems ROS Unobtainable: All systems reviewed & are unremarkable except as noted in HPI and below Patient History <Mignon Parsons PA-C - Last Filed: 02/07/25 14:25> Medical History Chronic cough Back pain Seasonal allergies Herniated cervical disc Cervical radiculopathy Parkinson's disease (06/18/14) Depression (03/24/11) Surgical History Status post lumbar spinal fusion S/P cervical spinal fusion Family History Father Parkinsons disease CAD (coronary artery disease) Mother Alzheimer's dementia CVA (cerebral infarction) Sister Melanoma Social History household members: spouse Smoking Status: Never smoker Smoking Status: Never smoker alcohol intake frequency: holidays/special occasions only Exam <Mignon Parsons PA-C - Last Filed: 02/07/25 14:25> Narrative Exam Narrative: GENERAL: 74 year old patient appears stated age. Well-developed patient, in no acute distress. HEAD: Atraumatic. Normocephalic. EYES: No scleral icterus. No injection or drainage. ENT: Right ear canal with scant cerumen, visible TM is pearly roberson and normal. Left ear canal clear with a normal pearly roberson TM. Nose without bleeding, puru lent drainage. Throat with mild posterior oropharyngeal erythema, NO tonsillar hypertrophy or exudate, uvula is midline. Airway patent. NECK: Trachea midline. Cervical ROM intact. CARDIOVASCULAR: Regular rate and rhythm. RESPIRATORY: ?Nonlabored respirations. ?No tachypnea. Speaking in clear, full sentences. ?Clear to auscultation. Breath sounds equal bilaterally. No wheezes, rales, or rhonchi. ? GASTROINTESTINAL: Abdomen soft, non-tender, nondistended. EXTREMITIES: No LE BL edema. NEURO: AOx3. ?Clear speech. ?Moves all 4 extremities appropriately. SKIN: No rash or erythema of visible areas Initial Vital Signs Initial Vital Signs: Vital Signs Temperature 98.6 F 02/07/25 12:11 Pulse Rate 96 H 02/07/25 12:11 Respiratory Rate 22 02/07/25 12:11 Blood Pressure 181/85 H 02/07/25 12:11 Pulse Oximetry 100 02/07/25 12:11 Oxygen Delivery Method Room Air 02/07/25 12:11 <Natacha Manzano MD - Last Filed: 02/07/25 16:10> Initial Vital Signs Initial Vital Signs: Vital Signs Temperature 98.6 F 02/07/25 12:11 Pulse Rate 96 H 02/07/25 12:11 Respiratory Rate 22 02/07/25 12:11 Blood Pressure 181/85 H 02/07/25 12:11 Pulse Oximetry 100 02/07/25 12:11 Oxygen Delivery Method Room Air 02/07/25 12:11 Course <Mignon Parsons PA-C - Last Filed: 02/07/25 14:25> Orders Ordered: ED Orders 02/07/25 12:16 XR chest 2V Stat 02/07/25 12:19 Covid-19 + FLU A/B + RSV - PCR Stat Discontinued Medications Prednisone (Prednisone 20 Mg Tablet) 40 mg PO NOW ONE Stop: 02/07/25 13:45 Last Admin: 02/07/25 13:52 Dose: 40 mg Documented By: SB Vital Signs Vital signs: Vital Signs - 8 hr 02/07/25 12:11 02/07/25 14:23 Temperature 98.6 F Pulse Rate 96 H 88 Respiratory Rate 22 18 Blood Pressure 181/85 H 183/83 H Pulse Oximetry 100 96 Oxygen Delivery Method Room Air Room Air <Natacha Manzano MD - Last Filed: 02/07/25 16:10> Orders Ordered: ED Orders 02/07/25 12:16 XR chest 2V Stat 02/07/25 12:19 Covid-19 + FLU A/B + RSV - PCR Stat Discontinued Medications Prednisone (Prednisone 20 Mg Tablet) 40 mg PO NOW ONE Stop: 02/07/25 13:45 Last Admin: 02/07/25 13:52 Dose: 40 mg Documented By: SB Vital Signs Vital signs: Vital Signs - 8 hr 02/07/25 12:11 02/07/25 14:23 Temperature 98.6 F Pulse Rate 96 H 88 Respiratory Rate 22 18 Blood Pressure 181/85 H 183/83 H Pulse Oximetry 100 96 Oxygen Delivery Method Room Air Room Air MDM - URI/Sore Throat <Mignon Parsons PA-C - Last Filed: 02/07/25 14:25> Medical Records Attestation: I reviewed the patient's medical records. Lab Data Labs: Lab Results 02/07/25 Range/Units 12:19 SARS-CoV-2 (PCR) Negative (Negative) Influenza A (RT-PCR) Flu a negative (NEGATIVE) Influenza B (RT-PCR) Flu b negative (NEGATIVE) RSV (PCR) Negative (Negative) Imaging Data Chest x-ray: Radiologist's Impression: PROCEDURE: XR CHEST 2V INDICATIONS: URI TECHNIQUE: 2 views of the chest were acquired. COMPARISON: [facility], , XR CHEST 2V, 12/28/2021, 12:22. FINDINGS: Surgical changes and devices: None. Lungs and pleura: Lungs are clear. No pleural effusions or pneumothorax. Mediastinum: Mediastinal contours are normal. Heart size is normal. Bones and chest wall: No suspicious bony abnormalities. Soft tissues appear unremarkable. IMPRESSION: No acute cardiopulmonary abnormality is seen. Dictated by: Devin Jiménez M.D. on 02/07/2025 at 11:54 Approved by: Devin Jiménez M.D. on 02/07/2025 at 11:55 MDM Narrative Medical decision making narrative: 74-year-old female with a past medical history of Parkinson's disease who presents to the emergency department for sore throat, wet cough x2 days. Differential diagnosis includes but is not limited to pharyngitis, bronchitis, viral URI, pneumonia, atypical pneumonia, reactive airway disease, etc. On exam patient is in no acute distress, nontoxic appearing, vital signs reveal mildly elevated blood pressure and heart rate in triage with a normal respiratory rate, temperature and oxygen saturation, 100% on room air. Placed the patient on vital sign machine during my exam and heart rate was in the low 90s, blood pressure 170/80. Her lungs are clear to auscultation bilaterally throughout all lung rose, she did report experiencing some wheezing last night at home though. She has mild posterior oropharyngeal erythema and normal ear exam. She declines strep swab, states symptoms do not feel at all similar to prior strep infection, in addition she is having primarily a cough. Viral swab and chest x-ray obtained in triage revealing negative x-ray, no signs of pneumonia, negative viral swab. At this time suspect patient's symptoms are related to viral URI, we will treat inflammation/wheezing with prednisone. She declines the need for antitussive. Recommended supportive care, rest, hydration, ibuprofen, Tylenol, prednisone. Discussed strict ED return precautions. Patient verbalized understanding of all information and is agreeable to the plan. She is stable for discharge home. <Natacha Manzano MD - Last Filed: 02/07/25 16:10> Lab Data Labs: Lab Results 02/07/25 Range/Units 12:19 SARS-CoV-2 (PCR) Negative (Negative) Influenza A (RT-PCR) Flu a negative (NEGATIVE) Influenza B (RT-PCR) Flu b negative (NEGATIVE) RSV (PCR) Negative (Negative) Discharge Plan Departure Patient Disposition: Home Clinical Impression: Bronchitis URI (upper respiratory infection) Qualifiers: URI type: unspecified viral URI Qualified Code(s): J06.9 - Acute upper respiratory infection, unspecified Instructions: DI for Viral Upper Respiratory Infection -- Adult Activity Restrictions/Additional Instructions: Dear Jessie Sonny, Thank you for coming to the emergency department. Today you were evaluated for cough, sore throat, ear pressure, concerned for pneumonia. You tested negative for COVID, flu a, flu B and RSV and your chest x-ray was negative for pneumonia. At this time I suspect your symptoms are due to a viral upper respiratory infection/bronchitis. Because you were having some wheezing at home, I did prescribe you prednisone 40 mg to take once a day for 5 days to help reduce inflammation in the lungs. Please return to the emergency department if you develop difficulty breathing, chest pain, fevers, worsening symptoms or any other concerns. Please follow up with your primary care doctor within the next 2-3 days for ER follow-up. (If you do not have a PCP you can call [phone]. ?to schedule an appointment with an [facility] Primary Care Provider) IF YOU DEVELOP ANY NEW OR WORSENING SYMPTOMS, RETURN TO THE ER! Please read the attached instructions, they highlight more specific treatments and interventions for you at home. Thank you for letting me participate in your care, Mignon Parsons PA-C Prescriptions: New prednisone 20 mg tablet 40 mg PO DAILY 5 Days Qty: 10 0RF No Action peg 3350-electrolytes [Golytely] 236-22.74-6.74 -5.86 gram recon soln 240 ml PO Q10M Qty: 4000 0RF Rx Instructions: until fecal effluent is clear carbidopa-levodopa 50-200 mg tablet extended release 1 tab PO .COMPLEX Rx Instructions: Morning, dinner, 1/2 tab at bedtime hydrocodone-acetaminophen 7.5-325 mg tablet 1 tab PO Q4-6H PRN (Reason: pain) Qty: 120 0RF lidocaine [Lidoderm] 5 % adhesive patch,medicated 1 patch topical DAILY Qty: 30 0RF Rx Instructions: leave on most painful area for up to 12 hrs Referrals: Loyda Savage MD [Primary Care Provider, Family Practice] Stand Alone Forms: Patient Portal/API ED Sign-out <Natacha Manzano MD - Last Filed: 02/07/25 16:10> Cosign ED Attending Cosignature Attestation: I was immediately available in the department for consultation throughout this patient's visit. Natacha Manzano MD
[2025-02-07 14:23] VITALS: BP 183/83; PULSE 88; RESP 18; O2SAT 96
== END 2025-02-07 14:24 | disposition home or self-care (01) ==
PROVIDERS: Emergency Provider Physician Assistant; Family Provider Family Medicine; PCP Family Medicine
DX: J40 Bronchitis, not specified as acute or chronic (principal); J06.9 Acute upper respiratory infection, unspecified
CPT/HCPCS: 71046; 87637; 99283

== ENCOUNTER → 2025-03-24 09:48 | Outpatient (CLI) | payer MEDICARE, SELFPAY ==
[2025-03-24 13:18] LABS: Appearance Urine UA CLEAR; Bilirubin Urine UA NEGATIVE (NEGATIVE); Color Urine UA YELLOW; Glucose Urine UA NEGATIVE (Negative); Ketones Urine UA NEGATIVE (NEGATIVE); Leukocyte Esterase Urine UA NEGATIVE (NEGATIVE); Nitrite Urine UA NEGATIVE (Negative); Occult Blood Urine UA NEGATIVE (Negative); Protein Urine UA NEGATIVE (Negative); Specific Gravity Urine UA 1.020 (1.000-1.035); Urobilinogen Urine UA 0.2 E.U./dL (0.2)
[2025-03-24 13:19] LABS: pH Urine UA 6.0 (4.5-8.0)
[2025-03-24 13:51] LABS: Culture Indicated Urine Cult Not Indicated
== END ==
PROVIDERS: Family Provider Family Medicine; PCP Family Medicine; Visit Provider Obstetrics & Gynecology Gynecology
DX: N39.41 Urge incontinence (principal); N32.81 Overactive bladder; G20.A1 Parkinson's disease without dyskinesia, without mention of fluctuations
CPT/HCPCS: 51701; 81001; 99213